=== PATIENT | male | born 1940 | race Caucasian/White ===

== ENCOUNTER 2018-08-16 15:05 | Outpatient (REF) | payer MEDICARE, OTHER, SELFPAY ==
[2018-08-16 21:17] LABS: Anion Gap 8.4 mmol/L (3-11); BUN 29 mg/dL (7-18); CO2 27.6 mmol/L (21.0-32.0); CREATININE 1.24 mg/dL (0.70-1.30); Calcium 9.9 mg/dL (8.5-10.1); Chloride 106 mmol/L (98-107); Estimated GFR 56.68 (mL/min/1.73m2); Glucose 91 mg/dL (70-100); Potassium 3.8 mmol/L (3.5-5.1); Sodium 142 mmol/L (136-145)
== END 2018-08-16 15:25 ==
LOC: NCHCN 15:05
PROVIDERS: PCP Nurse Practitioner Family; Visit Provider Nurse Practitioner Family
DX: I10 Essential (primary) hypertension (principal); M10.9 Gout, unspecified; E83.52 Hypercalcemia; D22.70 Melanocytic nevi of unspecified lower limb, including hip; F41.9 Anxiety disorder, unspecified; F51.04 Psychophysiologic insomnia
CPT/HCPCS: 80048

== ENCOUNTER 2019-02-11 13:59 | Outpatient (REF) | payer MEDICARE, OTHER, SELFPAY ==
[2019-02-11 22:15] LABS: ALT 25 U/L (12-78); AST 15 U/L (15-37); Albumin 3.4 g/dL (3.4-5.0); Alkaline Phosphatase 81 U/L (46-116); Anion Gap 10.1 mmol/L (3-11); BUN 27 mg/dL (7-18); CO2 27.9 mmol/L (21.0-32.0); CREATININE 1.24 mg/dL (0.70-1.30); Calcium 9.6 mg/dL (8.5-10.1); Calculated LDL 95 mg/dL; Chloride 108 mmol/L (98-107); Cholesterol 182 mg/dL (50-200); Estimated GFR 56.68 (mL/min/1.73m2); Glucose 92 mg/dL (70-100); HDL Cholesterol 48 mg/dL (40-60); Potassium 3.8 mmol/L (3.5-5.1); Sodium 146 mmol/L (136-145); Total Protein 6.8 g/dL (6.4-8.2); Triglyceride 196 mg/dL (30-150)
== END 2019-02-11 14:19 ==
LOC: NCHCN 13:59
PROVIDERS: PCP Nurse Practitioner Family; Visit Provider Nurse Practitioner Family
DX: I10 Essential (primary) hypertension (principal); F41.9 Anxiety disorder, unspecified; I25.10 Atherosclerotic heart disease of native coronary artery without angina pectoris; M10.9 Gout, unspecified; K22.70 Barrett's esophagus without dysplasia; Z87.442 Personal history of urinary calculi
CPT/HCPCS: 80053; 80061; 83721

== ENCOUNTER 2019-03-19 10:09 | Outpatient (REF) | payer MEDICARE, OTHER, SELFPAY ==
[2019-03-19 12:08] LABS: ALT 24 U/L (12-78); AST 17 U/L (15-37); Albumin 3.3 g/dL (3.4-5.0); Alkaline Phosphatase 69 U/L (46-116); Anion Gap 7.8 mmol/L (3-11); BUN 23 mg/dL (7-18); Bilirubin, Total 0.9 mg/dL (0.2-1.0); CO2 28.2 mmol/L (21.0-32.0); Calcium 9.4 mg/dL (8.5-10.1); Calculated LDL 103 mg/dL; Chloride 106 mmol/L (98-107); Cholesterol 168 mg/dL (50-200); Estimated GFR 58.86 (mL/min/1.73m2); Glucose 80 mg/dL (70-100); HDL Cholesterol 47 mg/dL (40-60); Potassium 4.1 mmol/L (3.5-5.1); Sodium 142 mmol/L (136-145); TSH 0.65 uIU/mL (0.36-3.74); Total Protein 6.3 g/dL (6.4-8.2); Triglyceride 94 mg/dL (30-150)
== END 2019-03-19 10:29 ==
LOC: NCHCN 10:09
PROVIDERS: PCP Nurse Practitioner Family; Visit Provider Nurse Practitioner Family
DX: I10 Essential (primary) hypertension (principal); I25.10 Atherosclerotic heart disease of native coronary artery without angina pectoris; E83.52 Hypercalcemia
CPT/HCPCS: 80053; 80061; 83721; 84443

== ENCOUNTER 2019-04-15 17:26 | Inpatient (IN) | payer MEDICARE, OTHER, SELFPAY ==
[2019-04-15] VITALS (16 sets, daily range): BP systolic 152–175; BP diastolic 84–97; PULSE 66–91; RESP 12–29; TEMP 36.3–36.6; O2SAT 96–99
--- NOTE | 2019-04-15 17:40 | DI.CT_ITS ---
SYMPTOM/DIAGNOSIS: WORD FINDING DIFFICULTY TODAY CT ANGIOGRAPHY OF THE HEAD AND NECK: CT angiography was performed with multi slice acquisition and multi planar and 3D reconstruction. The common carotid arteries are normal in diameter. There is calcification of both common carotid bulbs. There is plaque in the proximal right internal carotid artery causing approximately 50% stenosis. More distally, the internal carotid artery shows normal diameter. The left internal carotid artery shows normal diameter throughout. The vertebral arteries are normal in diameter. IMPRESSION: Stenosis of approximately 50% of the proximal right internal carotid artery. CTA HEAD: CT angiography was performed with multi slice acquisition and multi planar and 3D reconstruction. The distal vertebral arteries, basal artery and posterior cerebral arteries as well as anterior cerebral artery show normal diameter. The right middle cerebral artery shows normal diameter. The left M-1 segment shows a question of a focal area of narrowing vs artifact. No enhancing masses are seen in the brain. Degenerative changes are noted in the spine. IMPRESSION: Question of a focal area of narrowing in the left M-1 segment vs artifact.
--- NOTE | 2019-04-15 17:40 | DI.RAD_ITS ---
SYMPTOM/DIAGNOSIS: ALTERED MENTATION PA AND LATERAL CHEST: Comparison is made with 11 Jul 2016. The heart size is within normal limits. The aorta is again noted to be tortuous. The lungs are clear. No infiltrate, effusion or pulmonary edema is seen. IMPRESSION: No acute abnormality.
--- NOTE | 2019-04-15 17:40 | DI.CT_ITS ---
SYMPTOM/DIAGNOSIS: WORD FINDING DIFFICULTY TODAY NONCONTRAST HEAD CT: No intracranial hemorrhage, mass or infarct is seen. There is no evidence of skull fracture. The ventricles are normal in size. There is minimal patchiness of the white matter consistent with mild microvascular disease. There is some mucous retention at the floor of the left maxillary sinus. IMPRESSION: Mild white matter changes of small vessel disease. No acute abnormality.
[2019-04-15] MEDS: Normal Saline 1,000 ML 125 ML IV (17:45)
--- NOTE | 2019-04-15 17:46 | ED.GENADUL_ITS ---
Discharge Plan Disposition Condition: Improving Discharge Details Chief Complaint: AMS/LOC Admit Date/Time: 04/15/19 20:24 Admit Provider: Ricardo Fam Attending Provider: Kevin Piña Primary Care Provider: Lori Carey ED Provider: Eyal Conway Discharge Instructions Activity:: Activity as Tolerated Equipment/Supplies:: No Equipment Needed Diet:: As Tolerated Discharge Orders Discharge Orders: Discharge Order (Routine); Ordered 04/16/19 Ordered By: Danitza Stanton Discharge Data Discharge Date/Time-TO BE ENTERED AT DEPARTURE: 04/15/19 21:35 Medical Decision Making 17:50 --79-year-old male with history of hypertension here with confusion and word finding difficulty since waking this morning at 8 AM. Symptoms seem to be waxing and waning today. Patient is frustrated with his inability to find words at times. Speech is fluent. No focal weakness or numbness appreciated on neurologic exam. ECG was reviewed and interpreted by me: Sinus rhythm 81 bpm, normal axis, subtle ST depressions noted V4 to V6 -these were present on prior EKG 07/11/2016. Consider CVA versus acute delirium versus other. Plan to obtain CT and CTA of the head and neck. Will check urinalysis and chest x-ray. 19:15 -- Labs reviewed and nondiagnostic. CT head interpreted by radiology: no acute abnormality. CTA head interpreted by radiologY: focal stenosis in the M1 segment left MCA. Called [facility] [place] to discuss with neurology. Requested radiology send CTA to [facility] [place]. 19:55 -- Spoke with neuro at [facility] [place] Dr. Still and interventional neurologist, discussed ED presentation and course including diagnostics, CTA images reviewed, recommend no intervention at this time. Recommend medical management - recommends asa and plavix, MRI and echo. Plan to admit to hospitalist. Spoke with Dr. Fam. HPI General Mode of arrival: ambulatory . Date/Time Provider Initiated Documentation: 04/15/19 17:27 . Limitations to Documentation: no limitations . Information obtained by: patient . HPI Narrative: 79-year-old male with history of hypertension, presents with chief complaint of difficulty with speech since waking this morning around 8 AM. Patient describes word finding difficulty intermittent throughout the day. notes he is been a little bit confused. Symptoms are intermittent, moderate, no modifiers. He has no associated headache. No focal weakness or numbness. No chest pain or shortness of breath. No abdominal pain. No dysuria or cough. No fever. Related Data Home Medications Medication Instructions Recorded Confirmed Fish Oil 300 mg PO DAILY AM 07/11/16 04/24/19 amlodipine 10 mg PO DAILY 07/11/16 04/24/19 aspirin [Aspir-81] 81 mg PO DAILY 07/11/16 04/24/19 cholecalciferol (vitamin D3) 1,000 unit PO DAILY AM 07/11/16 04/24/19 [Vitamin D3] clonazepam 0.5 mg PO DAILY 07/11/16 04/24/19 famotidine 20 mg PO DAILY AM 07/11/16 04/24/19 lisinopril 40 mg PO DAILY AM 07/11/16 04/24/19 naproxen sodium [Aleve] 220 mg PO 07/11/16 potassium chloride 20 meq PO DAILY AM 07/11/16 04/24/19 saw palmetto 80 mg PO DAILY AM 07/11/16 04/24/19 atorvastatin 20 mg PO QHS #30 tab 04/16/19 04/24/19 clopidogrel [Plavix] 75 mg PO DAILY #30 tab 04/16/19 04/24/19 pantoprazole 40 mg PO DAILY@0730 #30 tab 04/16/19 04/24/19 melatonin 3 mg PO HS PRN 04/24/19 04/24/19 Previous Rx's Medication Instructions Recorded atorvastatin 20 mg PO QHS #30 tab 04/16/19 clopidogrel [Plavix] 75 mg PO DAILY #30 tab 04/16/19 pantoprazole 40 mg PO DAILY@0730 #30 tab 04/16/19 Allergies Allergy/AdvReac Type Severity Reaction Status Date / Time Beta-Blockers AdvReac Other (See Verified 04/24/19 08:00 (Beta-Adrenergic Bloc Comment) lactose AdvReac Unverified 04/24/19 07:59 General Stated Complaint: AMS/LOC LAMIN: 2 Review of Systems Review of Systems All systems reviewed & are unremarkable except as noted in HPI and below Cardiovascular Denies chest pain and Denies dyspnea Respiratory Denies dyspnea Neurologic Reports as per HPI [facility] Medical History (Updated 04/24/19 @ 08:42 by Krystal Ramos) Barretts esophagus (Acute) mild Cataract (Chronic) Essential hypertension (Acute) Fall (Acute) Hx of closed fracture (Acute) R ankle, sternum Surgical History History of decompression of ulnar nerve (Acute) left Hx of arthroscopic knee surgery (Chronic) left Hx of cataract extraction (Chronic) Hx of cholecystectomy (Chronic) Hx of colonoscopy (Chronic) Hx of esophagogastroduodenoscopy (Chronic) Family History Father Heart disease Social History Smoking/Tobacco Use Status: Never Alcohol Intake: current Alcohol Intake frequency: a few times a week Alcohol type: wine Drug use: Never Substance use type: does not use Details: alcohol: t-14 Do you feel safe at home: Yes Do you feel safe in your relationship?: Yes Exam Const General: cooperative and no acute distress HENMT Head: normocephalic and atraumatic Mouth: moist mucous membranes Eyes Conjunctivae: normal conjunctivae Sclera: normal sclerae EOM: EOM intact bilaterally Neck Neck: trachea midline and supple Resp Auscultation: clear to auscultation bilaterally, no rales, no rhonchi and no wheezes Cardio Jugular venous pressure: no JVD Rate: regular rate and not tachycardic Rhythm: regular rhythm GI Palpation: soft, not firm, no guarding, no masses, not rigid and nontender Skin General skin exam: no rashes or lesions noted Neuro General: alert, awake, oriented Patient Orientation: Person, Place and Confused (aug 3) and tone normal Cranial Nerves: CN's II-XI intact bilaterally Cognition: normal cognition Speech: expressive aphasia (intermittent word finding difficulty) Motor: strength 5/5 throughout Sensory Exam: no sensory deficits noted Coordination: [id number] test normal Extrem General: no edema Psych Appearance: grossly normal Mental Status: mental status grossly normal Speech and Movement: speech and movement normal Course Vital Signs Temperature 36.6 C 04/15/19 17:32 Pulse 80 04/15/19 17:32 Respiratory Rate 16 04/15/19 17:32 Blood Pressure 160/84 H 04/15/19 17:32 Pulse Oximetry 99 04/15/19 17:32 Temperature 36.6 C 04/15/19 17:32 Temperature Source Temporal Artery Scan 04/15/19 17:32 Pulse 80 04/15/19 17:32 Respiratory Rate 16 04/15/19 17:32 Respiratory Effort 04/15/19 17:39 Blood Pressure 160/84 H 04/15/19 17:32 Pulse Oximetry 99 04/15/19 17:32 Oxygen Delivery Method Room Air 04/15/19 17:32 Oxygen Flow Rate 0 04/15/19 17:32 Pain Level 0 04/15/19 17:32
[2019-04-15 17:55] LABS: Absolute Basophil Count 0.02 k/cumm (0.0-0.2); Absolute Eosinophil Count 0.27 k/cumm (0.0-0.7); Absolute Lymphocyte Count 1.46 k/cumm (1.2-3.4); Absolute Monocyte Count 0.46 k/cumm (0.11-0.7); Absolute Neutrophil Count 3.35 k/cumm (1.2-6.7); Basophils % 0.4; Eosinophils % 4.9; HCT 44.2 % (40.0-50.0); HGB 15.4 g/dL (13.5-17.5); Lymphocytes % 26.3; Mean Corp. HGB Concentration 34.8 g/dL (32.0-36.0); Mean Corpuscular Hemoglobin 33.6 pg (27.0-33.0); Mean Corpuscular Volume 96.3 fL (80-95); Monocytes % 8.3; Neutrophils % 60.1; Platelet Count 173 x1000/uL (130-400); RBC 4.59 m/cumm (4.50-6.00); RBC Distribution Width 13.3 % (11.8-14.1); White Blood Cell Count 5.56 k/cumm (4.4-10.8)
[2019-04-15 18:10] LABS: ALT 21 U/L (16-63); AST 16 U/L (15-37); Albumin 3.8 g/dL (3.4-5.0); Alkaline Phosphatase 77 U/L (46-116); Anion Gap 9.2 mmol/L (3-11); BUN 21 mg/dL (7-18); Bilirubin, Total 1.4 mg/dL (0.2-1.0); CO2 24.8 mmol/L (21.0-32.0); CREATININE 1.39 mg/dL (0.70-1.30); Calcium 9.8 mg/dL (8.5-10.1); Chloride 107 mmol/L (98-107); Estimated GFR 49.55 (mL/min/1.73m2); Glucose 114 mg/dL (70-100); Magnesium 2.2 mg/dL (1.8-2.4); Potassium 3.7 mmol/L (3.5-5.1); Sodium 141 mmol/L (136-145); Total Protein 7.5 g/dL (6.4-8.2); Troponin I < 0.05 ng/mL (0.00-0.06)
[2019-04-15 18:13] LABS: Bilirubin Negative (Negative); Blood Small (Negative); Clarity Clear (Clear); Glucose Negative (Negative); Ketones Negative (Negative); Leukocyte Esterase Negative (Negative); Nitrite Negative (Negative); Urobilinogen 0.2 EU/dL (Up TO 0.2)
[2019-04-15] MEDS: Omnipaque 350 MG/ML 100 ML BTL IJ (18:23)
--- NOTE | 2019-04-15 18:23 | DI.VRAD_ITS ---
EXAM: CT Head Without Contrast EXAM DATE/TIME: 04/15/2019 5:43 PM CLINICAL HISTORY: 79 years old, male; Speech disturbance; Patient HX: Word finding difficulty today TECHNIQUE: Imaging protocol: Computed tomography of the head without contrast. Other technique: STROKE PROTOCOL was implemented. COMPARISON: No relevant prior studies available. FINDINGS: Brain: Generalized atrophy and chronic white matter ischemic changes. There is no mass, acute hemorrhage or acute infarct. Ventricles: Normal. No ventriculomegaly. Bones/joints: Unremarkable. No acute fracture. Sinuses: There is minimal mucosal thickening in the paranasal sinuses. Mastoid air cells: Visualized mastoid air cells are well aerated. Soft tissues: Unremarkable. IMPRESSION: No acute abnormality. Additional findings as described. ASSESSMENT: ASPECTS ([place] Stroke Program Early CT Score) is 10. Dictated and Authenticated by: Krystal Rene MD. Ordering:ALEKSANDRA Birch MD
[2019-04-15 18:24] LABS: Bacteria Negative HPF (Negative); C & S Indicated? No; Casts 0-2 Hyaline LPF (Negative); Crystals Negative HPF (Negative); Epithelial Cells Negative HPF (Negative); Mucus Trace (Negative); WBC 0-2 HPF (0-5)
--- NOTE | 2019-04-15 18:30 | DI.VRAD_ITS ---
Addendum created by Krystal Rene MD on 04/15/2019 7:52:26 PM EDT Findings discussed withNat MEYER04/15/2019 7:52 PM EDT. Initial report created on 04/15/2019 6:30:32 PM EDT EXAM: CT Angiography Head With Contrast EXAM DATE/TIME: 04/15/2019 5:43 PM CLINICAL HISTORY: 79 years old, male; Speech disturbance; Patient HX: Word finding difficulty today TECHNIQUE: Imaging protocol: Computed tomography angiography of the head with intravenous contrast. 3D rendering: MIP reconstructed images were created and reviewed. COMPARISON: CT HEAD WO 04/15/2019 5:58 PM FINDINGS: Right internal carotid artery: Unremarkable. Intracranial segment is patent with no significant stenosis. No aneurysm. Right anterior cerebral artery: Unremarkable. No occlusion or significant stenosis. No aneurysm. Right middle cerebral artery: Unremarkable. No occlusion or significant stenosis. No aneurysm. Right posterior cerebral artery: Unremarkable. No occlusion or significant stenosis. No aneurysm. Right vertebral artery: Unremarkable. No occlusion or significant stenosis. No aneurysm. Left internal carotid artery: Unremarkable. Intracranial segment is patent with no significant stenosis. No aneurysm. Left anterior cerebral artery: Unremarkable. No occlusion or significant stenosis. No aneurysm. Left middle cerebral artery: There is an 8mm stenosis in the M1 segment of the left MCA best seen on series 6 image 34. The peripheral branches demonstrate normal perfusion within the left MCA territory. No aneurysm. Left posterior cerebral artery: Unremarkable. No occlusion or significant stenosis. No aneurysm. Left vertebral artery: Unremarkable. No occlusion or significant stenosis. No aneurysm. Basilar artery: Unremarkable. No occlusion or significant stenosis. No aneurysm. 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 Additional findings as described. EXAM: CT Angiography Neck With Contrast EXAM DATE/TIME: 04/15/2019 5:43 PM CLINICAL HISTORY: 79 years old, male; Speech disturbance; Patient HX: Word finding difficulty today TECHNIQUE: Imaging protocol: Computed tomographic angiography images of the neck with intravenous contrast using CT angiography protocol. 3D rendering: MIP reconstructed images were created and reviewed. COMPARISON: CT HEAD WO 04/15/2019 5:58 PM FINDINGS: VASCULATURE: Right common carotid artery: Unremarkable. No stenosis. No dissection or occlusion. Right internal carotid artery: There is a mild less than 50% stenosis in the proximal right internal carotid artery. Right external carotid artery: Unremarkable. No occlusion or stenosis of the origin. Right vertebral artery: Unremarkable. No stenosis. No dissection or occlusion. Left common carotid artery: Unremarkable. No stenosis. No dissection or occlusion. Left internal carotid artery: Unremarkable extracranial segment. No stenosis. No dissection or occlusion. Left external carotid artery: Unremarkable. No occlusion or stenosis of the origin. Left vertebral artery: Unremarkable. No stenosis. No dissection or occlusion. NECK: Bones/joints: Multilevel advanced facet arthropathy. There is mild central spinal stenosis, secondary to disc buldge/osteophytic spurring. Soft tissues: Normal. No significant soft tissue swelling. IMPRESSION: Mild less than 50% stenosis in the proximal right internal carotid or repeat significant left carotid stenosis. COMMENT: Reference per NASCET criteria for degree of stenosis: Mild: less than 50% stenosis. Moderate: 50-69% stenosis. Severe: 70-94% stenosis. Near occlusion: 95-99% stenosis. Dictated and Authenticated by: Krystal Rene MD. Ordering:ALEKSANDRA Birch MD
--- NOTE | 2019-04-15 18:31 | DI.VRAD_ITS ---
EXAM: XR Chest, 2 Views EXAM DATE/TIME: 04/15/2019 6:20 PM CLINICAL HISTORY: 79 years old, male; Other: Altered mentation TECHNIQUE: Imaging protocol: XR of the chest Views: 2 views. COMPARISON: CR CHEST 2 VIEWS PA,LAT 07/11/2016 10:00 AM FINDINGS: Lungs: Hyperinflation and interstitial changes consistent with COPD, without focal consolidation or mass. Pleural space: Unremarkable. No pleural effusion. No pneumothorax. Heart/Mediastinum: Unremarkable. No cardiomegaly. Bones/joints: Unremarkable. IMPRESSION: No acute abnormality. Dictated and Authenticated by: Krystal Rene MD. Ordering:ALEKSANDRA Birch MD
[2019-04-15] MEDS: Aspirin 325 MG TAB PO (19:24)
[2019-04-15] MEDS: Clopidogrel 300 MG TAB PO (20:41)
--- NOTE | 2019-04-15 21:29 | W.PM.HP.N ---
Date of service: 04/15/19 Time of Service: 21:29 Assessment and Plan (1) CVA (cerebral vascular accident): Current visit: Yes Status: Chronic continue ASA 81 mg and Plavix 75 mg orally for next 90 days then continue ASA indefinitely. Begin trial of statin, Lipitor 80 mg nightly. check lipid profile for baseline and check glycohemoglobin A1c given his elevated non-fasting glucose. Allow for mild passive hypertension for next 48 to 72 hours then gradually bring his bp under control w/ goal of under 140/85. He is already on norvasc and lisinopril. I will continue these but hold if SBP is under 150 over next 48 hrs. check echocardiogram to evaluate LV funtion, look for valvulopathy, rule out emoblic source of CVA. Monitor on telemetry while here and follow up w/ 30 day event recorder to look for PAF. Check MRI of brain to confirm CVA. Since he had CTA of brain and cervical vessels, no need for MRA or carotid US. 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 History of Present Illness Chief Complaint: aphasia Narrative: 79 yr old male w/ PMH of HTN who presented w/ acute aphasia, onset between 8 a.m. and 9 a.m. today. The patient awoke before his and was checking his emails when his came into check on him he was having difficulty conveying information to him. She indicated that he seemed to not be able to complete his sentences and was searching for the correct words to say. She says that this went on through the morning and he was getting very frustrated. Finally around dinner time he told her that he thought that he was having a stroke, because he he attempted to hold his arms outstretched and he noticed his right arm would drift downward. Upon evaluation in the ER he was noted to still have word finding difficulties but otherwise speech was clear and coherent and he exhibited no motor or sensory deficits. Workup for CVA was done including non-contrast CT of head which demonstrated cerebral atrophy and chronic white matter ischemic changes. CTA of head and neck were performed that demonstrated minimal stenosis of JEZ (<50%) but demonstrated 8 mm stenosis of the M1 segment of his left MCA with normal perfusion of the distal peripheral branches. Dr. Conway, ER attending, spoke w/ [facility]'s neurologist theater set production designer, Dr. Still, as well as the interventional neurologist and they indicated that there is no indication for any acute interventional process but recommended medical management including ASA and Plavix and to check an echo and MRI in the a.m. The patient was given ASA 324 mg along with Plavix 300 mg orally. He is now admitted to med/surg on telemetry to monitor for atrial dysrhythmias as a cause for embolic stroke and to complete his workup including MRA of brain and echocardiogram. Patient denies any chest pain or pressure. However, he has noticed over past couple months exercise induced dyspnea which he previously did not experience. He denies any palpitations or sensation of skipped heart beats. He is a non-smoker and denies any DM but has HTN for which his PCP recently increased his lisinopril dose and stopped his HCTZ. He was also tried on a statin but stopped it on his own, allegedly d/t side effects although he could not articulate what exactly the side effect was. Review of Systems Review of Systems All systems reviewed & are unremarkable except as noted in HPI and below Eyes Denies loss of vision ENT Reports dizziness Cardiovascular Denies chest pain, Denies chest pain with activity, Denies palpitations and Reports dyspnea on exertion Respiratory Reports dyspnea on exertion Musculoskeletal Denies numbness Neurologic Reports as per HPI, Denies abnormal speech, Reports confusion, Reports dizziness, Reports lack of coordination, Denies loss of vision, Reports memory loss, Denies numbness and Denies paresthesias Psychiatric Reports confusion and Reports memory loss Endocrine Denies palpitations [facility] Medical History Cataract (Chronic) Essential hypertension (Acute) Family History Father Heart disease Social History Smoking/Tobacco Use Status: Never Drug use: Never Substance use type: does not use Do you feel safe at home: Yes Do you feel safe in your relationship?: Yes Meds Home Medications Medication Instructions Recorded Confirmed Type amlodipine 10 mg PO DAILY 07/11/16 04/15/19 History aspirin [Aspir 81] 81 mg PO DAILY 07/11/16 04/15/19 History cholecalciferol (vitamin D3) 1,000 unit PO DAILY AM 07/11/16 04/15/19 History [Vitamin D] clonazepam 0.5 mg PO 07/11/16 History famotidine 20 mg PO DAILY AM 07/11/16 04/15/19 History lisinopril 20 mg PO DAILY AM 07/11/16 04/15/19 History naproxen sodium [Aleve] 220 mg PO 07/11/16 History omega-3 fatty acids [Fish Oil] 300 mg PO DAILY AM 07/11/16 04/15/19 History potassium chloride 20 meq PO DAILY AM 07/11/16 04/15/19 History saw palmetto 80 mg PO DAILY AM 07/11/16 04/15/19 History Allergies Allergy/AdvReac Type Severity Reaction Status Date / Time lactose AdvReac Unverified 04/15/19 17:43 Exam Const General: cooperative, healthy appearing and anxious Nutritional Appearance: average body habitus [facility] Head: normal to inspection, no palpable skull fracture, normocephalic and atraumatic Ears: hearing grossly normal bilaterally General nose exam: external nose normal, nares normal and nasal mucous membranes and turbinates normal Face and sinus: normal facial exam Mouth: oral mucosae normal, lip normal, tongue normal, oropharynx normal and moist mucous membranes Teeth and gingiva: dentition normal Eyes General: appearance normal, both eyes and all related structures Visual Vicente: normal visual vicente by confrontation Alignment and Position: alignment normal Periorbital: periorbital findings normal Eyelids: eyelids normal Conjunctivae: conjunctivae normal Sclera: sclerae normal Cornea: corneas normal Pupils: PERRL, normal by confrontation and accommodation normal EOM: EOM intact bilaterally Direct ophthalmoscopy: normal light reflex Neck Neck: normal visual inspection, full ROM, no lymphadenopathy, trachea midline, supple and no JVD Thyroid: thyroid normal Carotids: normal carotid upstroke Lymphatic: no lymphadenopathy noted Chest Chest: normal inspection of the chest and normal palpation of entire chest wall Resp Effort & Inspection: normal respiratory effort and able to speak in complete sentences Auscultation: clear to auscultation bilaterally Cardio Jugular venous pressure: no JVD Palpation: normal PMI Rate: regular rate Rhythm: regular rhythm Heart Sounds: S1 normal, S2 normal, normal, physiologic split S2, no gallops, no murmurs and no rubs Bruits: no abdominal aortic bruits and no carotid bruits Pulses: normal peripheral pulses GI Inspection: normal to inspection Palpation: soft and no hepatosplenomegaly Percussion: normal to percussion Auscultation: normal bowel sounds Rectal Exam: deferred Back/Spine/Pelvis Cervical Spine: normal cervical lordosis Thoracic/Lumbar Spine: thoracic and lumbar spine normal to inspection Skin General skin exam: no rashes or lesions noted, elasticity normal and turgor normal Neuro General: alert, awake, oriented x3, moves all extremities, normal light touch, pain and propioception, no focal motor deficits and CN's II-XI intact bilaterally Cranial Nerves: CN's II-XI intact bilaterally, PERRL, accommodation normal, EOM intact bilaterally, no nystagmus, facial strength normal, tongue midline, gag reflex normal, hearing normal, able to rotate head bilaterally and able to elevate shoulders bilaterally Cognition: normal cognition Speech: expressive aphasia (he frequently can not find the words to complete his thoughts) and other (speech content is frequently rambling from topic to topic) Motor: muscle tone normal throughout, strength 5/5 throughout, no pronator drift, no movement abnormalities noted and no fasciculations Sensory Exam: no sensory deficits noted, normal double simultaneous stimulation, graphesthesia intact bilaterally and stereognosis intact bilaterally Plantar Reflexes: Downgoing: left and Equivocal: right Coordination: [id number] test normal and [id number] test normal (he had difficulty coordinating R heel to christensen; he did not understand) Pupils: Normal pupillary reactivity/response: bilateral Extrem General: normal to inspection, full ROM, normal capillary refill and pedal edema on the right (non-pitting; chronic since old R. ankle fracture) Psych Appearance: grossly normal Mental Status: mental status grossly normal Speech and Movement: delayed speech and pressured speech Mood: congruent mood Affect: normal affect Attitude: cooperative Thought Process: normal Thought Content: normal Insight: insight good Judgment: judgment good Results Imaging Additional studies: EXAM: CT Head Without Contrast EXAM DATE/TIME: 04/15/2019 5:43 PM CLINICAL HISTORY: 79 years old, male; Speech disturbance; Patient HX: Word finding difficulty today TECHNIQUE: Imaging protocol: Computed tomography of the head without contrast. Other technique: STROKE PROTOCOL was implemented. COMPARISON: No relevant prior studies available. FINDINGS: Brain: Generalized atrophy and chronic white matter ischemic changes. There is no mass, acute hemorrhage or acute infarct. Ventricles: Normal. No ventriculomegaly. Bones/joints: Unremarkable. No acute fracture. Sinuses: There is minimal mucosal thickening in the paranasal sinuses. Mastoid air cells: Visualized mastoid air cells are well aerated. Soft tissues: Unremarkable. IMPRESSION: No acute abnormality. Additional findings as described. ASSESSMENT: ASPECTS ([place] Stroke Program Early CT Score) is 10. Dictated and Authenticated by: Krystal Rene MD. EKG: image reviewed (NSR rate 81 bpm, normal ECG) Imaging Studies: EXAM: CT Angiography Head With Contrast EXAM DATE/TIME: 04/15/2019 5:43 PM CLINICAL HISTORY: 79 years old, male; Speech disturbance; Patient HX: Word finding difficulty today TECHNIQUE: Imaging protocol: Computed tomography angiography of the head with intravenous contrast. 3D rendering: MIP reconstructed images were created and reviewed. COMPARISON: CT HEAD WO 04/15/2019 5:58 PM FINDINGS: Right internal carotid artery: Unremarkable. Intracranial segment is patent with no significant stenosis. No aneurysm. Right anterior cerebral artery: Unremarkable. No occlusion or significant stenosis. No aneurysm. Right middle cerebral artery: Unremarkable. No occlusion or significant stenosis. No aneurysm. Right posterior cerebral artery: Unremarkable. No occlusion or significant stenosis. No aneurysm. Right vertebral artery: Unremarkable. No occlusion or significant stenosis. No aneurysm. Left internal carotid artery: Unremarkable. Intracranial segment is patent with no significant stenosis. No aneurysm. Left anterior cerebral artery: Unremarkable. No occlusion or significant stenosis. No aneurysm. Left middle cerebral artery: There is an 8mm stenosis in the M1 segment of the left MCA best seen on series 6 image 34. The peripheral branches demonstrate normal perfusion within the left MCA territory. No aneurysm. Left posterior cerebral artery: Unremarkable. No occlusion or significant stenosis. No aneurysm. Left vertebral artery: Unremarkable. No occlusion or significant stenosis. No aneurysm. Basilar artery: Unremarkable. No occlusion or significant stenosis. No aneurysm. 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 Additional findings as described. EXAM: CT Angiography Neck With Contrast EXAM DATE/TIME: 04/15/2019 5:43 PM CLINICAL HISTORY: 79 years old, male; Speech disturbance; Patient HX: Word finding difficulty today TECHNIQUE: Imaging protocol: Computed tomographic angiography images of the neck with intravenous contrast using CT angiography protocol. 3D rendering: MIP reconstructed images were created and reviewed. COMPARISON: CT HEAD WO 04/15/2019 5:58 PM FINDINGS: VASCULATURE: Right common carotid artery: Unremarkable. No stenosis. No dissection or occlusion. Right internal carotid artery: There is a mild less than 50% stenosis in the proximal right internal carotid artery. Right external carotid artery: Unremarkable. No occlusion or stenosis of the origin. Right vertebral artery: Unremarkable. No stenosis. No dissection or occlusion. Left common carotid artery: Unremarkable. No stenosis. No dissection or occlusion. Left internal carotid artery: Unremarkable extracranial segment. No stenosis. No dissection or occlusion. Left external carotid artery: Unremarkable. No occlusion or stenosis of the origin. Left vertebral artery: Unremarkable. No stenosis. No dissection or occlusion. NECK: Bones/joints: Multilevel advanced facet arthropathy. There is mild central spinal stenosis, secondary to disc buldge/osteophytic spurring. Soft tissues: Normal. No significant soft tissue swelling. IMPRESSION: Mild less than 50% stenosis in the proximal right internal carotid or repeat significant left carotid stenosis. COMMENT: Reference per NASCET criteria for degree of stenosis: Mild: less than 50% stenosis. Moderate: 50-69% stenosis. Severe: 70-94% stenosis. Near occlusion: 95-99% stenosis. Dictated and Authenticated by: Krystal Rene MD. Labs : 04/15/19 17:35 04/15/19 17:35 Laboratory Results - last 24 hr 04/15/19 04/15/19 04/15/19 17:35 17:35 18:02 WBC 5.56 RBC 4.59 Hgb 15.4 Hct 44.2 MCV 96.3 H MCH 33.6 H MCHC 34.8 RDW 13.3 Plt Count 173 MPV 10.0 Immature Gran % 0.0 Neutrophils % 60.1 Lymphocytes % 26.3 Monocytes % 8.3 Eosinophils % 4.9 Basophils % 0.4 Absolute Neutrophils 3.35 Absolute Lymphocytes 1.46 Absolute Monocytes 0.46 Absolute Eosinophils 0.27 Absolute Basophils 0.02 Sodium 141 Potassium 3.7 Chloride 107 Carbon Dioxide 24.8 Anion Gap 9.2 BUN 21 H Creatinine 1.39 H Estimated GFR/1.73 m2 49.55 Glucose 114 H Calcium 9.8 Magnesium 2.2 Total Bilirubin 1.4 H AST 16 ALT 21 Alkaline Phosphatase 77 Troponin I < 0.05 Total Protein 7.5 Albumin 3.8 Urine Color Yellow Urine Clarity Clear Urine pH 7.0 Ur Specific [place] 1.020 Urine Protein Negative Urine Ketones Negative Urine Blood Small H Urine Nitrite Negative Urine Bilirubin Negative Urine Urobilinogen 0.2 Ur Leukocyte Esterase Negative Urine RBC 5-10 H Urine WBC 0-2 Ur Epithelial Cells Negative Urine Crystals Negative Urine Bacteria Negative Urine Casts 0-2 hyaline Urine Mucus Trace Ur Culture Indicated? No Urine Glucose Negative Last Vital Signs Temp 36.6 C 04/15/19 17:32 Pulse 74 04/15/19 18:31 Resp 23 04/15/19 18:31 BP 155/94 H 04/15/19 18:31 Pulse Ox 97 04/15/19 18:31
[2019-04-15 21:58] LABS: Troponin I < 0.05 ng/mL (0.00-0.06)
[2019-04-15] MEDS: Enoxaparin 40 MG/0.4 ML SYR SC (22:38)
[2019-04-15] MEDS: Atorvastatin 40 MG TAB 80 MG PO (22:38)
[2019-04-16 02:10] VITALS: BP 146/85; PULSE 65; RESP 16; TEMP 36.1; O2SAT 97
[2019-04-16] MEDS: Normal Saline 1,000 ML 125 ML IV ×2 (03:07→13:04)
[2019-04-16 04:35] VITALS: BP 128/76; PULSE 65; RESP 18; TEMP 36.2; O2SAT 97
[2019-04-16 07:09] LABS: Abs Immature Grans 0.01 k/cumm (0.0-0.09); Absolute Basophil Count 0.04 k/cumm (0.0-0.2); Absolute Eosinophil Count 0.35 k/cumm (0.0-0.7); Absolute Lymphocyte Count 1.24 k/cumm (1.2-3.4); Absolute Monocyte Count 0.42 k/cumm (0.11-0.7); Absolute Neutrophil Count 1.84 k/cumm (1.2-6.7); HCT 43.7 % (40.0-50.0); HGB 14.7 g/dL (13.5-17.5); Immature Grans % 0.3; Lymphocytes % 31.8; Mean Corp. HGB Concentration 33.6 g/dL (32.0-36.0); Mean Corpuscular Hemoglobin 32.7 pg (27.0-33.0); Mean Corpuscular Volume 97.3 fL (80-95); Mean Platelet Volume 9.9 fL (8.0-11.0); Monocytes % 10.8; Neutrophils % 47.1; Platelet Count 163 x1000/uL (130-400); RBC 4.49 m/cumm (4.50-6.00); RBC Distribution Width 13.3 % (11.8-14.1)
[2019-04-16 07:24] LABS: INR 1.1 (0.9-1.1)
[2019-04-16 07:35] VITALS: BP 167/87; PULSE 65; RESP 18; TEMP 36.6; O2SAT 96
[2019-04-16 07:44] LABS: Anion Gap 10.1 mmol/L (3-11); BUN 14 mg/dL (7-18); CO2 25.9 mmol/L (21.0-32.0); CREATININE 0.97 mg/dL (0.70-1.30); Calculated LDL 107 mg/dL; Chloride 107 mmol/L (98-107); Cholesterol 175 mg/dL (50-200); Glucose 92 mg/dL (70-100); HDL Cholesterol 50 mg/dL (40-60); Potassium 3.3 mmol/L (3.5-5.1); Sodium 143 mmol/L (136-145); TSH (W/Ref FT4) 0.69 uIU/mL (0.36-3.74); Triglyceride 91 mg/dL (30-150)
[2019-04-16 07:50] VITALS: PULSE 70
[2019-04-16] MEDS: Famotidine 20 MG TAB PO (08:11)
[2019-04-16] MEDS: amLODIPine 10 MG TAB PO (08:11)
[2019-04-16] MEDS: Clopidogrel 75 MG TAB PO (08:11)
[2019-04-16] MEDS: Aspirin E.C. 81 MG TABEC PO (08:11)
[2019-04-16] MEDS: Cholecalciferol (Vitamin D3) 1,000 UNIT TAB 1000 UNITS PO (08:12)
[2019-04-16] MEDS: Potassium Chloride 20 MEQ TABCR PO (08:12)
[2019-04-16] MEDS: Lisinopril 20 MG TAB PO (08:12)
[2019-04-16 08:18] LABS: Hemoglobin A1C 5.6 % (4.5-6.2)
--- NOTE | 2019-04-16 09:27 | IN_ITS ---
Date of service: 04/16/19 Time of Service: 08:32 PT Notes Inpatient Physical Therapy Evaluation Date: 04/16/2019 Referring Doctor: Ricardo Fam MD PT Orders: PT CONSULT: Evaluate and treat CVA Precautions: Fall. Standard. Activity as tolerated. Patient Profile/Admitting Diagnosis: Patient is a 79-year-old male with past medical history action who presented to the ED on 04/15/2019 with chief complaints of word finding difficulties, aphasia, and confusion. 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 PMHX: Medical History Cataract (Chronic) Essential hypertension (Acute) Social History/Home Situation: Davonte lives in [place] with his , Georgie in a 2-floor house with a full basement and with a ramp to enter. They a flight of stairs to negotiate to the second floor of the house. They also have a house in [facility] they spent winter at. Patient is indpendent with all aspects of ADLs with occasional use of SC but without any other adaptive equioment. 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 Equipment Owned/DME: SC Subjective: Patient is agreeable to doing a PT consult today. He is looking forward to going home today as he states that he feels okay. He denies headache, dizziness, and chest pain throughout PT session. Objective: General Observation: Patient seen resting in bed. present throughout session. Mental Status: Alert and oriented x 4 Pain: 0/10 ROM: Right Upper Extremity: Shoulder Flexion WFL. Shoulder abduction WFL. Elbow flexion WFL. Wrist flexion WFL. Functional opening and closing of hand WFL. Left Upper Extremity: Shoulder Flexion WFL. Shoulder abduction WFL. Elbow flexion WFL. Wrist flexion WFL. Functional opening and closing of hand WFL. Right Lower Extremity: Hip flexion WFL. Hip abduction WFL. Knee flexion WFL. Ankle dorsiflexion WFL. Ankle plantarflexion WFL. Left Lower Extremity: Hip flexion WFL. Hip abduction WFL. Knee flexion WFL. Ankle dorsiflexion WFL. Ankle plantarflexion WFL. Strength: Right Upper Extremity: Shoulder flexors 4/5. Shoulder abductors 4/5. Elbow flexors 5/5. Elbow extensors 5/5. Rn Clinical Resource strong. Left Upper Extremity: Shoulder flexors 5/5. Shoulder abductors 5/5. Elbow flexors 5/5. Elbow extensors 5/5. Rn Clinical Resource strong. Right Lower Extremity: Hip flexors 4/5. Hip abductors 4/5. Knee flexors 4/5. Knee extensors 4/5. Ankle dorsiflexors 4/5. Ankle plantarflexors 5/5. Left Lower Extremity:Hip flexors 5/5. Hip abductors 5/5. Knee flexors 5/5. Knee extensors 5/5. Ankle dorsiflexors 5/5. Ankle plantarflexors 5/5. Sensation: Intact as to pain and pressure on bilateral lower extremities. Diminished sensation to bilateral soles of feet with 10 grams monofilament testing siginifying at high risk for skin breakdown and falls. Bed Mobility/Transfers: Rolling I Supine to sit I Sit to supine I Sit to stand I Stand to sit I Bed to chair S Chair to bed S Gait: Patient was able to ambulate up to 75 feet of level surface ambulation using a FWW with SBA. Increased hip external rotation seen resulting to toeing out. Balance: Static Sitting: Normal Dynamic Sitting: Normal Static Standing: Good Dynamic Standing: Fair Special Tests: Mobility Limitations Standardized Measure [facility] 6 clicks Basic Mobility Inpatient Short Form: Raw Score: 22 CMS Score: 21% Tinetti/ALEXI Balance Test placing patient at low risk for falls. Informed Consent/Education: Patient instructed in purpose of PT consult and plan of care. he is agreeable Assessment: Patient is a 79-year-old male with diagnosis of embolic cerebrovascular accident involving left MCA with associated expressive aphasia presenting with impairments and functional limitations as indicated below requiring skilled physical therapy services. Patient presents with clinical signs and symptoms consistent with current/admitting diagnoses that have resulted to mobility limitations, gait instability, generalized weakness, and impairment of motor control as demonstrated by the following impairment level findings: 1. Decreased strength to R UE/LE major muscle groups 2. Impaired standing balance 3. Impaired activity tolerance Impairments are contributing to the following functional limitations: 1. Inability to safely ambulate without report of dizziness 2. Increase completion time for mobility ADL performance 3. Increased fall risk 4. Inability to negotiate steps alone safely Patient is assessed as a [id number] moderate complexity based on the following: History: Examination: Demonstrable impairment in strength, balance, and range of motion with underlying impairments and functional limitations as documented above Presentation:Evolving Decision Makin moderate complexity Goals: Goals X1 week 1. Supine-Sit independent 2. Sit-Supine independent 3. Sit-Stand independent 4. Stand-Sit independent 5. Bed-Chair independent 6. Chair-Bed independent 7. Independent gait on level surface with use of least restrictive device for at least 300 feet without report of pain nor dyspnea 8. Independent stair negotiation while holding onto bilateral rails for at least 10 steps without report of pain nor dyspnea 9. Independent with home exercise program 10. Good static and dynamic standing balance/tolerance Plan of Care/Treatment Plan: 1-2x/day, 7 days/week x 1 week. Plan of care has been reviewed with the TELECOMMUNICATIONS ANALYST providing the service under Physical Therapy direction. Initiate Physical Therapy intervention for strengthening, bed mobility, transfers, gait, stairs, balance training, use of assistive device. DISCHARGE RECOMMENDATIONS: OP PT for continued skilling on balance. TREATMENT CODE/TIME: 60014 x 30 minutes, 56585 x 18 minutes beginning at 8:32 AM. Thank you very much for this referral. Caitie Light PT, DPT, CLT [facility]
[2019-04-16] MEDS: Potassium Chloride 20 MEQ TABCR 40 MEQ PO (09:37)
--- NOTE | 2019-04-16 10:30 | MERGE_ITS ---
*[facility]* *[facility]* [address] [place] [address] Date of study: 04/16/2019 Transthoracic Echocardiography M-mode, complete 2D, complete spectral Doppler, and color Doppler *STUDY CONCLUSIONS* Summary: 1. Left ventricle: Wall thickness was increased in a pattern of moderate LVH. Systolic function was normal. The estimated ejection fraction was 55-60%. Diastolic parameters were normal for age. There was no evidence of elevated ventricular filling pressure by Doppler parameters. 2. Aortic valve: There was mild regurgitation. 3. Mitral valve: There was mild to moderate regurgitation. 4. Right ventricle: The cavity size was normal. Wall thickness was normal. Systolic function was normal. 5. Atrial septum: No defect or patent foramen ovale was identified. 6. Pulmonary arteries: Pulmonary systolic pressure was >= 35mm Hg. 7. Inferior vena cava: Poorly visualized. *PATIENT PRESENTATION* Height: 195.6cm (77in ) S/D Pressure: 167 / 87 Weight: 90.3kg (198.6lb ) BSA: 2.21m^2 Test start time: 10:40 AM. Test stop time: 11:35 AM. PERFORMING Unknown PERFORMING Nv CONSULTING Rodríguez Fam ORDERING Rodríguez Fam REFERRING Rodríguez Fam PERSONAL BANKING OFFICER RT Tamiko (R)(JESICA), JANA *PROCEDURE DATA* Procedure information: The patient was identified by two identifiers. This study was interpreted by [facility]. Pertinent images and digital data are archived for permanent storage and are available for subsequent review. No prior study was available for comparison. Study status: Routine. Transthoracic echocardiography. M-mode, complete 2D, complete spectral Doppler, and color Doppler. A Transthoracic Echocardiogram was performed. Scanning was performed from the parasternal, apical, subcostal, and suprasternal notch acoustic windows. Images were obtained using an [id number] cardiac ultrasound machine. Image quality was adequate. Study completion: The patient tolerated the procedure well. History: PMH: CVA. *CARDIAC ANATOMY* Left ventricle: Wall thickness was increased in a pattern of moderate LVH. Systolic function was normal. The estimated ejection fraction was 55-60%. The tissue Doppler parameters were abnormal. Diastolic parameters were normal for age. There was no evidence of elevated ventricular filling pressure by Doppler parameters. Aortic valve: Trileaflet. Doppler: There was no stenosis. There was mild regurgitation. VTI ratio of LVOT to aortic valve: 0.8. Valve area (VTI): 2.7cm^2. Indexed valve area (VTI): 1.2cm^2/m^2. Peak velocity ratio of LVOT to aortic valve: 0.85. Valve area (Vmax): 2.9cm^2. Indexed valve area (Vmax): 1.3cm^2/m^2. Mean velocity ratio of LVOT to aortic valve: 0.82. Valve area (Vmean): 2.8cm^2. Indexed valve area (Vmean): 1.2cm^2/m^2. Mean gradient (S): 3.6mm Hg. Peak gradient (S): 5.9mm Hg. Aorta: Aortic root: The aortic root was normal in size. Ascending aorta: The ascending aorta was mildly dilated. Mitral valve: Doppler: There was no evidence for stenosis. There was mild to moderate regurgitation. Valve area by pressure half-time: 2.7cm^2. Indexed valve area by pressure half-time: 1.2cm^2/m^2. Left atrium: The atrium was normal in size. Atrial septum: No defect or patent foramen ovale was identified. Right ventricle: The cavity size was normal. Wall thickness was normal. Systolic function was normal. Pulmonic valve: Doppler: There was no evidence for stenosis. There was no significant regurgitation. Peak gradient (S): 2mm Hg. Tricuspid valve: Doppler: There was mild regurgitation. Pulmonary artery: Poorly visualized. Pulmonary systolic pressure was >= 35mm Hg. Right atrium: The atrium was normal in size. Pericardium: There was no pericardial effusion. Systemic veins: Inferior vena cava: Poorly visualized. Baseline ECG: Normal sinus rhythm. Measurements Left ventricle Value Reference LV ID, ED, PLAX 5.8 cm 3.5 - 6.0 LV ID, ES, PLAX (H) 4.1 cm 2.1 - 4.0 LV PW thickness, ED, PLAX 0.9 cm LV end-diastolic volume, 1-p A2C 81 ml LV ejection fraction, 1-p A2C 55 % LV end-diastolic volume, 1-p A4C 92 ml LV ejection fraction, 1-p A4C 53 % LV e', lateral 0.075 m/sec LV E/e', lateral 7 LV e', medial 0.051 m/sec LV E/e', medial 10 LV e', average 0.063 m/sec LV E/e', average 8 Ventricular septum Value Reference IVS thickness, ED, PLAX 1.4 cm LVOT Value Reference LVOT ID, A-P 2.1 cm LVOT area 3.4 cm^2 LVOT peak velocity, S 1.03 m/sec LVOT mean velocity, S 0.74 m/sec LVOT VTI, S 19.2 cm LVOT peak gradient, S 4.2 mm Hg LVOT mean gradient, S 2.5 mm Hg Stroke volume (SV), LVOT DP 65 ml Stroke index (SV/bsa), LVOT DP 29 ml/m^2 Aortic valve Value Reference Aortic valve peak velocity, S 1.2 m/sec Aortic valve mean velocity, S 0.9 m/sec Aortic valve VTI, S 24.0 cm Aortic mean gradient, S 3.6 mm Hg Aortic peak gradient, S 5.9 mm Hg VTI ratio, LVOT/AV 0.8 Aortic valve area, VTI 2.7 cm^2 Velocity ratio, peak, LVOT/AV 0.85 Aortic valve area, peak velocity 2.9 cm^2 Velocity ratio, mean, LVOT/AV 0.82 Aortic valve area, mean velocity 2.8 cm^2 Aortic valve area/bsa, mean velocity 1.2 cm^2/m^2 Aorta Value Reference Aortic root ID, ED 3.7 cm Ascending aorta ID, A-P, S 3.6 cm Left atrium Value Reference LA ID, A-P, ES 3.8 cm LA ID/bsa, A-P 1.7 cm/m^2 <=2.2 LA volume/bsa, ES, 1-p A4C 17 ml/m^2 LA volume, ES, 2-p 46 ml LA volume/bsa, ES, 2-p 21 ml/m^2 LA/aortic root ratio 1.02 Mitral valve Value Reference Mitral E-wave peak velocity 0.49 m/sec Mitral A-wave peak velocity 0.94 m/sec Mitral deceleration time (H) 280 ms 150 - 230 Mitral pressure half-time 81 ms Mitral E/A ratio, peak 0.52 Mitral valve area, PHT, DP 2.7 cm^2 Tricuspid valve Value Reference Tricuspid regurg peak velocity 3 m/sec Tricuspid peak RV-RA gradient 36.2 mm Hg Right atrium Value Reference RA area, ES, A4C 13.9 cm^2 8.3 - 19.5 Pulmonic valve Value Reference Pulmonic peak gradient, S 2 mm Hg Legend: (L) and (H) carmencita values outside specified reference range. I have personally reviewed the images and have reviewed and edited the reported findings. Electronically signed by Mikey Hardy MD 04/16/2019 13:21
--- NOTE | 2019-04-16 12:10 | DI.MRI_ITS ---
SYMPTOMS/DIAGNOSIS: CVA MRI OF THE BRAIN: Comparison is made with head CT dated [id number]. T 2 sagittal, T 1, T 2, FLAIR and diffusion axial and gradient echo axial sequences were performed. The exam is limited by patient motion. The patient was unable to lie flat and the anterior head coil could not be used. There are small areas of restricted diffusion seen in the left high frontal lobe as well as in the posterior left parietal lobe. An additional tiny area of restricted diffusion seen adjacent to the left lateral ventricle. There is an old lacunar infarct in the high right frontoparietal region. There are underlying white matter changes of small vessel disease which do not show restricted diffusion. No hemorrhage or mass is seen. The ventricles are normal in size. IMPRESSION: Small focal areas of acute infarct in the high left frontal lobe as well as posterior left parietal lobe.
[2019-04-16 13:07] VITALS: BP 143/81; PULSE 81; RESP 19; TEMP 36; O2SAT 98
--- NOTE | 2019-04-16 13:20 | INITIAL_ITS ---
- If Service Date Differs Date of service: 04/16/19 Time of Service: 13:20 Care Management Initial Assess REASON FOR HOSPITALIZATION:: CVA PAST MEDICAL HISTORY/PAST SURGICAL HISTORY:: Medical History. Cataract (Chronic). Essential hypertension (Acute) PREVIOUS FUNCTIONAL STATUS/SOCIAL/FAMILY SUPPORTS:: Davonte lives in [place] with his , Georgie. They have a house in [place], [place] that they spend four months at. They have one adult son who lives in [place]. 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 He currently has a cane at home. Daniel is independent at baseline with no services. CURRENT FUNCTIONAL STATUS:: Davonte was sitting up in his chair with his , Georgie by his side while the CM was in the room. He told the CM about the stroke he had, and he said that it was scary for him. He is concerned because he has goals that he would like to meet and he is worried that he won't be able to complete them. He told CM that he had an MRI and ECHO ealier today and they were anticipating the doctor talking to them about the results soon. He reported that the plan is to manage his condition with medication once he is medically cleared to go home. CM will continue to follow. ADVANCE DIRECTIVES:: None on file. CM will provide a copy to fill out, as requested by Daniel. Has patient been provided with information about the portal?: Yes Did the patient sign up for the portal?: Yes (CM initiated sign up) CODE STATUS:: Full Code INSURANCE COVERAGE / FINANCIAL ISSUES:: MCR/[employer] Supp CURRENT HOME/COMMUNITY SERVICES/EQUIPMENT:: Davonte has a cane at home. No other current services at this time. PRIMARY CARE PHYSICIAN:: Lori Carey POTENTIAL DISCHARGE NEEDS:: Review of discharge plan, follow up appointment. CM will follow. PATIENT/FAMILY EDUCATION NEEDS:: Review of discharge plan, discussion of self care needs upon discharge including Ask Me Three. ANTICIPATED BARRIERS TO DISCHARGE:: None identified at this time. TRANSPORTATION:: Home via private vehicle driven by his , Georgie. PLAN:: Davonte will be discharged home with new medications to manage his condition once medically cleared. He will continue to follow up with neurology as directed. Davonte will also follow up with speech therapy at [facility]. CM will fax referral with dc summary, 's note and demographics to [phone] upon discharge. CM will continue to follow.
--- NOTE | 2019-04-16 13:43 | CHAPLAIN ---
Davonte was out of the room when I stopped in. I visited with his , and will try to catch up with Davonte tomorrow.
--- NOTE | 2019-04-16 13:57 | W.NEUROCONSU ---
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 Garcia is a 79 year-old, right handed man with hypertension who admitted with expressive aphasia and mild right arm weakness (mostly resolved but with cognitive deficits) found to have an ischemic stroke with an embolic shower to the left hemisphere in the left MCA territory in a watershed distribution with cortical > subcortical involvement. The most likely etiology of his infarct is embolic. The normal LA on TTE goes against atrial fibrillation as the cause. Thus, he may have an arch atheroma or previous carotid plaque that broke off and caused his symptoms. A paroxysmal embolus also remains in the differential as we do not know if he has a shunt or not. I recommend further work-up including extended cardiac monitoring (30 days) and a KIM. Agree with PT, OT, and ST. We do not have ST on staff at present and while he has had improvement, I think it would be prudent to have an official evaluation. In the meantime, he should continue aspirin 81mg daily with clopidogrel 75mg daily x 30 days. After one month, he should d/c aspirin and continue clopidogrel only. I agree with initiation of a statin. He seems to have tolerated this well overnight. I recommend reducing his dose of atorvastatin to 20mg daily at d/c based on his excellent LDL level. He does not drive currently due to poor eyesight. I would recommend that he also not drive at this time due to ongoing cognitive complaints. He should follow-up in the neurology clinic in the next 4 to 6 weeks. DISCLAIMER: This note was created using [employer] voice recognition software. History of Present Illness Chief Complaint: stroke Narrative: Handedness: right. HPI: Mr. Garcia is a 79 year-old, right-handed man with a PMH of hypertension, cataracts, and GERD. He was recently recommended to start a statin cholesterol medication. At that same visit, his blood pressure medications were increased and he restarted aspirin 81 mg daily. He opted to not start his statin medication. He presented to the emergency room yesterday, 04/15/2019. He woke up in the morning with difficulty finding his words, slurring his speech, and confusion. His symptoms waxed and waned throughout the day. He was feeling quite frustrated with inability to find his words. At some point he also noted a right arm drift. He was not a candidate for tPA as he was outside of the time window. [facility] was consulted and he was not a candidate for thrombectomy given a low NIHSS. In the emergency room, his blood pressure was 160/84. His creatinine was 1.39. His EKG was consistent with first-degree heart block. He was started on Plavix in addition to aspirin along with Lipitor 80 mg daily. He has had an extensive work-up as below. Today he and his note that his speech is essentially back to normal, however, they are noticing some difficulties with memory especially with names. He has a baseline history with difficulty naming but this seems much more significant than his baseline, per his . Work-up: -CT head: no acute process. ?old left basal ganglia infarct. Mild chronic small vessel disease changes. (I reviewed these images personally). -MRI brain: scattered areas of infarction in the left MCA distribution including the left occipital lobe, posterior temporal lobe, parietal lobe and fontal lobe including cortex and subcortex in a watershed distribution. There is an old small right fronto-parietal infarct. The above mentions left BG lesion appears to be an enlarged VR space. (I reviewed these images personally as well as with the patient and his ). -TTE: normal EF and LA with no wall motion abnormalities. Bubble study not done. -Tele: 1st degree block -LDL 107, A1c 5.6 Consults Requesting physician: Ricardo Fam Review of Systems Review of Systems All systems reviewed & are unremarkable except as noted in HPI and below PFSH Medical History Cataract (Chronic) Essential hypertension (Acute) Family History Father Heart disease Social History Smoking/Tobacco Use Status: Never Drug use: Never Substance use type: does not use Do you feel safe at home: Yes Do you feel safe in your relationship?: Yes Visit Medication and Allergies Active Medications Generic Name Dose Route Start Last Admin Trade Name Freq PRN Reason Stop Dose Admin Acetaminophen 0 mg 04/15/19 20:35 Tylenol PO Q4H PRN PRN Al Hydrox/Mg Hydrox/Simethicone 30 ml 04/15/19 20:35 Mylanta Liquid PO Q2H PRN PRN Amlodipine Besylate 10 mg 04/16/19 08:30 04/16/19 08:11 Norvasc PO 10 mg DAILY DILLAN Administration Aspirin 81 mg 04/16/19 08:30 04/16/19 08:11 Ecotrin PO 81 mg DAILY DILLAN Administration Atorvastatin Calcium 80 mg 04/15/19 20:45 04/15/19 22:38 Lipitor PO 80 mg QPM DILLAN Administration Cholecalciferol 1,000 units 04/16/19 08:30 04/16/19 08:12 Vitamin D PO 1,000 units DAILY [facility] Administration Clonazepam 0.5 mg 04/16/19 22:00 Klonopin PO HS [facility] Clopidogrel Bisulfate 75 mg 04/16/19 08:30 04/16/19 08:11 Plavix PO 75 mg DAILY [facility] Administration Diazepam 2 mg 04/15/19 07:00 Valium PO ONCE PRN Dimethicone/Zinc Oxide 0 gm 04/15/19 20:35 Inna Protect Cream TP PRN PRN Docusate Sodium 100 mg 04/15/19 20:35 Colace PO TID PRN PRN Enoxaparin Sodium 40 mg 04/15/19 22:00 04/15/19 22:38 Lovenox SC 40 mg Q24H [facility] Administration Famotidine 20 mg 04/16/19 08:30 04/16/19 08:11 Pepcid PO 20 mg DAILY [facility] Administration Sodium Chloride 1,000 mls @ 125 mls/hr 04/15/19 17:45 04/16/19 13:04 Saline 1000ml Bag IV 125 mls/hr INFUSION [facility] Administration IV Miscellaneous Supplies 1 each 04/15/19 17:45 IV DIRECTED [facility] Lisinopril 20 mg 04/16/19 08:30 04/16/19 08:12 Prinivil PO 20 mg DAILY [facility] Administration Magnesium Hydroxide 30 ml 04/15/19 20:35 Milk Of Magnesia PO DAILY PRN PRN Pantoprazole Sodium 40 mg 04/16/19 07:30 04/16/19 08:12 Protonix PO Not Given DAILY@0730 [facility] Polyethylene Glycol 17 gm 04/15/19 20:35 Miralax PO DAILY PRN PRN Constipation Potassium Chloride 20 meq 04/16/19 08:30 04/16/19 08:12 K-Dur PO 20 meq DAILY DILLAN Administration Potassium Chloride 20 meq/ 30 meq 04/16/19 16:00 Potassium Chloride 10 meq PO 04/16/19 16:01 NOW ONE Sodium Chloride 0 ml 04/15/19 17:40 Saline Flush 10 Ml Syringe IVP PRN PRN Allergies lactose Adverse Reaction (Unverified 04/15/19 17:43) Exam Narrative Exam Narrative: Physical Exam: Gen: Patient of apparent stated age, NAD Head and face: no facial or cranial abnormalities Neck: Supple, no meningismus, no occipital tenderness CV: + S1, S2, RRR, no murmur Resp: CTA B/L Abd: soft, nontender, nondistended Ext: No edema. No clubbing or cyanosis. No bony deformity. Neuro Exam: Language: fluency, repetition, and comprehension intact; poor naming (swing for hammock) Mental Status: AAOx3, some confusion on recent and remote events Speech: no dysarthria Cranial nerves: Funduscopy: not performed CN II: visual khoury intact CN III, IV, : extraocular movements intact, no nystagmus, pupils symmetric and reactive to light CN V: face sensation intact to LT and PP CN VII: no facial asymmetry noted CN VIII: hearing intact bilaterally CN IX, X: palate rises symmetrically CN XI: trapezius/SCM 5/5 bilaterally CN XII: protrudes tongue symmetrically Sensory: intact to LT, PP, vibration, and joint position in all extremities Motor: bulk and tone intact. Fine motor movements intact bilaterally. No pronator drift. Strength 5/5 throughout including the deltoids, biceps, triceps, wrist extensors, hip flexors, knee flexors, knee extensors, ankle flexors, and ankle extensors. Reflexes: 2+ at the biceps, triceps, brachioradialis, patella, and achilles tendons bilaterally; slightly brisk in the LE; +Right babinski; left toe down going; Coordination: FTN and HTS intact bilaterally Gait: deferred; not cleared by PT yet Results Last Vital Signs Temp 36.0 C L 04/16/19 13:07 Pulse 81 04/16/19 13:07 Resp 19 04/16/19 13:07 BP 143/81 H 04/16/19 13:07 Pulse Ox 98 04/16/19 13:07 Labs : 04/16/19 06:25 04/16/19 06:25 Laboratory Results - last 24 hr 04/15/19 04/15/19 04/15/19 17:35 17:35 18:02 WBC 5.56 RBC 4.59 Hgb 15.4 Hct 44.2 MCV 96.3 H MCH 33.6 H MCHC 34.8 RDW 13.3 Plt Count 173 MPV 10.0 Immature Gran % 0.0 Neutrophils % 60.1 Lymphocytes % 26.3 Monocytes % 8.3 Eosinophils % 4.9 Basophils % 0.4 Absolute Neutrophils 3.35 Absolute Lymphocytes 1.46 Absolute Monocytes 0.46 Absolute Eosinophils 0.27 Absolute Basophils 0.02 PT INR Sodium 141 Potassium 3.7 Chloride 107 Carbon Dioxide 24.8 Anion Gap 9.2 BUN 21 H Creatinine 1.39 H Estimated GFR/1.73 m2 49.55 Glucose 114 H Hemoglobin A1c Calcium 9.8 Magnesium 2.2 Total Bilirubin 1.4 H AST 16 ALT 21 Alkaline Phosphatase 77 Troponin I < 0.05 Total Protein 7.5 Albumin 3.8 Triglycerides Total Cholesterol LDL Cholesterol, Calc HDL Cholesterol TSH Urine Color Yellow Urine Clarity Clear Urine pH 7.0 Ur Specific [place] 1.020 Urine Protein Negative Urine Ketones Negative Urine Blood Small H Urine Nitrite Negative Urine Bilirubin Negative Urine Urobilinogen 0.2 Ur Leukocyte Esterase Negative Urine RBC 5-10 H Urine WBC 0-2 Ur Epithelial Cells Negative Urine Crystals Negative Urine Bacteria Negative Urine Casts 0-2 hyaline Urine Mucus Trace Ur Culture Indicated? No Urine Glucose Negative 04/15/19 04/16/19 04/16/19 21:32 06:25 06:25 WBC 3.90 L RBC 4.49 L Hgb 14.7 Hct 43.7 MCV 97.3 H MCH 32.7 MCHC 33.6 RDW 13.3 Plt Count 163 MPV 9.9 Immature Gran % 0.3 Neutrophils % 47.1 Lymphocytes % 31.8 Monocytes % 10.8 Eosinophils % 9.0 Basophils % 1.0 Absolute Neutrophils 1.84 Absolute Lymphocytes 1.24 Absolute Monocytes 0.42 Absolute Eosinophils 0.35 Absolute Basophils 0.04 PT INR Sodium 143 Potassium 3.3 L Chloride 107 Carbon Dioxide 25.9 Anion Gap 10.1 BUN 14 D Creatinine 0.97 Estimated GFR/1.73 m2 >= 60.00 Glucose 92 Hemoglobin A1c Calcium 9.0 Magnesium Total Bilirubin AST ALT Alkaline Phosphatase Troponin I < 0.05 Total Protein Albumin Triglycerides 91 Total Cholesterol 175 LDL Cholesterol, Calc 107 HDL Cholesterol 50 TSH 0.69 Urine Color Urine Clarity Urine pH Ur Specific [place] Urine Protein Urine Ketones Urine Blood Urine Nitrite Urine Bilirubin Urine Urobilinogen Ur Leukocyte Esterase Urine RBC Urine WBC Ur Epithelial Cells Urine Crystals Urine Bacteria Urine Casts Urine Mucus Ur Culture Indicated? Urine Glucose 04/16/19 04/16/19 06:25 06:25 WBC RBC Hgb Hct MCV MCH MCHC RDW Plt Count MPV Immature Gran % Neutrophils % Lymphocytes % Monocytes % Eosinophils % Basophils % Absolute Neutrophils Absolute Lymphocytes Absolute Monocytes Absolute Eosinophils Absolute Basophils PT 11.0 INR 1.1 Sodium Potassium Chloride Carbon Dioxide Anion Gap BUN Creatinine Estimated GFR/1.73 m2 Glucose Hemoglobin A1c 5.6 Calcium Magnesium Total Bilirubin AST ALT Alkaline Phosphatase Troponin I Total Protein Albumin Triglycerides Total Cholesterol LDL Cholesterol, Calc HDL Cholesterol TSH Urine Color Urine Clarity Urine pH Ur Specific [place] Urine Protein Urine Ketones Urine Blood Urine Nitrite Urine Bilirubin Urine Urobilinogen Ur Leukocyte Esterase Urine RBC Urine WBC Ur Epithelial Cells Urine Crystals Urine Bacteria Urine Casts Urine Mucus Ur Culture Indicated? Urine Glucose
--- NOTE | 2019-04-16 15:00 | PTTR_ITS ---
Date of service: 04/16/19 Time of Service: 15:00 PT Notes 04/16/19 SUBJECTIVE: Davonte stating he is confused about his diagnosis and would like some clarification from his doctor. He notes he feels fine other than mild SOB with activity. He notes he will not use a walker at home although he does own one. He utilizes a cane a baseline. He admits to having falls at home. OBJECTIVE: Supine in bed. present. Agreeable to PT treatment. TRANSFERS Supine to sit: I Sit to supine: I Sit to stand: I Stand to sit: I GAIT Device: FWW Weight bearing: Full Assist: SBA Distance: 200' THEREX: Performs basic small JODI static balance activities with CGA. Light LE strengthening in standing position with good tolerance. See flow sheet. ASSESSMENT: Pt able to carry on a conversation throughout entire treatment and does not appear to be SOB. No LOB with gait using the FWW. Will assess gait with cane tomorrow if patient remains in hospital. I did encourage pt to utilize his walker at home initially until he feels stronger. PLAN: Continue current POC progressing toward's established goals. Treatment time: [id number], [id number] Yue Marrufo PTA Clinic location: [facility] [place], [place]
[2019-04-16 15:20] VITALS: PULSE 73
[2019-04-16] MEDS: POTASSIUM CHLORIDE 20 MEQ, POTASSIUM CHLORIDE 10 MEQ 30 MEQ PO (15:26)
--- NOTE | 2019-04-16 15:29 | DSE_ITS ---
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 He described having difficulty conveying information to his and word searching difficulties. He also reported that he attempted to hold his hands outstretched and he noticed that his right arm was drifting downward. In the ED, he was found to have ongoing word finding difficulties but his speech was clear. He had a CT head which showed cerebral atrophy and chronic white matter ischemic changes. CTA of head and neck were performed that demonstrated minimal stenosis of JEZ (<50%) but demonstrated 8 mm stenosis of the M1 segment of his left MCA with normal perfusion of the distal peripheral branches. Dr. Conway, ER attending, spoke / [facility]'s neurologist health information provider, Dr. Still, as well as the interventional neurologist and they indicated that there is no indication for any acute interventional process but recommended medical management including ASA and Plavix and recommended echo and MRI. The patient was given Aspirin and plavix in the ED and admitted to the med/surg floor on telemetry for further evaluation and management. He went on to have an MRI Brain which showed small focal areas of acute infarct in the high left frontal lobe as well as posterior left parietal lobe. Echocardiogram showed evidence of moderate LVH, LVEF 55-60%, mild aortic valve regurgitation, mild to moderate mitral valve regurgitation, no patent foamen ovale, pulmonary systolic pressure was >= 35 mm Hg. His Hgb A1c was 5.6, TSH was normal at 0.69, lipid panel was normal, LDL 107. Neurology was consulted and noted that his symptoms had improved, he had an ischemic stroke with an embolic shower to the left hemisphere in the left MCA territory in a watershed distribution with cortical > subcortical involvement. The most likely etiology of his infarct is embolic. Dr. Pruitt also notes that the normal LA on TTE does not support atrial fibrillation as the cause. Thus, he may have an arch atheroma or previous carotid plaque that broke off and caused his symptoms. Dr. Pruitt recommends further work-up including extended cardiac monitoring (30 days) and a KIM. He will be referred for an outpatient KIM. She also recommends outpatient follow up with Speech Therapy for which he will be referred to at [facility] as we do not have a speech therapist on staff. She also recommends dual antiplatelet therapy with aspirin and plavix for 30 days, then discontinue Aspirin at that time and continue plavix alone. She recommends continuing statin therapy but decreasing the dose from 80 mg to 20 mg based on his excellent LDL level. He is discharged home with the above recommendations and with neurology and PCP follow up. Home Meds and New Rx's Prescriptions: New clopidogrel [Plavix] 75 mg Tablet 75 mg PO DAILY Qty: 30 RF: 0 pantoprazole 40 mg Tablet,Delayed Release (Dr/Ec) 40 mg PO DAILY@0730 Qty: 30 RF: 0 atorvastatin 20 mg tablet 20 mg PO QHS Qty: 30 RF: 0 Continued saw palmetto 80 MG capsule 80 mg PO DAILY AM RF: 0 lisinopril 20 MG tablet 20 mg PO DAILY AM RF: 0 clonazepam 0.5 MG tablet 0.5 mg PO RF: 0 potassium chloride 10 MEQ tablet extended release 20 meq PO DAILY AM RF: 0 aspirin [Aspir-81] 81 MG tablet,delayed release (DR/EC) 81 mg PO DAILY RF: 0 famotidine 20 MG tablet 20 mg PO DAILY AM RF: 0 amlodipine 10 MG tablet 10 mg PO DAILY RF: 0 cholecalciferol (vitamin D3) [Vitamin D3] 1,000 UNIT capsule 1,000 unit PO DAILY AM RF: 0 Fish Oil 300 MG capsule 300 mg PO DAILY AM RF: 0 naproxen sodium [Aleve] 220 MG capsule 220 mg PO RF: 0 Discharge Instructions Instructions: Ischemic Stroke (DC) Additional Instructions: Take both Aspirin and Plavix for 30 days, then stop aspirin and continue on plavix alone. Omeprazole for stomach protection. Atorvastatin 20 mg daily for secondary stroke prevention. Follow instructions for heart monitor. You are being referred for a KIM (transesophageal echocardiogram) as an outpatient. You are also being referred for a speech therapy evaluation at [facility]. Referrals: [facility] [Outside] (Speech Therapy Department will call you with an appointment. ) Jesu Haas [ NON-[facility] STAFF PHYSICIAN] - 05/01/19 1:15 pm Charmaine Pruitt MD [ [facility] STAFF PHYSICIAN] - 05/14/19 8:45 am Activity:: Activity as Tolerated Equipment/Supplies:: No Equipment Needed Diet:: As Tolerated Discharge Orders Discharge Orders: Discharge Order (Routine); Ordered 04/16/19 Ordered By: Danitza Stanton Other Ambulatory Orders: Cardiac Event Recorder (Outpt) (ONCE) Location: None Selected Ordered By: Danitza Stanton Exam Narrative Exam Narrative: General: elderly man laying in bed with head of bed elevated, alert and oriented, speech clear, occasional word finding difficulties. HEENT: normocephalic, atraumatic, pupils equal and round, EOMI, mucous membranes moist. Neck: supple, no JVD. Respiratory: respirations even and unlabored. Lung sounds clear bilaterally. Cardiovascular: heart sounds regular, no murmur appreciated. GI: soft, nontender on palpation. Extremities: chronic right sided edema, no clubbing or cyanosis, pedal pulses palpable. DS: Data Vitals/I&O Vitals and I&O: Vital Signs Temperature 36.0 C L 04/16/19 13:07 Temperature Source Tympanic 04/16/19 13:07 Pulse 81 04/16/19 13:07 Pulse Rhythm Regular 04/16/19 10:26 Pulse 80 04/15/19 18:31 Respiratory Rate 19 04/16/19 13:07 Respiratory Effort 04/16/19 10:26 Respiratory Depth Normal 04/16/19 10:26 Respiratory Pattern Normal 04/16/19 10:26 Blood Pressure 143/81 H 04/16/19 13:07 Blood Pressure Mean 110 04/15/19 18:31 Pulse Oximetry 98 04/16/19 13:07 Oxygen Delivery Method Room Air 04/16/19 13:07 Oxygen Flow Rate 0 04/16/19 13:07 Pain Level 0 04/16/19 13:07 Intake & Output 04/15/19 04/16/19 04/16/19 23:59 11:59 23:59 Intake Total 2720 / 2960 240 / 2960 Output Total 1650 / 1650 550 / 550 Balance -1650 / -1650 2170 / 2410 240 / 2410 Weight 90.4 kg 90.6 kg Intake: IV 1999 / 1999 Oral 720 / 960 240 / 960 Output: Urine 1650 / 1650 550 / 550 Other: Urine Color Pale Pale Yellow Urine Appearance Clear Clear Urine Odor None None Comment reported by RN that brought patient up to M.S. Voiding Methods Urinal Urinal Completed studies during hospitalization [Text1]: 04/15/19: PA AND LATERAL CHEST: Comparison is made with 11 Jul 2016. The heart size is within normal limits. The aorta is again noted to be tortuous. The lungs are clear. No infiltrate, effusion or pulmonary edema is seen. IMPRESSION: No acute abnormality. NONCONTRAST HEAD CT: No intracranial hemorrhage, mass or infarct is seen. There is no evidence of skull fracture. The ventricles are normal in size. There is minimal patchiness of the white matter consistent with mild microvascular disease. There is some mucous retention at the floor of the left maxillary sinus. IMPRESSION: Mild white matter changes of small vessel disease. No acute abnormality. Patient Name: DAVONTE ASCENCIO #: [id number]: MS Ordering Provider: Eyal Conway M.D. : ADM IN Primary Care Provider: Lori Carey Date of Exam: 04/15/19Sex: M : 2Age: 79 Exam(s) a CT:CT brain & neck CTA SYMPTOM/DIAGNOSIS: WORD FINDING DIFFICULTY TODAY CT ANGIOGRAPHY OF THE HEAD AND NECK: CT angiography was performed with multi slice acquisition and multi planar and 3D reconstruction. The common carotid arteries are normal in diameter. There is calcification of both common carotid bulbs. There is plaque in the proximal right internal carotid artery causing approximately 50% stenosis. More distally, the internal carotid artery shows normal diameter. The left internal carotid artery shows normal diameter throughout. The vertebral arteries are normal in diameter. IMPRESSION: Stenosis of approximately 50% of the proximal right internal carotid artery. CTA HEAD: CT angiography was performed with multi slice acquisition and multi planar and 3D reconstruction. The distal vertebral arteries, basal artery and posterior cerebral arteries as well as anterior cerebral artery show normal diameter. The right middle cerebral artery shows normal diameter. The left M-1 segment shows a question of a focal area of narrowing vs artifact. No enhancing masses are seen in the brain. Degenerative changes are noted in the spine. IMPRESSION: Question of a focal area of narrowing in the left M-1 segment vs artifact Date of study: 04/16/2019 Transthoracic Echocardiography M-mode, complete 2D, complete spectral Doppler, and color Doppler *STUDY CONCLUSIONS* Summary: 1. Left ventricle: Wall thickness was increased in a pattern of moderate LVH. Systolic function was normal. The estimated ejection fraction was 55-60%. Diastolic parameters were normal for age. There was no evidence of elevated ventricular filling pressure by Doppler parameters. 2. Aortic valve: There was mild regurgitation. 3. Mitral valve: There was mild to moderate regurgitation. 4. Right ventricle: The cavity size was normal. Wall thickness was normal. Systolic function was normal. 5. Atrial septum: No defect or patent foramen ovale was identified. 6. Pulmonary arteries: Pulmonary systolic pressure was >= 35mm Hg. 7. Inferior vena cava: Poorly visualized. MRI OF THE BRAIN: Comparison is made with head CT dated . T 2 sagittal, T 1, T 2, FLAIR and diffusion axial and gradient echo axial sequences were performed. The exam is limited by patient motion. The patient was unable to lie flat and the anterior head coil could not be used. There are small areas of restricted diffusion seen in the left high frontal lobe as well as in the posterior left parietal lobe. An additional tiny area of restricted diffusion seen adjacent to the left lateral ventricle. There is an old lacunar infarct in the high right frontoparietal region. There are underlying white matter changes of small vessel disease which do not show restricted diffusion. No hemorrhage or mass is seen. The ventricles are normal in size. IMPRESSION: Small focal areas of acute infarct in the high left frontal lobe as well as posterior left parietal lobe. Labs on day of discharge: Labs from last 24 hours 04/16/19 04/16/19 04/16/19 06:25 06:25 06:25 WBC 3.90 L RBC 4.49 L Hgb 14.7 Hct 43.7 MCV 97.3 H MCH 32.7 MCHC 33.6 RDW 13.3 Plt Count 163 MPV 9.9 Immature Gran % 0.3 Neutrophils % 47.1 Lymphocytes % 31.8 Monocytes % 10.8 Eosinophils % 9.0 Basophils % 1.0 Absolute Neutrophils 1.84 Absolute Lymphocytes 1.24 Absolute Monocytes 0.42 Absolute Eosinophils 0.35 Absolute Basophils 0.04 PT 11.0 INR 1.1 Sodium Potassium Chloride Carbon Dioxide Anion Gap BUN Creatinine Estimated GFR/1.73 m2 Glucose Hemoglobin A1c 5.6 Calcium Magnesium Total Bilirubin AST ALT Alkaline Phosphatase Troponin I Total Protein Albumin Triglycerides Total Cholesterol LDL Cholesterol, Calc HDL Cholesterol TSH Urine Color Urine Clarity Urine pH Ur Specific Willow Urine Protein Urine Ketones Urine Blood Urine Nitrite Urine Bilirubin Urine Urobilinogen Ur Leukocyte Esterase Urine RBC Urine WBC Ur Epithelial Cells Urine Crystals Urine Bacteria Urine Casts Urine Mucus Ur Culture Indicated? Urine Glucose 04/16/19 04/15/19 04/15/19 06:25 21:32 18:02 WBC RBC Hgb Hct MCV MCH MCHC RDW Plt Count MPV Immature Gran % Neutrophils % Lymphocytes % Monocytes % Eosinophils % Basophils % Absolute Neutrophils Absolute Lymphocytes Absolute Monocytes Absolute Eosinophils Absolute Basophils PT INR Sodium 143 Potassium 3.3 L Chloride 107 Carbon Dioxide 25.9 Anion Gap 10.1 BUN 14 D Creatinine 0.97 Estimated GFR/1.73 m2 >= 60.00 Glucose 92 Hemoglobin A1c Calcium 9.0 Magnesium Total Bilirubin AST ALT Alkaline Phosphatase Troponin I < 0.05 Total Protein Albumin Triglycerides 91 Total Cholesterol 175 LDL Cholesterol, Calc 107 HDL Cholesterol 50 TSH 0.69 Urine Color Yellow Urine Clarity Clear Urine pH 7.0 Ur Specific Willow 1.020 Urine Protein Negative Urine Ketones Negative Urine Blood Small H Urine Nitrite Negative Urine Bilirubin Negative Urine Urobilinogen 0.2 Ur Leukocyte Esterase Negative Urine RBC 5-10 H Urine WBC 0-2 Ur Epithelial Cells Negative Urine Crystals Negative Urine Bacteria Negative Urine Casts 0-2 hyaline Urine Mucus Trace Ur Culture Indicated? No Urine Glucose Negative 04/15/19 04/15/19 17:35 17:35 WBC 5.56 RBC 4.59 Hgb 15.4 Hct 44.2 MCV 96.3 H MCH 33.6 H MCHC 34.8 RDW 13.3 Plt Count 173 MPV 10.0 Immature Gran % 0.0 Neutrophils % 60.1 Lymphocytes % 26.3 Monocytes % 8.3 Eosinophils % 4.9 Basophils % 0.4 Absolute Neutrophils 3.35 Absolute Lymphocytes 1.46 Absolute Monocytes 0.46 Absolute Eosinophils 0.27 Absolute Basophils 0.02 PT INR Sodium 141 Potassium 3.7 Chloride 107 Carbon Dioxide 24.8 Anion Gap 9.2 BUN 21 H Creatinine 1.39 H Estimated GFR/1.73 m2 49.55 Glucose 114 H Hemoglobin A1c Calcium 9.8 Magnesium 2.2 Total Bilirubin 1.4 H AST 16 ALT 21 Alkaline Phosphatase 77 Troponin I < 0.05 Total Protein 7.5 Albumin 3.8 Triglycerides Total Cholesterol LDL Cholesterol, Calc HDL Cholesterol TSH Urine Color Urine Clarity Urine pH Ur Specific Willow Urine Protein Urine Ketones Urine Blood Urine Nitrite Urine Bilirubin Urine Urobilinogen Ur Leukocyte Esterase Urine RBC Urine WBC Ur Epithelial Cells Urine Crystals Urine Bacteria Urine Casts Urine Mucus Ur Culture Indicated? Urine Glucose [facility] Medical History Cataract (Chronic) Essential hypertension (Acute) Family History Father Heart disease Social History Smoking/Tobacco Use Status: Never Drug use: Never Substance use type: does not use Do you feel safe at home: Yes Do you feel safe in your relationship?: Yes
--- NOTE | 2019-04-18 15:39 | PT.INDS ---
Date of service: 04/18/19 Time of Service: 15:39 PT Notes Inpatient Physical Therapy Discharge Summary Dates: 04/18/2019 Dates of Service: 04/16/2019 only Referring Doctor: Ricardo Fam MD PT Orders: PT CONSULT: Evaluate and treat CVA Precautions: Fall. Standard. Activity as tolerated. Patient Profile/Admitting Diagnosis: Patient is a 79-year-old male with past medical history action who presented to the ED on 04/15/2019 with chief complaints of word finding difficulties, aphasia, and confusion. 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 PMHX: Medical History Cataract (Chronic) Essential hypertension (Acute) Social History/Home Situation: Davonte lives in [place] with his , Georgie in a 2-floor house with a full basement and with a ramp to enter. They a flight of stairs to negotiate to the second floor of the house. They also have a house in [facility] they spent winter at. Patient is indpendent with all aspects of ADLs with occasional use of SC but without any other adaptive equioment. 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 Equipment Owned/DME: SC Subjective: NT Objective: General Observation: NT Mental Status: NT Pain: 0/10 ROM: Right Upper Extremity: Shoulder Flexion WFL. Shoulder abduction WFL. Elbow flexion WFL. Wrist flexion WFL. Functional opening and closing of hand WFL. Left Upper Extremity: Shoulder Flexion WFL. Shoulder abduction WFL. Elbow flexion WFL. Wrist flexion WFL. Functional opening and closing of hand WFL. Right Lower Extremity: Hip flexion WFL. Hip abduction WFL. Knee flexion WFL. Ankle dorsiflexion WFL. Ankle plantarflexion WFL. Left Lower Extremity: Hip flexion WFL. Hip abduction WFL. Knee flexion WFL. Ankle dorsiflexion WFL. Ankle plantarflexion WFL. Strength: Right Upper Extremity: Shoulder flexors 4/5. Shoulder abductors 4/5. Elbow flexors 5/5. Elbow extensors 5/5. Field Advisor strong. Left Upper Extremity: Shoulder flexors 5/5. Shoulder abductors 5/5. Elbow flexors 5/5. Elbow extensors 5/5. Field Advisor strong. Right Lower Extremity: Hip flexors 4/5. Hip abductors 4/5. Knee flexors 4/5. Knee extensors 4/5. Ankle dorsiflexors 4/5. Ankle plantarflexors 5/5. Left Lower Extremity:Hip flexors 5/5. Hip abductors 5/5. Knee flexors 5/5. Knee extensors 5/5. Ankle dorsiflexors 5/5. Ankle plantarflexors 5/5. Sensation: Intact as to pain and pressure on bilateral lower extremities. Diminished sensation to bilateral soles of feet with 10 grams monofilament testing siginifying at high risk for skin breakdown and falls. Bed Mobility/Transfers: Rolling I Supine to sit I Sit to supine I Sit to stand I Stand to sit I Bed to chair S Chair to bed S Gait: Patient was able to ambulate up to 200 feet of level surface ambulation using a FWW with SBA. Increased hip external rotation seen resulting to toeing out. Balance: Static Sitting: Normal Dynamic Sitting: Normal Static Standing: Good Dynamic Standing: Fair Tinetti/ALEXI Balance Test placing patient at low risk for falls. Assessment: Patient is a 79-year-old male with diagnosis of embolic cerebrovascular accident involving left MCA with associated expressive aphasia presenting with impairments and functional limitations as indicated below requiring skilled physical therapy services. Patient presents with clinical signs and symptoms consistent with current/admitting diagnoses that have resulted to mobility limitations, gait instability, generalized weakness, and impairment of motor control as demonstrated by the following impairment level findings: 1. Decreased strength to R UE/LE major muscle groups 2. Impaired standing balance 3. Impaired activity tolerance Impairments are contributing to the following functional limitations: 1. Inability to safely ambulate without report of dizziness 2. Increase completion time for mobility ADL performance 3. Increased fall risk 4. Inability to negotiate steps alone safely Goals: Goals X1 week 1. Supine-Sit independent MET 2. Sit-Supine independent MET 3. Sit-Stand independent MET 4. Stand-Sit independent MET 5. Bed-Chair independent MET 6. Chair-Bed independent MET 7. Independent gait on level surface with use of least restrictive device for at least 300 feet without report of pain nor dyspnea NOT MET 8. Independent stair negotiation while holding onto bilateral rails for at least 10 steps without report of pain nor dyspnea NOT MET 9. Independent with home exercise program MET 10. Good static and dynamic standing balance/tolerance NOT MET Plan of Care/Treatment Plan: 1-2x/day, 7 days/week x 1 week. Plan of care has been reviewed with the [employer] [employer] providing the service under Physical Therapy direction. Initiate Physical Therapy intervention for strengthening, bed mobility, transfers, gait, stairs, balance training, use of assistive device. DISCHARGE RECOMMENDATIONS: OP PT for continued skilling on balance. TREATMENT CODE/TIME: NT Thank you very much for this referral. Caitie Light PT, DPT, CLT [facility]
--- NOTE | 2019-05-21 11:46 | W.CARDEVENT ---
Cardiac Event Recorder Cardiac Event Note: The study is a 30 day MCT monitor ordered for history of PAF. -There were no events of atrial fibrillation recorded. -Sinus rhythm with an average heart rate of 72 bpm (min 55 - max 127). -There were rare (less than 1%) isolated and paired atrial premature complexes. -There were rare (less than 1%) isolated ventricular premature complexes. -There was one 5 beat run of nonsustained ventricular tachycardia which corresponded to a triggered event. -All patient triggered events were associated with sinus rhythm, or an isolated atrial/ventricular premature complex -There were no pauses greater than 3 seconds
== END 2019-04-16 17:17 | disposition home or self-care (01) | DRG 66 ==
LOC: ER 20:48 → MS 21:36
PROVIDERS: Admitting Provider Internal Medicine; Emergency Provider Student in an Organized Health Care Education/Training Program; PCP Nurse Practitioner Family; Visit Provider Internal Medicine
DX: I63.412 Cerebral infarction due to embolism of left middle cerebral artery (principal); I10 Essential (primary) hypertension; R47.01 Aphasia; R53.1 Weakness; I08.0 Rheumatic disorders of both mitral and aortic valves
CPT/HCPCS: 36415; 36416; 70496; 70498; 80048; 80053; 80061; 82962; 93005; 93270; 93306; 96360; 96361; 97110; 97162; 97530; 99223; 99239; 99285; J1650; 70450; 70551; 71046; 81003; 81015; 83036; 83735; 84443; 84484; 85025; 85610; 93010; J3490

== ENCOUNTER → 2019-04-16 09:15 | Outpatient (BNVA) | payer MEDICARE, OTHER, SELFPAY | PROVIDERS: PCP Nurse Practitioner Family; Visit Provider Psychiatry & Neurology Neurology | DX: R69 Illness, unspecified (principal) ==

== ENCOUNTER 2019-04-24 00:41 | Outpatient (CLI) | payer MEDICARE, OTHER, SELFPAY | END 2019-04-24 01:01 | PROVIDERS: PCP Nurse Practitioner Family; Visit Provider Nurse Practitioner Adult Health | DX: I63.40 Cerebral infarction due to embolism of unspecified cerebral artery (principal); I08.0 Rheumatic disorders of both mitral and aortic valves; I10 Essential (primary) hypertension | CPT/HCPCS: 93312; 93320; 93325 ==

== ENCOUNTER 2019-04-24 07:35 | Day surgery (SDC) | payer MEDICARE, OTHER, SELFPAY ==
[2019-04-24 08:14] VITALS: BP 127/82; PULSE 68; RESP 16; TEMP 36.3; O2SAT 96
[2019-04-24] MEDS: Normal Saline 1,000 ML 20 ML IV (08:30)
--- NOTE | 2019-04-24 08:30 | MERGE_ITS ---
*[facility]* *[facility]* [address] [place] [address] Date of study: 04/24/2019 Transesophageal Echocardiography 2D, spectral Doppler, and color Doppler *STUDY CONCLUSIONS* Impressions: No cardiac source of emboli was identified. Summary: 1. Left ventricle: Systolic function was normal. Wall motion was normal; there were no regional wall motion abnormalities. 2. Mitral valve: Mild prolapse, involving the middle segment of the anterior leaflet. There was mild regurgitation. 3. Left atrium: No evidence of thrombus in the atrial cavity or appendage. 4. Right ventricle: The cavity size was normal. Wall thickness was normal. Systolic function was normal. 5. Atrial septum: No defect or patent foramen ovale was identified. Echo contrast study and agitated saline contrast study showed no atrial level shunt, in the baseline state. *PATIENT PRESENTATION* Height: 195.6cm (77in ) S/D Pressure: 144 / 96 Weight: 90.3kg (198.6lb ) BSA: 2.21m^2 PERFORMING Unknown PERFORMING [facility] PEDIATRIC DENTIST RT Tamiko (R)(CT), [facility] CONSULTING Lucia Bennett Kelley H REFERRING Lucia Bennett *PROCEDURE DATA* Procedure information: Jayden Abbasi MD supervised and was present for the performance of the entire procedure. This study was interpreted by [facility]. Pertinent images and digital data are archived for permanent storage and are available for subsequent review. Study status: Routine. Diagnostic transesophageal echocardiography. 2D, spectral Doppler, and color Doppler. Consent: The risks, benefits, and alternatives to the procedure were explained to the patient and consent was verbally obtained. Barriers to education: No barriers to education identified. Initial setup. The patient was brought to the laboratory in the fasting state. Surface ECG leads, blood pressure measurements, and pulse oximetric signals were monitored. Sedation. Moderate sedation was administered by Anesthesiology. A Transesophageal echocardiogram was performed for exclusion of intracardiac thrombi. Topical anesthesia was obtained using viscous lidocaine. An adult multiplane transesophageal probe was inserted by Jayden Abbasi MDwithout difficulty. Images were obtained using an [id number] cardiac ultrasound machine. Image quality was adequate. Intravenous contrast (normal saline)was administered by [facility] staff to enhance delineation of left ventricular endocardial borders. Prior to administration at least two (2) contiguous segments of the left ventricular border were not visualized. The saline was administered by RN . A total amount of 10ml of saline was used.The transesophageal probe was removed. Study completion: The patient tolerated the procedure well. There was no blood loss or specimens removed during the procedure. There were no complications. *INDICATIONS AND HISTORY* Indications: Cerebrovascular Occlusion w/ Infarction I63.50, known, pre-procedure. History: PMH: Embolic CVA. Stroke. *CARDIAC ANATOMY* Left ventricle: Systolic function was normal. Wall motion was normal; there were no regional wall motion abnormalities. Aortic valve: Structurally normal valve. Trileaflet; normal thickness leaflets. Cusp separation was normal. No evidence of vegetation. Doppler: There was no significant regurgitation. Aorta: There was no atheroma. There was no evidence for dissection. Aortic root: The aortic root was not dilated. Ascending aorta: The ascending aorta was normal in size. Aortic arch: The aortic arch was normal in size. Descending aorta: The descending aorta was normal in size. Mitral valve: Leaflet separation was normal. Mild prolapse, involving the middle segment of the anterior leaflet. No evidence of vegetation. Doppler: There was mild regurgitation. Left atrium: The atrium was normal in size. No evidence of thrombus in the atrial cavity or appendage. The appendage was morphologically a left appendage, multilobulated, and of normal size. Emptying velocity was normal. Atrial septum: No defect or patent foramen ovale was identified. Echo contrast study and agitated saline contrast study showed no atrial level shunt, in the baseline state. Right ventricle: The cavity size was normal. Wall thickness was normal. Systolic function was normal. Pulmonic valve: Structurally normal valve. No evidence of vegetation. Doppler: There was no significant regurgitation. Tricuspid valve: Structurally normal valve. Leaflet separation was normal. No evidence of vegetation. Doppler: There was no significant regurgitation. Pulmonary artery: The main pulmonary artery was normal-sized. Right atrium: The atrium was normal in size. No evidence of thrombus in the atrial cavity or appendage. The appendage was morphologically a right appendage. Pericardium: There was no pericardial effusion. Baseline ECG: Normal sinus rhythm. I have personally reviewed the images and have reviewed and edited the reported findings. Electronically signed by Jayden Abbasi 04/24/2019 10:37
[2019-04-24 10:55] VITALS: BP 146/77; PULSE 55; RESP 16; TEMP 36.7; O2SAT 98
--- NOTE | 2019-04-29 11:31 | ROE_ITS ---
DATE OF PROCEDURE: April 24, 2019 TYPE OF PROCEDURE: Transesophageal echocardiogram. PRE-PROCEDURE DIAGNOSIS: TIA POST-PROCEDURE DIAGNOSIS: No cardiac source of embolism. Anterior mitral valve prolapse with mild regurgitation. SEDATION: Provided by Anesthesia. COMMENTS: After verbal and written informed consent were obtained, a transesophageal echocardiogram was performed without complications. Detailed report in [facility] and [employer].
== END 2019-04-24 11:23 | disposition home or self-care (01) ==
LOC: SUR 07:35
PROVIDERS: PCP Nurse Practitioner Family; Visit Provider Student in an Organized Health Care Education/Training Program
PROC: (CPT 93312; principal; 2019-04-24 09:00)
DX: I63.40 Cerebral infarction due to embolism of unspecified cerebral artery (principal); I08.0 Rheumatic disorders of both mitral and aortic valves; I10 Essential (primary) hypertension
CPT/HCPCS: 93312; 99204; 93320; 93325

== ENCOUNTER 2019-04-29 09:54 | Emergency (ER) | payer MEDICARE, OTHER, SELFPAY ==
[2019-04-29] VITALS (20 sets, daily range): BP systolic 126–154; BP diastolic 81–94; PULSE 67–90; RESP 9–38; TEMP 36.1–36.5; O2SAT 92–100
--- NOTE | 2019-04-29 10:01 | W.ED.GENAD ---
Discharge Plan Disposition Patient Disposition: HOME Condition: Stable Discharge Details Chief Complaint: CVA/TIA Clinical Impression: Right leg weakness, Creatinine elevation Primary Care Provider: Lori Carey ED Provider: Karyna Conway Home Meds and New Rx's Prescriptions: Continued melatonin 3 mg Tablet 5 mg PO HS PRNRF: 0 saw palmetto 80 MG capsule 80 mg PO DAILY AM RF: 0 lisinopril 20 MG tablet 40 mg PO DAILY AM RF: 0 clonazepam 0.5 MG tablet 0.5 mg PO HS RF: 0 potassium chloride 10 MEQ tablet extended release 20 meq PO DAILY AM RF: 0 aspirin [Aspir-81] 81 MG tablet,delayed release (DR/EC) 81 mg PO DAILY RF: 0 famotidine 20 MG tablet 20 mg PO DAILY AM RF: 0 amlodipine 10 MG tablet 10 mg PO DAILY RF: 0 Fish Oil 300 MG capsule 300 mg PO DAILY AM RF: 0 clopidogrel [Plavix] 75 mg Tablet 75 mg PO DAILY Qty: 30 RF: 0 atorvastatin 20 mg tablet 20 mg PO QHS Qty: 30 RF: 0 acetaminophen 325 mg Tablet 650 mg PO BID RF: 0 Discontinued naproxen sodium [Aleve] 220 MG capsule 220 - 440 mg PO DIRECTED RF: 0 No Action sertraline 25 mg tablet 25 mg PO DAILY Qty: 30 RF: 5 Discharge Instructions Instructions: Ischemic Stroke (GEN), Weakness (ED), Impaired Kidney Function (ED) Additional Instructions: Please return immediately to the emergency department if you develop any new or worsening symptoms or if you become otherwise concerned. It is extremely important that you call as soon as possible to make an appointment to be seen in follow-up for this visit by your primary care doctor and also by Dr. Pruitt of neurology. 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 On exam patient is well and nontoxic appearing. Patient has mild expressive aphasia and 4 out of 5 strength of the right leg, cranial nerves intact, no other focal neurologic deficit. Exam/history is not consistent with trauma, infectious etiology, cauda equina syndrome. Doubt spinal etiology. Concern for CVA. Plan for EKG, CT head, screening labs, IV, telemetry. Anticipate CTA brain, MRI. CTA negative. On reassessment patient reporting that his right leg weakness seems to have resolved completely. Patient reports that he feels essentially at his baseline, without any acute symptoms. I discussed patient presentation results with Dr. Pruitt of neurology, who recommended MRI brain for potential TIA, No CTA indicated at this time given resolution of symptoms, will see patient in follow-up as an outpatient if MRI unchanged from prior. MRI negative for interval change. Unclear etiology of transient right leg weakness. No further intervention indicated at this time. Patient continues to report that he has no further change in symptoms. I had a lengthy discussion with the patient regarding return to emergency department precautions, importance of outpatient follow-up with his primary care doctor and also with Dr. Pruitt of neurology, and home care. Patient his verbalized understanding the plan and were amenable. All questions were answered. Patient was discharged home with clear plan for outpatient follow-up. Medical Records Medical records reviewed: Yes I reviewed the patient's medical records. Imaging Data Radiologic Study: Attestation: I personally reviewed and interpreted this imaging study as follows: Radiologist's impression: NONCONTRAST HEAD CT: A noncontrast enhanced examination was performed. There is mild generalized atrophy. Regions of diminished absorption in the frontoparietal white matter bilaterally would be consistent with small vessel disease. There is no evidence of an intra/extra-axial hemorrhage or mass. The ventricles are intact. There is no evidence of a skull facture. Note is made of retention cysts in the left maxillary antrum. The paranasal sinuses are otherwise unremarkable. There is no evidence of a mastoid effusion. SUMMARY: No evidence of an acute intracranial abnormality. BRAIN MRI: The examination was carried out according to the usual protocol. T 2 sagittal, T 2 axial, diffusion weighted axial, T 2 axial FLAIR blade and T 1 axial and T 2 axial Hemo pulse sequences were performed. Comparison is made with the prior study of 04/16/19. Again identified are the small areas of restricted diffusion in the high left frontal lobe as well as the posterior left parietal lobe. Again identified is what appears to represent a small area of restricted diffusion adjacent to the left lateral ventricle. There is an old lacunar infarct in the high right frontoparietal region and there are bilateral findings consistent with small vessel disease which do not appear to exhibit restricted diffusion. No mass or hemorrhage is identified. SUMMARY: No significant interval change when compared with the previous examination with note again made of apparent small regions of infarction involving the high left frontal lobe and posterior left parietal lobe. There is no evidence of a hemorrhage or mass or definite interval change when compared with the prior examination. Lab Data Lab results reviewed: Yes I reviewed the patient's lab results. ECG Data Attestation: I personally reviewed and interpreted this ECG (s) as follows: Interpretation: EKG shows sinus rhythm at 84, normal axis, no acute ischemic changes as compared to prior, nondiagnostic EKG HPI General Mode of arrival: ambulatory. Date/Time Provider Initiated Documentation: 04/29/19 09:59. Limitations to Documentation: no limitations. Information obtained by: patient, family, RN notes reviewed and old records reviewed. HPI Narrative: Davonte Garcia is a 79 y/o man with history of hypertension, recent CVA presenting to the emergency department with right leg weakness. Patient is accompanied by his who also provides a history. Per their report and record review, patient was seen here 04/15 for expressive aphasia and right arm weakness. He was admitted to [facility] for embolic stroke in the left MCA territory. 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 Patient reports that since his discharge he has been feeling generally more weak, but otherwise essentially at baseline. He has had some mild continued a aphasia, but his right arm weakness seemed to improve completely. Patient reports that last night at approximately 8 PM he noticed that his right leg seemed weak. This is a new symptom and not present during his initial stroke. Patient reports that weakness progressed last night and was worse this morning. He denies any other new symptoms. He has no pain. No fevers, shortness of breath, cough, vomiting, diarrhea, numbness, tingling. No weakness other than generalized and to the right leg. No trauma. Has been eating and drinking as usual. Has been taking his medications as prescribed. Related Data Home Medications Medication Instructions Recorded Confirmed Fish Oil 300 mg PO DAILY AM 07/11/16 05/14/19 amlodipine 10 mg PO DAILY 07/11/16 05/14/19 aspirin [Aspir-81] 81 mg PO DAILY 07/11/16 05/14/19 clonazepam 0.5 mg PO HS 07/11/16 05/14/19 famotidine 20 mg PO DAILY AM 07/11/16 05/14/19 lisinopril 40 mg PO DAILY AM 07/11/16 05/14/19 potassium chloride 20 meq PO DAILY AM 07/11/16 05/14/19 saw palmetto 80 mg PO DAILY AM 07/11/16 05/14/19 atorvastatin 20 mg PO QHS #30 tab 04/16/19 05/14/19 clopidogrel [Plavix] 75 mg PO DAILY #30 tab 04/16/19 05/14/19 melatonin 5 mg PO HS PRN 04/24/19 05/14/19 acetaminophen 650 mg PO BID 04/29/19 05/14/19 sertraline 25 mg tablet 25 mg PO DAILY #30 tab 05/14/19 05/14/19 Previous Rx's Medication Instructions Recorded atorvastatin 20 mg PO QHS #30 tab 04/16/19 clopidogrel [Plavix] 75 mg PO DAILY #30 tab 04/16/19 sertraline 25 mg tablet 25 mg PO DAILY #30 tab 05/14/19 Allergies Allergy/AdvReac Type Severity Reaction Status Date / Time metoprolol AdvReac Intermediate per pcp Unverified 05/14/19 08:45 list hydrochlorothiazide AdvReac Mild per pcp Unverified 05/14/19 08:45 list Beta-Blockers AdvReac Other (See Verified 05/14/19 08:45 (Beta-Adrenergic Bloc Comment) lactose AdvReac Unverified 05/14/19 08:45 General LAMIN: 2 Review of Systems Review of Systems Narrative: Constitutional: denies fevers Eyes: denies eye pain ENT: denies facial pain, dental pain, sore throat Cardiovascular: denies chest pain, edema Respiratory: denies SOB, cough GI: denies abdominal pain, vomiting, diarrhea : denies flank pain MSK: denies back pain, neck pain, arthralgias, myalgias Skin: denies rash Neuro: denies headaches, numbness, reports right leg weakness weakness [facility] Medical History (Updated 05/14/19 @ 11:03 by Charmaine Pruitt MD) Anxiety (Chronic) Barretts esophagus (Acute) mild Cataract (Chronic) 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 (Acute) Essential hypertension (Acute) GERD (gastroesophageal reflux disease) (Chronic) Hx of closed fracture (Acute) R ankle, sternum Hyperlipidemia (Acute) Insomnia (Acute) Surgical History History of decompression of ulnar nerve (Acute) left Hx of arthroscopic knee surgery (Chronic) left Hx of cataract extraction (Chronic) Hx of cholecystectomy (Chronic) Hx of colonoscopy (Chronic) Hx of esophagogastroduodenoscopy (Chronic) Social History (Updated 05/14/19 @ 11:03 by Charmaine Pruitt MD) Smoking/Tobacco Use Status: Never Alcohol Intake: current Alcohol Intake frequency: a few times a week Alcohol type: wine Drug use: Never Substance use type: does not use Details: alcohol: t-14 Household members: spouse current occupation: Retired. Do you feel safe at home: Yes Do you feel safe in your relationship?: Yes Exam Narrative Exam Narrative: Constitutional: well and [id number], pleasant, conversing normally HENT: head atraumatic/normocephalic/normal inspection, mucous membranes moist Eyes: conjunctiva normal, sclera normal, pupils 3mm b/l Neck: no stridor, normal ROM, trachea midline Chest: normal inspection Resp: normal work of breathing, LCTAB Cardio: normal rate, normal rhythm GI: abdomen soft, non-tender, non-distended Back: normal inspection, no rash Skin: warm, dry, normal color, no rash Neuro: alert, not altered, cranial nerves II through XII intact, mild expressive aphasia, motor 4-5 right lower extremity, 5 out of 5 left lower extremity and bilateral upper extremities, sensation intact bilateral lower extreme knees, normal tone Ext: no edema Psych: normal mood, normal affect, normal behavior
--- NOTE | 2019-04-29 10:25 | DI.CT_ITS ---
SYMPTOM/DIAGNOSIS: RT LEG WEAKNESS, CONFUSION NONCONTRAST HEAD CT: A noncontrast enhanced examination was performed. There is mild generalized atrophy. Regions of diminished absorption in the frontoparietal white matter bilaterally would be consistent with small vessel disease. There is no evidence of an intra/extra-axial hemorrhage or mass. The ventricles are intact. There is no evidence of a skull facture. Note is made of retention cysts in the left maxillary antrum. The paranasal sinuses are otherwise unremarkable. There is no evidence of a mastoid effusion. SUMMARY: No evidence of an acute intracranial abnormality.
[2019-04-29 10:57] LABS: Absolute Basophil Count 0.03 k/cumm (0.0-0.2); Absolute Eosinophil Count 0.27 k/cumm (0.0-0.7); Absolute Lymphocyte Count 1.15 k/cumm (1.2-3.4); Absolute Monocyte Count 0.37 k/cumm (0.11-0.7); Absolute Neutrophil Count 2.58 k/cumm (1.2-6.7); Basophils % 0.7; Eosinophils % 6.1; HCT 46.2 % (40.0-50.0); HGB 15.9 g/dL (13.5-17.5); Lymphocytes % 26.1; Mean Corp. HGB Concentration 34.4 g/dL (32.0-36.0); Mean Corpuscular Hemoglobin 32.9 pg (27.0-33.0); Mean Corpuscular Volume 95.7 fL (80-95); Mean Platelet Volume 10.4 fL (8.0-11.0); Monocytes % 8.4; Neutrophils % 58.7; Platelet Count 197 x1000/uL (130-400); RBC 4.83 m/cumm (4.50-6.00)
[2019-04-29 11:06] LABS: INR 1.1 (0.9-1.1); PTT Activated 25.7 sec (21.0-31.4); Prothrombin Time 10.6 sec (9.3-11.0)
[2019-04-29 11:11] LABS: ALT 23 U/L (16-63); AST 20 U/L (15-37); Albumin 3.6 g/dL (3.4-5.0); Alkaline Phosphatase 78 U/L (46-116); BUN 19 mg/dL (7-18); Bilirubin, Total 1.7 mg/dL (0.2-1.0); Calcium 9.7 mg/dL (8.5-10.1); Chloride 106 mmol/L (98-107); Estimated GFR 49.14 (mL/min/1.73m2); Glucose 102 mg/dL (70-100); Potassium 3.5 mmol/L (3.5-5.1); Sodium 141 mmol/L (136-145); Total Protein 7.5 g/dL (6.4-8.2)
[2019-04-29 11:16] LABS: Troponin I < 0.05 ng/mL (0.00-0.06)
--- NOTE | 2019-04-29 12:30 | DI.MRI_ITS ---
SYMPTOMS/DIAGNOSIS: RT LEG WEAKNESS BRAIN MRI: The examination was carried out according to the usual protocol. T 2 sagittal, T 2 axial, diffusion weighted axial, T 2 axial FLAIR blade and T 1 axial and T 2 axial Hemo pulse sequences were performed. Comparison is made with the prior study of 04/16/19. Again identified are the small areas of restricted diffusion in the high left frontal lobe as well as the posterior left parietal lobe. Again identified is what appears to represent a small area of restricted diffusion adjacent to the left lateral ventricle. There is an old lacunar infarct in the high right frontoparietal region and there are bilateral findings consistent with small vessel disease which do not appear to exhibit restricted diffusion. No mass or hemorrhage is identified. SUMMARY: No significant interval change when compared with the previous examination with note again made of apparent small regions of infarction involving the high left frontal lobe and posterior left parietal lobe. There is no evidence of a hemorrhage or mass or definite interval change when compared with the prior examination.
--- NOTE | 2019-04-29 22:26 | NUR.NOTE ---
faxed referal to neuro 04/29/2019Nursing Note:
== END 2019-04-29 13:49 | disposition home or self-care (01) ==
PROVIDERS: Emergency Provider Student in an Organized Health Care Education/Training Program; PCP Nurse Practitioner Family
DX: R53.1 Weakness (principal); R79.89 Other specified abnormal findings of blood chemistry; I10 Essential (primary) hypertension; Z86.73 Personal history of transient ischemic attack (TIA), and cerebral infarction without residual deficits
CPT/HCPCS: 36415; 80053; 93005; 99285; 70450; 70551; 84484; 85025; 85610; 85730; 93010

== ENCOUNTER → 2019-05-14 08:39 | Outpatient (BNVA) | payer MEDICARE, OTHER, SELFPAY | PROVIDERS: PCP Nurse Practitioner Family; Referring Provider Nurse Practitioner; Visit Provider Psychiatry & Neurology Neurology | DX: I63.412 Cerebral infarction due to embolism of left middle cerebral artery (principal); R47.01 Aphasia; R41.3 Other amnesia; F41.9 Anxiety disorder, unspecified; I10 Essential (primary) hypertension | CPT/HCPCS: 99215 ==

== ENCOUNTER 2019-05-21 11:46 | Outpatient (CLI) | payer MEDICARE, OTHER, SELFPAY | END 2019-05-21 12:06 | PROVIDERS: PCP Nurse Practitioner Family; Referring Provider Nurse Practitioner Family; Visit Provider Internal Medicine Cardiovascular Disease | DX: I63.412 Cerebral infarction due to embolism of left middle cerebral artery (principal); I47.2 Ventricular tachycardia; I49.1 Atrial premature depolarization; I49.3 Ventricular premature depolarization | CPT/HCPCS: 93228 ==

== ENCOUNTER → 2019-06-11 14:38 | Outpatient (BNVA) | payer MEDICARE, OTHER, SELFPAY | PROVIDERS: PCP Nurse Practitioner Family; Referring Provider Nurse Practitioner Family; Visit Provider Psychiatry & Neurology Neurology | DX: I69.320 Aphasia following cerebral infarction (principal); I69.318 Other symptoms and signs involving cognitive functions following cerebral infarction; F41.9 Anxiety disorder, unspecified; R53.83 Other fatigue | CPT/HCPCS: 99214 ==

== ENCOUNTER 2019-06-27 09:17 | Outpatient (REF) | payer MEDICARE, OTHER, SELFPAY ==
[2019-06-27 13:01] LABS: ALT 25 U/L (16-63); AST 16 U/L (15-37); Albumin 3.5 g/dL (3.4-5.0); Alkaline Phosphatase 65 U/L (46-116); Anion Gap 6.2 mmol/L (3-11); BUN 19 mg/dL (7-18); Bilirubin, Total 1.7 mg/dL (0.2-1.0); CO2 29.8 mmol/L (21.0-32.0); CREATININE 1.34 mg/dL (0.70-1.30); Calcium 9.6 mg/dL (8.5-10.1); Calculated LDL 56 mg/dL; Chloride 107 mmol/L (98-107); Cholesterol 122 mg/dL (50-200); Estimated GFR 51.69 (mL/min/1.73m2); Glucose 88 mg/dL (70-100); HDL Cholesterol 54 mg/dL (40-60); Potassium 4.1 mmol/L (3.5-5.1); Sodium 143 mmol/L (136-145); Total Protein 6.6 g/dL (6.4-8.2); Triglyceride 63 mg/dL (30-150)
== END 2019-06-27 09:37 ==
LOC: NCHCN 09:17
PROVIDERS: PCP Nurse Practitioner Family; Visit Provider Nurse Practitioner Family
DX: I10 Essential (primary) hypertension (principal); E83.52 Hypercalcemia
CPT/HCPCS: 80053; 80061

== ENCOUNTER 2019-06-28 08:37 | Outpatient (CLI) | payer MEDICARE, OTHER, SELFPAY | END 2019-06-28 08:57 | PROVIDERS: PCP Nurse Practitioner Family; Visit Provider Internal Medicine Cardiovascular Disease | DX: I63.512 Cerebral infarction due to unspecified occlusion or stenosis of left middle cerebral artery (principal); I47.2 Ventricular tachycardia | CPT/HCPCS: 99204; 99215; 93005; 93010 ==

== ENCOUNTER → 2019-12-16 07:52 | Outpatient (BNVA) | payer MEDICARE, OTHER, SELFPAY | PROVIDERS: PCP Nurse Practitioner Family; Referring Provider Nurse Practitioner Family; Visit Provider Psychiatry & Neurology Neurology | DX: I63.412 Cerebral infarction due to embolism of left middle cerebral artery (principal); R47.01 Aphasia; R41.3 Other amnesia; F41.9 Anxiety disorder, unspecified; R00.1 Bradycardia, unspecified; R29.898 Other symptoms and signs involving the musculoskeletal system; I10 Essential (primary) hypertension | CPT/HCPCS: 99214; 99443 ==

== ENCOUNTER 2020-01-31 10:05 | Outpatient (REF) | payer MEDICARE, OTHER, SELFPAY ==
[2020-01-31 22:09] LABS: ALT 53 U/L (16-63); AST 30 U/L (15-37); Albumin 3.8 g/dL (3.4-5.0); Alkaline Phosphatase 82 U/L (46-116); Anion Gap 5.8 mmol/L (3-11); BUN 19 mg/dL (7-18); Bilirubin, Total 1.8 mg/dL (0.2-1.0); CO2 28.2 mmol/L (21.0-32.0); CREATININE 1.17 mg/dL (0.70-1.30); Calcium 9.5 mg/dL (8.5-10.1); Calculated LDL 58 mg/dL (<100); Chloride 107 mmol/L (98-107); Cholesterol 125 mg/dL (<200); Glucose 84 mg/dL (74-106); HDL Cholesterol 52 mg/dL (40-60); Potassium 3.9 mmol/L (3.5-5.1); Sodium 141 mmol/L (136-145); TSH 0.53 uIU/mL (0.36-3.74); Triglyceride 77 mg/dL (<150); Vitamin B12 715 pg/mL (193-986)
== END 2020-01-31 10:25 ==
LOC: NCHCN 10:05
PROVIDERS: PCP Nurse Practitioner Family; Visit Provider Nurse Practitioner Family
DX: I10 Essential (primary) hypertension (principal); R53.83 Other fatigue; N18.1 Chronic kidney disease, stage 1
CPT/HCPCS: 80053; 80061; 82607; 84443

== ENCOUNTER 2021-01-05 15:02 | Outpatient (REF) | payer MEDICARE, OTHER, SELFPAY ==
[2021-01-05 15:23] LABS: Abs Immature Grans 0.01 10^3/uL (0.0-0.06); Absolute Basophil Count 0.04 10^3/uL (0.0-0.2); Absolute Eosinophil Count 0.49 10^3/uL (0.0-0.7); Absolute Lymphocyte Count 1.06 10^3/uL (1.2-3.4); Absolute Monocyte Count 0.39 10^3/uL (0.1-0.8); Absolute Neutrophil Count 2.14 10^3/uL (1.2-6.7); Eosinophils % 11.9; HCT 45.2 % (40.0-50.0); HGB 14.9 g/dL (13.5-17.5); Immature Grans % 0.2; Lymphocytes % 25.7; MCH 32.5 pg (27.0-33.0); MCV 98.7 fL (80-95); MPV 10.3 fL (8.0-11.0); Monocytes % 9.4; Neutrophils % 51.8; Nucleated RBC 0 %; Platelet Count 160 10^3/uL (130-400); RBC 4.58 10^6/uL (4.36-5.78); RDW 13.2 % (11.8-14.1); RDW-SD 48.2 fL; WBC 4.13 10^3/uL (4.4-10.8)
[2021-01-05 21:19] LABS: ALT 36 U/L (16-63); AST 19 U/L (15-37); Albumin 3.7 g/dL (3.4-5.0); Alkaline Phosphatase 77 U/L (46-116); Anion Gap 7.5 mmol/L (3-11); BUN 23 mg/dL (7-18); Bilirubin, Total 1.6 mg/dL (0.2-1.0); CO2 28.5 mmol/L (21.0-32.0); CREATININE 1.1 mg/dL (0.70-1.30); Calcium 9.8 mg/dL (8.5-10.1); Chloride 108 mmol/L (98-107); Cholesterol 140 mg/dL (<200); Glucose 83 mg/dL (74-106); Magnesium 2.2 mg/dL (1.8-2.4); Potassium 4.5 mmol/L (3.5-5.1); Sodium 144 mmol/L (136-145); TSH (W/Ref FT4) 0.71 uIU/mL (0.36-3.74); Total Protein 6.9 g/dL (6.4-8.2); Triglyceride 75 mg/dL (<150); Vitamin B12 429 pg/mL (193-986)
[2021-01-05 21:33] LABS: Calculated LDL 66 mg/dL (<100); HDL Cholesterol 59 mg/dL (40-60)
[2021-01-05 22:04] LABS: NT-proBNP 118 pg/mL (<300)
[2021-01-06 17:06] LABS: PSA, Screening 0.8 ng/mL (0.0-6.5)
== END 2021-01-05 15:03 | disposition home or self-care (01) ==
LOC: NCHCN 15:02
PROVIDERS: PCP Nurse Practitioner Family; Visit Provider Nurse Practitioner Family
DX: I10 Essential (primary) hypertension (principal); R53.83 Other fatigue; N18.1 Chronic kidney disease, stage 1; R60.0 Localized edema; K22.70 Barrett's esophagus without dysplasia; N40.0 Benign prostatic hyperplasia without lower urinary tract symptoms; Z12.5 Encounter for screening for malignant neoplasm of prostate; R26.9 Unspecified abnormalities of gait and mobility; R06.02 Shortness of breath
CPT/HCPCS: 80053; 80061; 84153; 82607; 83735; 83880; 84443; 85025

== ENCOUNTER 2021-01-12 01:11 | Outpatient (CLI) | payer MEDICARE, OTHER, SELFPAY ==
--- NOTE | 2021-01-12 | DI.US_ITS ---
APPROVED REPORT EXAM: Comprehensive 2D, Doppler, and color-flow Echocardiogram Patient Location: Out-Patient Potato Loader: Coreen Bydr RDCS (AE) Indications: Pedal edema, Mitral valve prolapse Other Information Study Quality: Adequate Conclusion Left Ventricle : The left ventricle is normal size. The left ventricular ejection fraction is within the normal range. There is normal left ventricular wall thickness. There is normal LV segmental wall motion. The left ventricular diastolic function is normal. LVEF is 60%. Right Ventricle : The right ventricle is normal size. The right ventricular systolic function is norm al. The RVSP is 22.6 mmHg. Atria : The left atrium size is normal. The right atrium size is normal. Mitral Valve : Mild mitral annular calcification. Mild to moderate mitral regurgitation. Mitral regur gitation jet is eccentrically directed. No evidence of mitral valve stenosis. Great Vessels : The aortic root is normal in size. The ascending aorta is moderately dilated. IVC is normal in size and collapses >50% with inspiration. Compared to study from 04/16/2019, there is no significant change. Wall motion Left Ventricle The left ventricle is normal size. The left ventricular ejection fraction is within the normal range. There is normal left ventricular wall thickness. There is normal LV segmental wall motion. The left ventricular diastolic function is normal. There is no ventricular septal defect visualized. LVEF is 6 0%. Right Ventricle The right ventricle is normal size. The right ventricular systolic function is normal. The RVSP is 22 .6 mmHg. Atria The left atrium size is normal. The right atrium size is normal. The interatrial septum is intact wit h no evidence for an atrial septal defect. Aortic Valve The Aortic valve is sclerotic. Aortic valve is trileaflet. There is no aortic valvular stenosis. Trac e aortic regurgitation. Mitral Valve Mild mitral annular calcification. No evidence of mitral valve stenosis. Mild to moderate mitral regu rgitation. Mitral regurgitation jet is eccentrically directed. Tricuspid Valve The tricuspid valve is normal in structure. There is no tricuspid valve stenosis. Trace to mild tricu spid regurgitation. Pulmonic Valve The pulmonary valve is normal in structure. There is no pulmonic valvular stenosis. Trace pulmonic re gurgitation. Great Vessels The aortic root is normal in size. The ascending aorta is moderately dilated. IVC is normal in size a nd collapses >50% with inspiration. Pericardium There is no pericardial effusion. 2D Dimensions IVSD d PLAX 1.05 cm M: 0.6-1.2 LV Vol A2C d MOD 92.8 mL LVPW d PLAX 1.03 cm M: 0.6 - 1.2 LV Vol A4C d MOD 70.8 mL LVID d PLAX 4.74 cm M: 4.2 - 5.8 LA vol/ BSA A2C s A-L 20.1 mL/m2 LVDs 3.30 cm M: 2.5 - 4.0 LA vol/ BSA A4C s A-L 17.7 mL/m2 Ao Root d 3.43 cm M: 3.1 - 3.7 LA Vol/ BSA Biplane s A-L 19.2 mL/m2 RA Area A4C 13.33 cm2 LA Area A4C s MOD 13.28 cm2 RA Vol/ BSA A4C s A-L 12.2 mL/m2 LA Area A2C s MOD 14.39 cm2 Ao Asc Diam d 4.04 cm M: 2.6 - 3.4 LV EF A4C MOD 62.8 % LV EF Teichholz 56.3 % LV EF A2C MOD 60.6 % LVEF (Strange's) 59.68 % M: 52 - 72 LV EF Biplane MOD 59.7 % LV Volume 60.00 mL M: 62 - 150 SV 49.49 mL LV Volume Index 26.90 mL/m2 M: 34 - 74 SV Index 22.13 mL/m2 LV Vol Biplane MOD 82.9 mL FS 29.40 % M-Mode TAPSE 2.10 cm (M/F) >1.7 LV Diastology MV E' medial 0.054 (>0.07 m/s) E/A Ratio 0.7 LV E/e MED 9.20 (<14) MV E Vmax 0.50 (0.4-1.3 m/s) MV E' lateral 0.090 (>0.1 m/s) MV A Vmax 0.75 (0.4-1.3 m/s) LV E/e LAT 5.50 (<14) MV E/A Ratio 0.63 MV E/E' medial 9.20 MV E/E' lateral 5.50 Aortic Valve LVOT Area 3.47 cm2 AoV Area Vmax 2.37 cm2 LVOT Vmax 0.89 m/s AoV Area/ BSA (Vmax) 1.06 cm2/m2 LVOT Mean Franck. 0.64 m/s YEE Mean Franck. 2.62 cm2 LVOT Peak Grad 3.1 mmHg YEE Mean Franck. Index 1.17 cm2/m2 LVOT Mean Grad 1.8 mmHg AR DT 4080 msec LVOT VTI 0.183 m AR PHT 1183 msec LVOT Diam s 2.10 cm AoV Vmax 1.30 m/s Velocity Ratio 0.68 AoV Mean Franck. 0.84 m/s AoV Peak Grad 6.7 mmHg LVOT SV 63.33 mL AoV Mean Grad 3.3 mmHg AoV VTI 0.261 m AoV Area VTI 2.43 cm2 AoV Area/ BSA (VTI) 1.09 cm/m2 Mitral Valve MV DT 416 (160-240 msec) MR Vmax 5.82 m/s MV PHT 121 msec MR VTI 1.898 m MV Area PHT 1.82 cm2 MR Peak Grad 135.4 mmHg MV VTI 0.387 m MR Mean Grad 90.8 mmHg MV VTI Annulus 0.391 m MR PISA Radius 0.48 cm MV Area VTI 1.65 (4.0-6.0 cm2) MR EROA 0.09 cm2 MR Aliasing Velocity 0.35 m/s MR PISA 1.44 cm2 Pulmonary Valve PV Vmax 0.77 (0.5-1.5 m/s) RVOT Peak Gr. 0.99 mmHg PV Peak Grad 2.3 mmHg RVOT Mean Gr. 0.55 mmHg PV Mean Grad 1.2 mmHg RVOT VTI 0.133 m PV VTI 0.131 m RVOT Vmax 0.50 m/s Tricuspid Valve TR Peak Grad 19.5 mmHg TR Vmax 2.21 m/s RA Pressure 3.00 mmHg RVSP (TR) 22.6 mmHg
== END 2021-01-12 01:31 ==
PROVIDERS: PCP Nurse Practitioner Family; Visit Provider Nurse Practitioner Family
DX: I34.1 Nonrheumatic mitral (valve) prolapse (principal); R60.0 Localized edema; I34.0 Nonrheumatic mitral (valve) insufficiency; I77.810 Thoracic aortic ectasia
CPT/HCPCS: 93306

== ENCOUNTER 2021-07-05 16:56 | Outpatient (REF) | payer MEDICARE, OTHER, SELFPAY ==
[2021-07-05 16:00] LABS: Anion Gap 5.7 mmol/L (3-11); BUN 20 mg/dL (7-18); CO2 29.3 mmol/L (21.0-32.0); CREATININE 1.1 mg/dL (0.70-1.30); Calcium 9.9 mg/dL (8.5-10.1); Chloride 108 mmol/L (98-107); Glucose 89 mg/dL (74-106); Potassium 4.8 mmol/L (3.5-5.1); Sodium 143 mmol/L (136-145)
== END 2021-07-05 16:57 | disposition home or self-care (01) ==
LOC: NCHCN 16:56
PROVIDERS: PCP Nurse Practitioner Family; Visit Provider Nurse Practitioner Family
DX: R53.83 Other fatigue (principal); N18.1 Chronic kidney disease, stage 1; I10 Essential (primary) hypertension
CPT/HCPCS: 80048

== ENCOUNTER 2021-12-14 18:46 | Outpatient (REF) | payer MEDICARE, OTHER, SELFPAY ==
[2021-12-14 21:48] LABS: ALT 21 U/L (16-63); AST 13 U/L (15-37); Albumin 3.7 g/dL (3.4-5.0); Alkaline Phosphatase 78 U/L (46-116); Anion Gap 7.4 mmol/L (3-11); BUN 25 mg/dL (7-18); Bilirubin, Total 1.4 mg/dL (0.2-1.0); CO2 27.6 mmol/L (21.0-32.0); CREATININE 1.2 mg/dL (0.70-1.30); Calcium 9.6 mg/dL (8.5-10.1); Chloride 108 mmol/L (98-107); Glucose 94 mg/dL (74-106); Magnesium 2.4 mg/dL (1.8-2.4); Potassium 4.4 mmol/L (3.5-5.1); Sodium 143 mmol/L (136-145); Total Protein 6.9 g/dL (6.4-8.2)
[2021-12-14 22:37] LABS: Vitamin B12 > 2000 pg/mL (193-986)
[2021-12-15 18:39] LABS: PSA, Screening 0.8 ng/mL (<=6.5)
== END 2021-12-14 18:47 | disposition home or self-care (01) ==
LOC: NCHCN 18:46
PROVIDERS: PCP Nurse Practitioner Family; Visit Provider Nurse Practitioner Family
DX: R42 Dizziness and giddiness (principal); I10 Essential (primary) hypertension; N18.1 Chronic kidney disease, stage 1; R53.83 Other fatigue; I25.10 Atherosclerotic heart disease of native coronary artery without angina pectoris; K22.70 Barrett's esophagus without dysplasia; N40.0 Benign prostatic hyperplasia without lower urinary tract symptoms; Z12.5 Encounter for screening for malignant neoplasm of prostate
CPT/HCPCS: 80053; 84153; 82607; 83735

== ENCOUNTER → 2021-12-28 11:00 | Outpatient (BNVA) | payer MEDICARE, OTHER, SELFPAY | PROVIDERS: PCP Nurse Practitioner Family; Referring Provider Nurse Practitioner Family; Visit Provider Surgery | DX: R13.10 Dysphagia, unspecified (principal); K22.70 Barrett's esophagus without dysplasia | CPT/HCPCS: 99202; 99213 ==

== ENCOUNTER → 2022-02-02 01:18 | Outpatient (CLI) | payer MEDICARE, OTHER, SELFPAY ==
--- NOTE | 2022-02-02 10:30 | DI.US_ITS ---
APPROVED REPORT EXAM: Comprehensive 2D, Doppler, and color-flow Echocardiogram Patient Location: Out-Patient Kitchen Utility Associate: Coreen Byrd RDCS (AE) Indications: Ascending aorta dilation,Mitral valve prolapse Other Information Study Quality: Adequate Conclusion Normal left ventricular wall thickness and chamber size. Estimated ejection fraction is 60%. Wall m otion is normal Normal right ventricular size and systolic function Both atria are normal in size The aortic valve is trileaflet with mild regurgitation Normal mitral valve with moderate regurgitation Normal tricuspid valve with trace to mild regurgitation. Estimated right ventricular systolic pressu re is 25 mmHg Dilated ascending aorta measuring 4.04 cm Wall motion Left Ventricle The left ventricle is normal size. The left ventricular systolic function is normal. The left ventric ular ejection fraction is within the normal range. There is normal left ventricular wall thickness. T here is normal LV segmental wall motion. There is no ventricular septal defect visualized. LVEF is 60 %. Right Ventricle The right ventricle is normal size. The right ventricular systolic function is normal. The RVSP is 24 .6mmHg. Atria The left atrium size is normal. The right atrium size is normal. The interatrial septum is intact wit h no evidence for an atrial septal defect. Aortic Valve The aortic valve is normal in structure. Aortic valve is trileaflet. There is no aortic valvular sten osis. Mild aortic regurgitation. Mitral Valve The mitral valve is normal in structure. No evidence of mitral valve stenosis. Moderate mitral regurg itation. Mitral regurgitation jet is eccentrically directed. Tricuspid Valve The tricuspid valve is normal in structure. There is no tricuspid valve stenosis. Trace to mild tricu spid regurgitation. Pulmonic Valve The pulmonary valve is normal in structure. There is no pulmonic valvular stenosis. Trace pulmonic re gurgitation. Great Vessels The aortic root is normal in size. The ascending aorta is moderately dilated.4.04 cm Aortic arch is n ot well visualized. IVC is normal in size and collapses >50% with inspiration. Pericardium There is no pericardial effusion. 2D Dimensions IVSD d PLAX 1.03 cm M: 0.6-1.2 LV Vol A2C d MOD 74.1 mL LVPW d PLAX 1.02 cm M: 0.6 - 1.2 LV Vol A4C d MOD 97.2 mL LVID d PLAX 4.80 cm M: 4.2 - 5.8 LA vol/ BSA A2C s A-L 19.8 mL/m2 LVDs 3.25 cm M: 2.5 - 4.0 LA vol/ BSA A4C s A-L 23.6 mL/m2 Ao Root d 3.41 cm M: 3.1 - 3.7 LA Vol/ BSA Biplane s A-L 24.6 mL/m2 RA Area A4C 12.34 cm2 LA Area A4C s MOD 18.08 cm2 RA Vol/ BSA A4C s A-L 12.3 mL/m2 LA Area A2C s MOD 14.56 cm2 Ao Asc Diam d 4.04 cm M: 2.6 - 3.4 LV EF A4C MOD 62.4 % LV EF Teichholz 59.8 % LV EF A2C MOD 60.8 % LVEF (Strange's) 60.95 % M: 52 - 72 LV EF Biplane MOD 61.0 % LV Volume 62.32 mL M: 62 - 150 SV 52.35 mL LV Volume Index 28.19 mL/m2 M: 34 - 74 SV Index 23.63 mL/m2 LV Vol Biplane MOD 85.9 mL FS 31.85 % M-Mode TAPSE 1.80 cm (M/F) >1.7 LV Diastology MV E' medial 0.062 (>0.07 m/s) E/A Ratio 0.5 LV E/e MED 6.85 (<14) MV E Vmax 0.43 (0.4-1.3 m/s) MV E' lateral 0.088 (>0.1 m/s) MV A Vmax 0.80 (0.4-1.3 m/s) LV E/e LAT 4.80 (<14) MV E/A Ratio 0.51 MV E/E' medial 6.88 MV E/E' lateral 4.84 Aortic Valve LVOT Area 3.51 cm2 AoV Area Vmax 2.94 cm2 LVOT Vmax 1.00 m/s AoV Area/ BSA (Vmax) 1.33 cm2/m2 LVOT Mean Franck. 0.60 m/s YEE Mean Franck. 2.45 cm2 LVOT Peak Grad 4.0 mmHg YEE Mean Franck. Index 1.10 cm2/m2 LVOT Mean Grad 1.8 mmHg LVOT VTI 0.155 m LVOT Diam s 2.10 cm AoV Vmax 1.20 m/s Velocity Ratio 0.83 AoV Mean Franck. 0.87 m/s AoV Peak Grad 5.7 mmHg LVOT SV 54.37 mL AoV Mean Grad 3.2 mmHg AoV VTI 0.204 m AoV Area VTI 2.66 cm2 AoV Area/ BSA (VTI) 1.20 cm/m2 Mitral Valve MV DT 575 (160-240 msec) MV PHT 167 msec MV Area PHT 1.32 cm2 MV VTI 0.219 m MV Area VTI 2.48 (4.0-6.0 cm2) Pulmonary Valve PV Vmax 0.84 (0.5-1.5 m/s) RVOT Peak Gr. 1.11 mmHg PV Peak Grad 2.8 mmHg RVOT Mean Gr. 0.50 mmHg PV Mean Grad 1.5 mmHg RVOT VTI 0.099 m PV VTI 0.150 m RVOT Vmax 0.53 m/s Tricuspid Valve TR Peak Grad 21.5 mmHg TR Vmax 2.32 m/s RA Pressure 3.00 mmHg RVSP (TR) 24.6 mmHg
== END ==
PROVIDERS: PCP Nurse Practitioner Family; Visit Provider Nurse Practitioner Family
DX: I77.810 Thoracic aortic ectasia (principal)
CPT/HCPCS: 93306

== ENCOUNTER 2022-02-07 03:19 | Outpatient (CLI) | payer MEDICARE, OTHER, SELFPAY ==
[2022-02-07 11:28] LABS: Source Nasal/Nares
[2022-02-07 14:01] LABS: COVID-19 PCR Negative (Negative)
== END 2022-02-07 03:20 | disposition home or self-care (01) ==
PROVIDERS: PCP Nurse Practitioner Family; Visit Provider Surgery
DX: Z20.822 Contact with and (suspected) exposure to COVID-19 (principal); Z01.818 Encounter for other preprocedural examination
CPT/HCPCS: 87635; U0005

== ENCOUNTER 2022-02-09 06:28 | Day surgery (SDC) | payer MEDICARE, OTHER, SELFPAY ==
--- NOTE | 2022-02-09 06:12 | W.ANESPRE ---
General Info Date of Service Date Performed: 02/09/22 Height: 6 ft 0.5 in Weight: 91.257 kg Body Mass Index (BMI): 26.9 Surgical Procedure: Operation Date: 02/09/22 07:35 Proposed Procedure Side Surgeon p Gastroscopy Melina Stack MD Meds Allergies and Home Medications Allergies Allergy/AdvReac Type Severity Reaction Status Date / Time metoprolol AdvReac Intermediate per pcp Verified 02/09/22 06:46 list hydrochlorothiazide AdvReac Mild per pcp Verified 02/09/22 06:46 list Beta-Blockers AdvReac Other (See Verified 02/09/22 06:46 (Beta-Adrenergic Bloc Comment) lactose AdvReac Verified 02/09/22 06:46 Home Medication Medication Instructions Recorded amlodipine 10 mg tablet 10 mg PO HS 07/11/16 clonazepam 0.5 mg tablet 0.5 mg PO HS 07/11/16 famotidine 20 mg tablet 20 mg PO HS 07/11/16 lisinopril 20 mg tablet 40 mg PO DAILY AM 07/11/16 omega-3 fatty acids 300 mg capsule 300 mg PO DAILY AM 07/11/16 (Fish Oil) potassium chloride 10 mEq 20 meq PO DAILY AM 07/11/16 tablet,extended release atorvastatin 20 mg tablet 20 mg PO QHS #30 tabs 04/16/19 clopidogrel 75 mg tablet (Plavix) 75 mg PO DAILY #30 tabs 04/16/19 melatonin 3 mg tablet 5 mg PO HS PRN 04/24/19 acetaminophen 325 mg tablet 650 mg PO BID 04/29/19 acetaminophen 500 mg tablet 1,500 mg PO DAILY PRN 02/08/22 Current Visit Medications: Current Medications Generic Name Dose Route Start Last Admin Trade Name Freq PRN Reason Stop Dose Admin Ringer's Solution 1,000 mls @ 80 mls/hr 02/09/22 06:00 IV 03/10/22 23:59 INFUSION DILLAN IV Miscellaneous Supplies 1 each 02/09/22 06:00 Iv Access IV 03/10/22 23:59 DIRECTED DILLAN Sodium Chloride 0 ml 02/09/22 06:00 Normal Saline Flush 10 Ml Syr IV 03/10/22 23:59 PRN PRN Sodium Chloride 0 ml 02/09/22 06:00 Normal Saline 10 Ml Vial IJ 03/10/22 23:59 DIRECTED PRN Sterile Water 0 ml 02/09/22 06:00 Water,Injection,Sterile 10 Ml Vial IJ 03/10/22 23:59 DIRECTED PRN PFSH Active Problems Active Problems: Problem Status Onset Code CVA (cerebral vascular accident) I63.9 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 denies this Enlarged prostate Essential hypertension Fatigue GERD (gastroesophageal reflux disease) Gout Hx of closed fracture R ankle, sternum Hyperlipidemia Insomnia Memory loss due to medical condition Osteoarthritis Right hand weakness Medical History Comments:: Pt. states his stroke and cardiac hx has not affected his functional capacity. Surgical History Surgical History History of decompression of ulnar nerve left Hx of arthroscopic knee surgery left Hx of cataract extraction Hx of cholecystectomy Hx of colonoscopy Hx of esophagogastroduodenoscopy Tobacco Smoking/Tobacco Use Status: Never Alcohol Alcohol Intake: current Alcohol intake frequency: holidays/special occasions only Substance Use Substance use: Never Substance use type: does not use Details: alcohol: t-14 Vital Signs and Lab Results Vital Signs Most Recent Vital Signs in EMR: Temp Pulse Resp BP Pulse Ox 36.3 C L 68 16 150/95 H 98 02/09/22 06:41 02/09/22 06:41 02/09/22 06:41 02/09/22 06:41 02/09/22 06:41 Lab Results Blood Type / Crossmatch: No Data to Display Complete Blood Count: No Data to Display Complete Metabolic Panel: No Data to Display Liver Function Panel: No Data to Display Coagulation Panel: No Data to Display Cardiac Panel: No Data to Display Arterial Blood Gas: No Data to Display Venous Blood Gas: No Data to Display Pancreas Panel: No Data to Display Thyroid Panel: No Data to Display Infectious Disease: Coronavirus (COVID-19)(PCR) Negative (Negative) 02/07/22 11:00 Coronavirus 2019 Source Nasal/Nares 02/07/22 11:00 Blood Cultures: No Data to Display Toxicology Panel: No Data to Display Imaging and Studies Imaging and Studies Study information below may be from another EMR and interpreted by another provider. Please see original notes in EMR for more complete details. Echocardiogram Summary: 02/02/22: LVEF 60%. moderate MR. trace - mild TR. RVSP 25mmhg. ascending Ao 4.04 mm Anesthesia Assessment and Plan Anesthesia History Personal History: No History of Anesthesia Complications Family History: No Family History of Anesthesia Complications Exercise Tolerance Exercise Tolerance: Metabolic Equivalents>4 Cardiac & Pulmonary Exam Cardiac Exam: Normal S1/S2 Heart Sounds Pulmonary Exam: Clear Bilateral Breath Sounds Implantable Cardiac Device Does patient have a Pacemaker or an ICD?: No Airway Exam Known Difficult Airway: No Mallampati Class: 2 Mouth Opening: Normal (> 3cm) Thyromental Distance: Greater than 3 cm Neck Range of Motion: Full ROM Neck Circumference: Normal Teeth Condition: Normal Dentition and Removable Dentures/Plates Upper ASA Classification ASA Score: ASA 3 Emergency Case?: No NPO Status NPO Status: NPO Clears >2 hours, Solids >8 hours Anesthesia Plan Resuscitation Status: Full Code Anesthesia Technique: General Anesthesia Airway Planned: Natural Airway Monitors Used: Standard Monitors Preoperative Comments:: 81 yo male with history of barretts for EGD Sig PMHx: COVID + in november, HTN (amlodipine, lisinopril), barretts/gerd (omeprazole, famot), CVA (clopidogrel), expressive aphasia. ECHO: mod MR, EF 60%. Previous Anes: - KIM with topical lido, prop 50/gtt at 75.
--- NOTE | 2022-02-09 06:19 | W.PREOPHP ---
Assessment and Plan Assessment and plan (1) Barretts esophagus: Status: Acute Assessment and plan: Mr. Garcia is an 81-year-old gentleman with a history of Morgan's esophagitis diagnosed 5 years ago who is here today to discuss another upper endoscopy.? He did have some dysphagia but that has resolved as long as he drinks a couple of sips of water prior to starting to eat.? We discussed the procedure in detail as well as the risks and benefits and he wished to proceed.? He does have an echo ordered so we will wait until after that to schedule his procedure.? He was also COVID-positive about 3 weeks ago. Risks, benefits and complications have been reviewed. Complications include but are not limited to bleeding, pain, perforation, sore throat, aspiration, and adverse reaction to the medications.? Questions were entertained and answered to their satisfaction and they wished to proceed. No guarantees were given or implied. EGD under sedation (2) Dysphagia: Status: Acute History of Present Illness Narrative: Mr. Garcia is a pleasant 81-year-old gentleman who was diagnosed with Morgan's esophagitis about 5 years ago in [place].? He had a yearly doctors appointment and mention that he was having some intermittent dysphagia for the last year and a half.? The patient tells me that if he takes a couple of sips of water before eating he does not have any issues.? He does take Pepcid 40 mg at bedside and will take another 40 mg if he is going to eat something that is a heartburn trigger for him like tomato sauce.? He has no heartburn or reflux symptoms as long as he is taking his Pepcid at bedtime.? It was recommended to him that he take a PPI when he was diagnosed with Morgan's but the patient did some research and found 2 papers that discussed the link of PPI to Alzheimer's and therefore he does not want to take PPI. His past medical history is significant for a CVA about 2-1/2 years ago.? He seems to have recovered fully from that.? He is on Plavix daily.? He has some high blood pressure which is well controlled on lisinopril.? Of note the patient did have COVID approximately 3 weeks ago.? His symptoms were mild.? He is vaccinated and boosted.? We will make sure that his procedure is 4 weeks after his COVID diagnosis.? He also tells me that he has another echocardiogram scheduled for February 01.? His last echo was in 2019.? Echo results were reviewed. ECHO: Conclusion Left Ventricle : The left ventricle is normal size. The left ventricular ejection fraction is within the normal range. There is normal left ventricular wall thickness. There is normal LV segmental wall motion. The left ventricular diastolic function is normal. LVEF is 60%. Right Ventricle : The right ventricle is normal size. The right ventricular systolic function is normal. The RVSP is 22.6 mmHg. Atria : The left atrium size is normal. The right atrium size is normal. Mitral Valve : Mild mitral annular calcification. Mild to moderate mitral regurgitation. Mitral regurgitation jet is eccentrically directed. No evidence of mitral valve stenosis. Great Vessels : The aortic root is normal in size. The ascending aorta is moderately dilated. IVC is normal in size and collapses >50% with inspiration. Compared to study from 04/16/2019, there is no significant change. He denies chest pain or palpitations.? He denies shortness of breath with activity. Anesthesia: general (without airway) Previous surgical intolerances: No Previous surgical complications: No Pulmonary risk factors: age > 60 Date of surgery: TBD Planned procedure: Yes Sleep apnea risks: No Can climb one flight of stairs (12-13 steps) in less than 30 seconds without stopping and without symptoms: Yes The surgery proposed for this patient is: mod risk Active cardiac conditions: No Active risk factors: yes ASA (acetylsalicylic acid): on Plavix Beta blockers: not used Review of Systems All systems reviewed & are unremarkable except as noted in HPI and below PFSH All Active Problems CVA (cerebral vascular accident) (Chronic) 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 denies this Enlarged prostate Essential hypertension Fatigue GERD (gastroesophageal reflux disease) Gout Hx of closed fracture R ankle, sternum Hyperlipidemia Insomnia Memory loss due to medical condition Osteoarthritis Right hand weakness Surgical History History of decompression of ulnar nerve left Hx of arthroscopic knee surgery left Hx of cataract extraction Hx of cholecystectomy Hx of colonoscopy Hx of esophagogastroduodenoscopy Family History Father Heart disease Social History Smoking/Tobacco Use Status: Never Smoking risk assessment performed?: Yes Alcohol Intake: current Alcohol Intake frequency: holidays/special occasions only Drug use: Never Substance use type: does not use Details: alcohol: t-14 Household members: spouse current occupation: Retired. What type of physical activity do you participate in: none, independent ambulation and normal ROM and activity Do you feel safe at home: Yes Do you feel safe in your relationship?: Yes Meds Allergies and Home Medications Allergies Allergy/AdvReac Type Severity Reaction Status Date / Time metoprolol AdvReac Intermediate per pcp Verified 02/09/22 06:46 list hydrochlorothiazide AdvReac Mild per pcp Verified 02/09/22 06:46 list Beta-Blockers AdvReac Other (See Verified 02/09/22 06:46 (Beta-Adrenergic Bloc Comment) lactose AdvReac Verified 02/09/22 06:46 Home Medications Medication Instructions Recorded Confirmed Type amlodipine 10 mg tablet 10 mg PO HS 07/11/16 02/09/22 History clonazepam 0.5 mg tablet 0.5 mg PO HS 07/11/16 02/09/22 History famotidine 20 mg tablet 20 mg PO HS 07/11/16 02/09/22 History lisinopril 20 mg tablet 40 mg PO DAILY AM 07/11/16 02/09/22 History omega-3 fatty acids 300 mg capsule 300 mg PO DAILY AM 07/11/16 02/09/22 History (Fish Oil) potassium chloride 10 mEq 20 meq PO DAILY AM 07/11/16 02/09/22 History tablet,extended release atorvastatin 20 mg tablet 20 mg PO QHS #30 tabs 04/16/19 02/09/22 Rx clopidogrel 75 mg tablet (Plavix) 75 mg PO DAILY #30 tabs 04/16/19 02/09/22 Rx melatonin 3 mg tablet 5 mg PO HS PRN 04/24/19 02/09/22 History acetaminophen 325 mg tablet 650 mg PO BID 04/29/19 02/09/22 History acetaminophen 500 mg tablet 1,500 mg PO DAILY PRN 02/08/22 02/09/22 History Exam Const General: comfortable and no acute distress HENMT Head: normocephalic and atraumatic Resp Effort & Inspection: normal respiratory effort Auscultation: clear to auscultation bilaterally Cardio Rate: regular rate Rhythm: regular rhythm
--- NOTE | 2022-02-09 06:21 | ENDO_ITS ---
Date of service: 02/09/22 Time of Service: 07:49 Endoscopy Report DATE OF PROCEDURE: 02/09/22 PRE-OP DIAGNOSIS: Dysphagia and Hx of Morgan's PROCEDURE: EGD with biopsies SURGEON: Melina Stack ANESTHESIA TYPE: General:No Airway ESTIMATED BLOOD LOSS: 3 PATHOLOGY: other (Antrum bx, GE junction and distal esophagus bx) COMPLICATIONS: None DISPOSITION: same day INDICATIONS: Mr. Garcia is an 81-year-old gentleman with a history of Morgan's esophagitis diagnosed 5 years ago who is here today to discuss another upper endoscopy.? He did have some dysphagia but that has resolved as long as he drinks a couple of sips of water prior to starting to eat.? We discussed the procedure in detail as well as the risks and benefits and he wished to proceed.? He does have an echo ordered so we will wait until after that to schedule his procedure.? He was also COVID-positive about 3 weeks ago. Risks, benefits and complications have been reviewed. Complications include but are not limited to bleeding, pain, perforation, sore throat, aspiration, and adverse reaction to the medications.? Questions were entertained and answered to their satisfaction and they wished to proceed. No guarantees were given or implied. EGD under sedation FINDINGS: Inflammation of the antrum Inflammation of the esophagus PROCEDURE DESCRIPTION: After informed consent was obtained the patient was take to the procedure room and placed in a supine position. Monitors were applied and a time out was done. The patients name, date of , procedure type, allergies to medications and metal in their body was reviewed. A bite block was placed and the patient was sedated. Once sedated and comfortable the gastroscope was advanced through the oropharynx which was grossly normal into the esophagus. The proximal and mid- esophagus were normal. In the distal esophagus there was inflammation and Morgan's noted. The scope was advanced into the stomach and through the pylorus into the 3rd portion of the duodenum. The duodenum was noted to be normal. The scope was retracted back into the stomach and biopsies were done to rule out H. pylori. There were no ulcers. The scope was retroflexed. The cardia and fundus were noted to be normal. There was a hiatal hernia noted. The scope was retracted back into the esophagus and biopsies were done of the GE junction at 35 cm and the distal esophagus at 28 and 29 cm for surveillance of known Morgan's. The Z line was regular, there was some scarring noted. The GE junction was at 35 cm. The scope was removed and the patient was woken up and taken back to [facility] in stable condition.
--- NOTE | 2022-02-09 06:22 | W.PM.DSUDISC ---
Discharge Plan Disposition Patient Disposition: HOME Condition: Good Discharge Details Reason For Visit: Morgan's and dysphagia Attending Provider: Melina Stack Primary Care Provider: Lori Carey Home Meds and New Rx's Prescriptions: Continued melatonin 3 mg Tablet 5 mg PO HS PRN lisinopril 20 MG tablet 40 mg PO DAILY AM Rx Instructions: 04/15/19 recently doubled and HCTZ was discontinued clonazepam 0.5 MG tablet 0.5 mg PO HS potassium chloride 10 MEQ tablet extended release 20 meq PO DAILY AM famotidine 20 MG tablet 20 mg PO HS Label Comments: pt. states he quit when he started pantoprazole,states he will go back on amlodipine 10 MG tablet 10 mg PO HS Fish Oil 300 MG capsule 300 mg PO DAILY AM clopidogrel [Plavix] 75 mg Tablet 75 mg PO DAILY Qty: 30 0RF atorvastatin 20 mg tablet 20 mg PO QHS Qty: 30 0RF acetaminophen 325 mg Tablet 650 mg PO BID acetaminophen 500 mg Tablet 1,500 mg PO DAILY PRN Discharge Instructions Instructions: Morgan Esophagus (DC) Additional Instructions: Findings: Inflammation of the stomach and esopahgus Morgan's Follow up: I will send a letter with recommendations once I have the results Medications: Please wait to take your plavix until tomorrow Please call if you develop: fevers >101.5 Nausea or Vomiting Abdominal pain that is not transient Rectal bleeding that is more then a tbsp A hard abdomen and inability to pass gas DAY SURGERY UNIT POST ENDOSCOPY INSTRUCTIONS Instructions for everyone who is given Anesthesia: For your safety, please do the following for the next 24 Hours: a. Do not drive or operate dangerous equipment b. Do not drink alcohol beverages or use any recreational drugs for the first 24 hours or while taking pain medications. The medications in your body may have a reaction that can be dangerous. c. Do not make any important decisions or sign any important papers 1. Generally there are no restrictions on your activity after a day or so has gone by, but you may feel a bit fatigued for a few days. 2. After you arrive home you may have a light meal and return to a normal diet as you can tolerate it without feeling sick to your stomach. 3. After surgery, you may feel pain or discomfort. This should be only transient, but if it persists please contact your doctor. 4. If there are any questions regarding the findings of your procedure, please feel free to contact your doctor. 6. If you are unable to contact your doctor with a problem, contact the hospital at [phone]. 7. Continue all your regular medications unless directed otherwise. I understand the above instructions and have no questions. Signature of Patient or Responsible Adult Escort Date/Time Name of Responsible Adult Escort Signature of Nurse Date/Time Activity:: Activity as Tolerated Diet:: As Tolerated Discharge Orders Discharge Orders: Discharge Order (Routine); Ordered 02/09/22 Ordered By: Melina Stack DS: Diagnosis Discharge Diagnosis (1) Barretts esophagus: Status: Acute (2) Dysphagia: Status: Acute
[2022-02-09 06:41] VITALS: BP 150/95; PULSE 68; RESP 16; TEMP 36.3; O2SAT 98
[2022-02-09 07:01] VITALS: BMI 26.9
[2022-02-09] MEDS: Lactated Ringers 1,000 ML 80 ML IV (07:06)
--- NOTE | 2022-02-09 07:33 | ESO_PTH ---
PATIENT: Davonte Garcia LOC: LIO U#:[id number] AGE/SX: 81/M ROOM: RE02/09/[address]: Melina Stack MD : [id number] BED: DIS: 02/09/2022 SPEC #: [id number] RECD: 02/09/22 12:38 STATUS: ALYCIA REAde #: [id number] DARLINE: 02/09/22 07:[address]: Melina Stack DEPT: Surgical Specimen RECD BY: Sherri Winter ENTERED: 02/09/22 12:40 SP TYPE: Darrick DUFF DR: Lori Carey Tissues: 1 - STOMACH BIOPSY 2 - ESOPHAGUS BIOPSY 3 - ESOPHAGUS BIOPSY 4 - ESOPHAGUS BIOPSY Procedures: GROSS AND MICRO LEVEL 4 SPECIAL STAIN 1 Comments: [id number]
[2022-02-09 07:47] VITALS: BP 127/78; PULSE 67; RESP 16; TEMP 36.3; O2SAT 95
--- NOTE | 2022-02-09 07:55 | W.ANESPOSTOP ---
Postoperative Evaluation Date, Time and Location Date Performed: 02/09/22 Time Performed: 07:55 Patient Location: Day Surgery Unit Vital Signs Most Recent Imported Vital Signs: Most Recent Vital Signs Temp Pulse Resp BP Pulse Ox 36.3 C L 67 16 127/78 95 02/09/22 07:47 02/09/22 07:47 02/09/22 07:47 02/09/22 07:47 02/09/22 07:47 Pain Score Most Recent Pain Score: Most Recent Pain Score Pain Level 0 02/09/22 07:47 Assessment Mental Status: Awake (Alert & Oriented to Patient Baseline) Airway and Respiratory Function: Patent airway with normal (patient baseline) respiratory exam Cardiovascular Function: Hemodynamically Stable Hydration Status: Adequately Hydrated Nausea & Vomiting: No Nausea or Vomiting Pain: Pt. Denies Any Pain Peripheral Nerve Block: Patient did not receive a nerve block
[2022-02-09 08:18] VITALS: BP 127/87; PULSE 61; RESP 16; TEMP 36.2; O2SAT 96
== END 2022-02-09 08:51 | disposition home or self-care (01) ==
PROVIDERS: PCP Nurse Practitioner Family; Visit Provider Surgery
PROC: 0DJ68ZZ Inspection of Stomach, Via Natural or Artificial Opening Endoscopic (ICD-10-PCS; CPT 43235; principal; 2022-02-09 07:30)
DX: K22.70 Barrett's esophagus without dysplasia (principal); K20.90 Esophagitis, unspecified without bleeding; K29.70 Gastritis, unspecified, without bleeding; K22.89 Other specified disease of esophagus
CPT/HCPCS: 43239; 88305; 88312; J2704

== ENCOUNTER 2022-07-01 08:21 | Outpatient (CLI) | payer MEDICARE, OTHER, SELFPAY ==
--- NOTE | 2022-07-01 08:21 | RT.EKG_ITS ---
APPROVED REPORT Exam: Resting ECG Reason for Exam: palpitations Patient Location: O HR:75 bpm ECG Measurements Heart Rate 75 AXIS UT 184 P 63 QRSd 89 QRS -10 QT 382 T 39 QTc 427 Conclusion Sinus rhythm...normal P axis, V-rate 50- 99 Multiform ventricular premature complexes...short R-R, variable morphology Borderline low voltage, extremity leads...all extremity leads <0.6mV LVH by voltage...R >2.60mV in V5 or V6
== END 2022-07-01 08:22 | disposition home or self-care (01) ==
LOC: DI.CARD 08:22
PROVIDERS: PCP Nurse Practitioner Family; Visit Provider Internal Medicine Cardiovascular Disease
DX: R00.2 Palpitations (principal); R94.31 Abnormal electrocardiogram [ECG] [EKG]
CPT/HCPCS: 93010

== ENCOUNTER → 2022-07-01 13:40 | Outpatient (BNVA) | payer MEDICARE, OTHER, SELFPAY | PROVIDERS: PCP Nurse Practitioner Family; Referring Provider Nurse Practitioner Family; Visit Provider Internal Medicine Cardiovascular Disease | DX: R00.2 Palpitations (principal); I25.10 Atherosclerotic heart disease of native coronary artery without angina pectoris; R53.83 Other fatigue; I77.810 Thoracic aortic ectasia; I10 Essential (primary) hypertension; I63.412 Cerebral infarction due to embolism of left middle cerebral artery; I49.3 Ventricular premature depolarization | CPT/HCPCS: 93005; 99214 ==

== ENCOUNTER → 2022-07-12 01:50 | Outpatient (CLI) | payer MEDICARE, OTHER, SELFPAY ==
--- NOTE | 2022-07-12 06:45 | DI.NM_ITS ---
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 Nuclear Acquisition: Rest Tc-99m/Stress Tc-99m 1 day Rest Isotope: Tc-99m Sestamibi. Dose: 11.0 Date: 07/12/2022 Injection Time: 0930 Stress Isotope: Tc-99m Sestamibi. Dose: 33.0 Date: 07/12/2022 Injection Time: 1120 HR Resting HR Supine: 57 bpm Max Heart Rate (APMHR): 140.772612 bpm Resting HR Standin bpm Target HR (85% APMHR): 119.220827 bpm Max HR Achieved: 104 bpm % of APMHR: 74.29 Recovery HR: 79 bpm BP Resting BP Supine: 162/88 mmHg Resting BP Standin/74 mmHg Max BP: 162/88 mmHg Recovery BP: 148/80 mmHg ECG Resting ECG: Sinus Bradycardia, 1st degree AV block Ectopy: PVCs Stress ECG: Sinus Tachycardia ST Change: No significant ST segment changes noted Arrhythmia: PACs, multifocal PVCs Recovery ECG: Sinus Rhythm Recovery ST Change: No significant ST segment changes noted Recovery Arrhythmia: PACs, multifocal PVCs, PVC couplet Clinical Stress Symptoms: Dyspnea Exercise duration: 0 min55 sec Rate Pressure Product: 15836 Stress ECG Conclusion 1. Resting electrocardiogram showed first-degree AV block 2. Patient underwent testing using combination of low-level exercise and regadenoson 3. Peak heart rate achieved was 79% of predicted for age 4. Electrocardiographic portion of the test was nondiagnostic due to inadequate heart rate 5. See MPI report Stress Test Summary STAGE Time (mins) Speed (mph) Grade (%) HR BP SpO2 SYMPTOMS METS Supine 57 162/88 Standing 69 132/74 1 min post Lexiscan injection 90 162/80 3 min post Lexiscan injection 98 122/68 6 min post Lexiscan injection 79 148/80 Patient attempted Kuldip protocol. Treadmill was stopped after 55 seconds by staff due to unsteady gai t and concern for patient safety. Lexiscan given while patient walked at a speed of 1.2 mph and 0% gr kevin. MPI Conclusion Myocardial perfusion is normal. There is no ischemia or evidence of prior infarction EF 52%, normal wall motion Radiologist Interpretation Radiologist Interpretation by: Jose Xavier MD Interpretation Date/Time: 07/12/2022 16:59:19
[2022-07-12] MEDS: Regadenoson 0.4 MG/5 ML SYR IVP (11:27)
== END ==
PROVIDERS: PCP Nurse Practitioner Family; Visit Provider Internal Medicine Cardiovascular Disease
DX: I25.10 Atherosclerotic heart disease of native coronary artery without angina pectoris (principal)
CPT/HCPCS: 78452; 93016; 93018; 93017; J2785

== ENCOUNTER 2022-11-23 13:14 | Outpatient (REF) | payer MEDICARE, OTHER, SELFPAY ==
[2022-11-23 13:38] LABS: Bilirubin Negative (Negative); Blood Negative (Negative); Clarity Clear (Clear); Glucose Negative (Negative); Ketones Negative (Negative); Leukocyte Esterase Negative (Negative); Nitrite Negative (Negative); Urobilinogen 0.2 mg/dL (Up to 0.2); pH 6.5 (5-8)
[2022-11-23 14:46] LABS: ALT 25 U/L (16-63); AST 17 U/L (15-37); Albumin 3.4 g/dL (3.4-5.0); Alkaline Phosphatase 66 U/L (46-116); Anion Gap 6.2 mmol/L (3-11); BUN 15 mg/dL (7-18); Bilirubin, Total 1.3 mg/dL (0.2-1.0); CO2 28.8 mmol/L (21.0-32.0); CREATININE 1.2 mg/dL (0.70-1.30); Calcium 9.6 mg/dL (8.5-10.1); Chloride 108 mmol/L (98-107); Estimated GFR 61.13 (mL/min/1.73m2); Glucose 86 mg/dL (74-106); Potassium 4.3 mmol/L (3.5-5.1); Sodium 143 mmol/L (136-145); Total Protein 6.5 g/dL (6.4-8.2)
== END 2022-11-23 13:15 | disposition home or self-care (01) ==
LOC: NCHCN 13:14
PROVIDERS: PCP Nurse Practitioner Family; Visit Provider Nurse Practitioner Family
DX: N18.1 Chronic kidney disease, stage 1 (principal); I10 Essential (primary) hypertension; E80.6 Other disorders of bilirubin metabolism
CPT/HCPCS: 80053; 81003

== ENCOUNTER 2023-01-24 11:13 | Outpatient (REF) | payer MEDICARE, OTHER, SELFPAY ==
[2023-01-24 16:25] LABS: Calculated LDL 53 mg/dL (<100); Cholesterol 134 mg/dL (<200); HDL Cholesterol 65 mg/dL (40-60); Triglyceride 81 mg/dL (<150); Vitamin B12 1791 pg/mL (193-986)
[2023-01-24 22:15] LABS: PSA, Screening 0.7 ng/mL (<=6.5)
== END 2023-01-24 11:14 | disposition home or self-care (01) ==
LOC: NCHCN 11:13
PROVIDERS: PCP Nurse Practitioner Family; Visit Provider Nurse Practitioner Family
DX: R42 Dizziness and giddiness (principal); N18.1 Chronic kidney disease, stage 1; I10 Essential (primary) hypertension; R53.83 Other fatigue; N40.0 Benign prostatic hyperplasia without lower urinary tract symptoms; Z12.5 Encounter for screening for malignant neoplasm of prostate; E80.6 Other disorders of bilirubin metabolism; R26.89 Other abnormalities of gait and mobility
CPT/HCPCS: 80061; 84153; 82607

== ENCOUNTER 2023-03-10 19:45 | Outpatient (REF) | payer MEDICARE, OTHER, SELFPAY ==
[2023-03-13 10:26] LABS: Lyme Ab w Rflx to Lyme Confirm Negative (Negative)
[2023-03-14 22:53] LABS: Anaplasma phagocytophilum Negative (Negative); B. miyamotoi PCR Negative (Negative); Babesia divergens/MO-1 Negative (Negative); Babesia duncani Negative (Negative); Babesia microti Negative (Negative); Ehrlichia chaffeensis Negative (Negative); Ehrlichia ewingii/canis Negative (Negative); Ehrlichia muris eauclairensis Negative (Negative)
== END 2023-03-10 19:46 | disposition home or self-care (01) ==
LOC: NCHCN 19:45
PROVIDERS: PCP Nurse Practitioner Family; Visit Provider Family Medicine
DX: M25.50 Pain in unspecified joint (principal); Z11.8 Encounter for screening for other infectious and parasitic diseases
CPT/HCPCS: 87798; 86618

== ENCOUNTER 2023-04-18 21:12 | Outpatient (REF) | payer MEDICARE, OTHER, SELFPAY ==
[2023-04-18 21:25] LABS: Abs Immature Grans 0.01 10^3/uL (0.0-0.06); Absolute Basophil Count 0.03 10^3/uL (0.0-0.2); Absolute Eosinophil Count 0.15 10^3/uL (0.0-0.7); Absolute Lymphocyte Count 1.19 10^3/uL (1.2-3.4); Absolute Neutrophil Count 3.06 10^3/uL (1.2-6.7); Basophils % 0.6; Eosinophils % 3.2; HCT 40.8 % (40.0-50.0); HGB 13.6 g/dL (13.5-17.5); Immature Grans % 0.2; Lymphocytes % 25.1; MCH 33.7 pg (27.0-33.0); MCHC 33.3 % (32.0-36.0); MCV 101 fL (80-95); MPV 10.3 fL (8.0-11.0); Monocytes % 6.3; Neutrophils % 64.6; Platelet Count 169 10^3/uL (130-400); RBC 4.04 10^6/uL (4.36-5.78); RDW-SD 48.9 fL; WBC 4.74 10^3/uL (4.4-10.8)
[2023-04-18 21:30] LABS: ALT 25 U/L (16-63); AST 15 U/L (15-37); Albumin 3.7 g/dL (3.4-5.0); Alkaline Phosphatase 65 U/L (46-116); Anion Gap 7.1 mmol/L (3-11); BUN 25 mg/dL (7-18); Bilirubin, Total 1.6 mg/dL (0.2-1.0); CO2 27.9 mmol/L (21.0-32.0); CREATININE 1.2 mg/dL (0.70-1.30); Chloride 106 mmol/L (98-107); Estimated GFR 60.75 (mL/min/1.73m2); Glucose 126 mg/dL (74-106); Potassium 4.1 mmol/L (3.5-5.1); Sodium 141 mmol/L (136-145); Total Protein 6.6 g/dL (6.4-8.2)
== END 2023-04-18 21:13 | disposition home or self-care (01) ==
LOC: NCHCN 21:12
PROVIDERS: PCP Nurse Practitioner Family; Visit Provider Nurse Practitioner Family
DX: R19.7 Diarrhea, unspecified (principal)
CPT/HCPCS: 80053; 85025

== ENCOUNTER 2023-04-25 19:05 | Outpatient (REF) | payer MEDICARE, OTHER, SELFPAY ==
[2023-04-27 18:37] LABS: Campylobacter PCR Negative (Negative); Salmonella PCR Negative (Negative); Shiga Toxin PCR Negative (Negative); Shigella/Enteroinvasive Ecoli Negative (Negative)
== END 2023-04-25 19:06 | disposition home or self-care (01) ==
LOC: LBN 19:05
PROVIDERS: PCP Nurse Practitioner Family; Visit Provider Nurse Practitioner Family
DX: R19.7 Diarrhea, unspecified (principal)
CPT/HCPCS: 87329; 87505; 87177

== ENCOUNTER → 2023-05-03 01:37 | Outpatient (CLI) | payer MEDICARE, OTHER, SELFPAY ==
--- NOTE | 2023-05-03 | DI.US_ITS ---
Exam(s) US ABDOMEN EXAM: US ABDOMEN CLINICAL HISTORY: ELEVATED BILIRUBIN, R17 TECHNIQUE: Ultrasound abdomen performed using standard protocol. COMPARISON: CT CHEST ABD PELVIS WITH CONTRAST from 07/11/2016 FINDINGS: LIVER: Limited visualization due to shadowing by bowel gas and ribs. Normal size and echogenicity. No focal lesions visible. GALLBLADDER: Status post cholecystectomy. No biliary dilatation. BILIARY SYSTEM: No intrahepatic or extrahepatic biliary ductal dilation. KIDNEYS: Kidneys are symmetric in size. Stone lower pole left kidney, nonobstructing. Cysts mid and lower pole of the left kidney. Lower pole cyst measures 5 cm cyst mid left kidney measures 3.4 cm. Findings unchanged from prior CT. No follow-up recommended. Tiny right renal cysts. No evidence of hydronephrosis. No renal mass or cyst identified. PANCREAS: Normal where visualized. SPLEEN: Not enlarged. ABDOMINAL AORTA AND IVC: Visualized portions normal caliber. ASCITES: None seen. IMPRESSION: Status post cholecystectomy. No acute abnormality. DATA REPOSITORY:
== END ==
PROVIDERS: PCP Nurse Practitioner Family; Visit Provider Nurse Practitioner Family
DX: R17 Unspecified jaundice (principal); Z98.890 Other specified postprocedural states
CPT/HCPCS: 76700

== ENCOUNTER → 2023-11-01 10:06 | Outpatient (CLI) | payer MEDICARE, OTHER, SELFPAY ==
--- NOTE | 2023-11-01 14:22 | DI.RAD_ITS ---
Exam(s) XR CHEST 2V PA LATERAL EXAM: XR CHEST 2V PA LATERAL CLINICAL HISTORY: CHEST PAIN R07.89 TECHNIQUE: 2D digital imaging was performed. Two views. COMPARISON: CT CHEST ABD PELVIS WITH CONTRAST from 07/11/2016 CR XR CHEST 2V PA LATERAL from 04/15/2019 FINDINGS: HEART: Normal size. Aorta: Tortuous. PULMONARY VASCULATURE: Normal. LUNGS: Clear. PLEURAL SPACE: No pleural effusion or pneumothorax. BONE:Flowing osteophytes along the thoracic spine. Soft tissues: Unremarkable. IMPRESSION: No acute abnormality. DATA REPOSITORY: RADIATION DOSE DELIVERED:
== END ==
PROVIDERS: PCP Nurse Practitioner Family; Visit Provider Nurse Practitioner Family
DX: R07.89 Other chest pain (principal)
CPT/HCPCS: 71046

== ENCOUNTER 2023-12-14 18:27 | Outpatient (REF) | payer MEDICARE, OTHER, SELFPAY ==
[2023-12-14 14:23] LABS: Absolute Basophil Count 0.04 10^3/uL (0.0-0.2); Absolute Eosinophil Count 0.24 10^3/uL (0.0-0.7); Absolute Lymphocyte Count 1.33 10^3/uL (1.2-3.4); Absolute Monocyte Count 0.37 10^3/uL (0.1-0.8); Absolute Neutrophil Count 1.84 10^3/uL (1.2-6.7); Eosinophils % 6.3 %; HCT 44.6 % (40.0-50.0); HGB 14.8 g/dL (13.5-17.5); Lymphocytes % 34.8 %; MCH 33.6 pg (27.0-33.0); MCHC 33.2 % (32.0-36.0); MCV 101 fL (80-95); MPV 9.8 fL (8.0-11.0); Monocytes % 9.7 %; Neutrophils % 48.2 %; Platelet Count 149 10^3/uL (130-400); RBC 4.41 10^6/uL (4.36-5.78); RDW 12.9 % (11.8-14.1); RDW-SD 48.3 fL; WBC 3.82 10^3/uL (4.4-10.8)
[2023-12-14 15:05] LABS: Vitamin B12 1561 pg/mL (193-986)
[2023-12-14 15:07] LABS: Folate > 20.0 ng/mL (8.6-20.0)
== END 2023-12-14 18:28 | disposition home or self-care (01) ==
LOC: NCHCN 18:27
PROVIDERS: PCP Nurse Practitioner Family; Visit Provider Nurse Practitioner Family
DX: D75.89 Other specified diseases of blood and blood-forming organs (principal)
CPT/HCPCS: 82607; 82746; 85025

== ENCOUNTER 2024-02-19 13:40 | Outpatient (REF) | payer MEDICARE, OTHER, SELFPAY ==
[2024-02-23 17:19] LABS: 2-OH-Ethyl-Flurazepam Negative ng/mL (Cutoff: 10); 7-NH-Clonazepam 148 ng/mL (Cutoff: 10); 7-NH-Flunitrazepam Negative ng/mL (Cutoff: 10); Alpha OH-Alprazolam Negative ng/mL (Cutoff: 10); Alpha-OH Midazolam Negative ng/mL (Cutoff: 10); Alpha-OH-Triazolam Negative ng/mL (Cutoff: 10); Alprazolam Negative ng/mL (Cutoff: 10); Benzodiazepines Interpretation Positive.; Chlordiazepoxide Negative ng/mL (Cutoff: 10); Clobazam Negative ng/mL (Cutoff: 10); Clonazepam Negative ng/mL (Cutoff: 10); Diazepam Negative ng/mL (Cutoff: 10); Flurazepam Negative ng/mL (Cutoff: 10); Lorazepam Negative ng/mL (Cutoff: 10); Midazolam Negative ng/mL (Cutoff: 10); N-Desmethylclobazam Negative ng/mL (Cutoff: 10); Prazepam Negative ng/mL (Cutoff: 10); Temazepam Negative ng/mL (Cutoff: 10); Triazolam Negative ng/mL (Cutoff: 10); Zolpidem Carboxylic acid Negative ng/mL (Cutoff: 10)
== END 2024-02-19 13:41 | disposition home or self-care (01) ==
LOC: NCHCN 13:40
PROVIDERS: PCP Nurse Practitioner Family; Visit Provider Nurse Practitioner Family
DX: F51.04 Psychophysiologic insomnia (principal)
CPT/HCPCS: 80346

== ENCOUNTER → 2024-03-13 10:51 | Outpatient (BNVA) | payer MEDICARE, OTHER, SELFPAY | PROVIDERS: PCP Nurse Practitioner Family; Referring Provider Nurse Practitioner Family; Visit Provider Psychiatry & Neurology Neurology | DX: G43.009 Migraine without aura, not intractable, without status migrainosus (principal); G89.29 Other chronic pain; G47.10 Hypersomnia, unspecified; I63.512 Cerebral infarction due to unspecified occlusion or stenosis of left middle cerebral artery; I95.1 Orthostatic hypotension | CPT/HCPCS: 99215 ==

== ENCOUNTER 2024-04-02 15:03 | Outpatient (REF) | payer MEDICARE, OTHER, SELFPAY ==
[2024-04-02 16:51] LABS: Abs Immature Grans 0.01 10^3/uL (0.0-0.06); Absolute Basophil Count 0.06 10^3/uL (0.0-0.2); Absolute Eosinophil Count 0.46 10^3/uL (0.0-0.7); Absolute Lymphocyte Count 1.58 10^3/uL (1.2-3.4); Absolute Monocyte Count 0.79 10^3/uL (0.1-0.8); Absolute Neutrophil Count 4.73 10^3/uL (1.2-6.7); Basophils % 0.8 %; HGB 13.1 g/dL (13.5-17.5); Immature Grans % 0.1 %; Lymphocytes % 20.7 %; MCH 33.5 pg (27.0-33.0); MCHC 33.6 % (32.0-36.0); MCV 100 fL (80-95); Monocytes % 10.4 %; Platelet Count 294 10^3/uL (130-400); RBC 3.91 10^6/uL (4.36-5.78); RDW 12.7 % (11.8-14.1); RDW-SD 46.6 fL; WBC 7.63 10^3/uL (4.4-10.8)
[2024-04-02 17:39] LABS: Vitamin B12 1580 pg/mL (193-986)
[2024-04-02 18:54] LABS: ALT 34 U/L (16-63); AST 17 U/L (15-37); Albumin 3.8 g/dL (3.4-5.0); Alkaline Phosphatase 75 U/L (46-116); Anion Gap 13.3 mmol/L (3-11); BUN 22 mg/dL (7-18); Bilirubin, Total 1.59 mg/dL (0.2-1.0); CO2 23.7 mmol/L (21.0-32.0); CREATININE 1.1 mg/dL (0.70-1.30); Calcium 10.1 mg/dL (8.5-10.1); Calculated LDL 67 mg/dL (<100); Chloride 108 mmol/L (98-107); Cholesterol 149 mg/dL (<200); Estimated GFR 67.02 (mL/min/1.73m2); Glucose 85 mg/dL (74-106); HDL Cholesterol 68 mg/dL (40-60); Potassium 4.4 mmol/L (3.5-5.1); Sodium 145 mmol/L (136-145); Total Protein 6.9 g/dL (6.4-8.2); Triglyceride 70 mg/dL (<150)
[2024-04-03 19:02] LABS: PSA, Screening 0.9 ng/mL (<=6.5)
== END 2024-04-02 15:04 | disposition home or self-care (01) ==
LOC: NCHCN 15:03
PROVIDERS: PCP Nurse Practitioner Family; Visit Provider Nurse Practitioner Family
DX: D75.89 Other specified diseases of blood and blood-forming organs (principal); N40.0 Benign prostatic hyperplasia without lower urinary tract symptoms; Z12.5 Encounter for screening for malignant neoplasm of prostate
CPT/HCPCS: 80053; 80061; 84153; 82607; 85025

== ENCOUNTER → 2024-04-25 14:04 | Outpatient (BNVA) | payer MEDICARE, OTHER, SELFPAY | PROVIDERS: PCP Nurse Practitioner Family; Referring Provider Nurse Practitioner Family; Visit Provider Surgery | DX: K22.70 Barrett's esophagus without dysplasia (principal); R13.10 Dysphagia, unspecified; K21.9 Gastro-esophageal reflux disease without esophagitis | CPT/HCPCS: 99214 ==

== ENCOUNTER 2024-04-30 08:03 | Day surgery (SDC) | payer MEDICARE, OTHER, SELFPAY ==
--- NOTE | 2024-04-29 10:08 | W.PM.ENDDOP ---
Date of service: 04/30/24 Time of Service: 10:19 Endoscopy Report DATE OF PROCEDURE: 04/30/24 PRE-OP DIAGNOSIS: GERD/Morgan's POST-OP DIAGNOSIS: other (Hiatal hernia/severe esophagitis and esophageal ulcer/longstanding Morgan's/moderate gastritis) SURGEON: Cassidy Toscano ANESTHESIA TYPE: General:No Airway ESTIMATED BLOOD LOSS: 2 PATHOLOGY: other COMPLICATIONS: None DISPOSITION: same day PREP: Miralax/Dulcolax PROCEDURE DESCRIPTION: Informed consent was obtained from the pt; explaining the benefits and Risks: bleeding, infections, perforations {which could require surgery or antibiotics and prolonged hospital stay}, or ostomy, and complications of anaesthesia, sabi aspiration). The patient was take to the procedure room and placed in a supine position. Monitors were applied and a time out was done. The patients name, date of , procedure type, allergies to medications and metal in their body was reviewed. A bite block was placed and the patient was sedated. Once sedated and comfortable an Olympus gastroscope (see RN notes for scope #) was advanced through the oropharynx which was grossly normal, and passed into the esophagus. The proximal and mid-esophagus were normal. The distal esophagus does not show any: dilation/strictures/varices. He has a 5 cm sliding hiatal hernia. The scope was advanced into the stomach and through the pylorus into the proximal jejunum. A bx is taken for celiac Dx []. The duodenum was noted to be []. Biopsies were done of the duodenal bulb.. The scope was retracted back into the stomach and biopsies were taken of the antrum. There were no gastritis/gastropathy/ ulcers/masses noted. The scope was retroflexed. The cardia and fundus were noted to be normal. There [] a hiatal hernia noted. At the GE junction he has severe esophagitis and esophageal ulceration. He has 3 tongues of Morgan's: 1 is less than a centimeter, One is a centimeter, One is greater than 2 cm. He also has multiple ulcerations and a LA class B esophagitis. The scope was retracted back into the esophagus and biopsies were done of the GE junction (in all 4 quadrants) and distal esophagus (2cm above the GE junction). All specimens are retrieved and no bleeding was noted. The Z line was irregular. The GE junction was at cm. The scope was removed and the patient was woken up and taken back to [facility] in stable condition.
--- NOTE | 2024-04-29 10:10 | PDOC.DSDIS_ITS ---
Date of service: 04/30/24 Time of Service: 10:23 Discharge Plan Disposition Patient Disposition: Home Discharge Details Reason For Visit: EGD Attending Provider: Cassidy Toscano Primary Care Provider: Lori Carey Home Meds and New Rx's Prescriptions: New pantoprazole [Protonix] 40 mg tablet,delayed release (DR/EC) 40 mg PO DAILY 84 Days Qty: 84 6RF sucralfate [Carafate] 1 gram tablet 1 g PO QACHS Qty: 120 12RF Continued fluoxetine 10 mg capsule 10 mg PO DAILY clonazepam [Klonopin] 0.5 mg tablet 0.5 mg PO QHS PRN Rx Instructions: administer 30 minutes before bedtime cholecalciferol (vitamin D3) 25 mcg (1,000 unit) capsule 25 mcg PO DAILY cyanocobalamin (vitamin B-12) 1,000 mcg capsule 1,000 mcg PO DAILY saw palmetto 450 mg capsule 450 mg PO DAILY Rx Instructions: give with food (meal/snack) Tart Dow Extract 1,000 mg capsule 1,000 mg PO DIRECTED famotidine [Pepcid] 20 mg tablet 40 mg PO DAILY amlodipine 10 mg tablet 5 mg PO HS lisinopril 20 mg tablet 20 mg PO DAILY AM melatonin 10 mg capsule 10 mg PO HS PRN potassium chloride 20 mEq tablet extended release 20 meq PO DAILY clopidogrel [Plavix] 75 mg Tablet 75 mg PO DAILY Qty: 30 0RF atorvastatin 20 mg tablet 20 mg PO QHS Qty: 30 0RF acetaminophen 500 mg Tablet 1,500 mg PO DAILY PRN Discharge Instructions Additional Instructions: Post EGD Instruction ?You had anesthesia for your EGD/stomach scope today.? For your safety, please do the following for the next twenty-four (24) hours: Do Not operate a motor vehicle (car, truck, motorcycle, etc.) Do Not drink alcoholic beverages or use any recreational drugs for the first 24 hours or while taking pain medications. The medications in your body may have a reaction that can be dangerous. Do Not make any important decisions or sign any important papers You have just had a gastroscopy (EGD) or upper GI tract examination. It is important for your smooth recovery that you carefully follow the recommendations below. Do not hesitate to call if any questions should arise about your anesthesia, condition, or care. -Symptoms you may experience during the next 24 hours: ?1. Mild abdominal pain or excessive gas or a bloated feeling which improves wi th rest, liquids, eating? slightly, and walking as tolerated. 2. Drowsiness and/or forgetfulness because of the medications you were given. 3. A sore throat which you can treat with throat lozenges or by gargling with salt water 4-5 times a day. 4. Redness at the site of your IV which you can treat with warm compresses. SPECIAL INSTRUCTIONS: 1. You may resume your previous diet in one hour. We recommend a light meal to start, then progress as tolerated. 2. Restart regular medications in one hour. 3. No aspirin or non-steroidal containing medication for 24 hrs. 4. No lifting over 20 pounds or strenuous activity for the first 24 hours after your procedure. After 24 hours there are no restrictions on your activity, but you may feel fatigued for a few days. -Findings: severe Morgan's and esophagitis w/ ulcerations -Medications: Protonix daily for 12 weeks. carafate 1 gram po 4 times a day lifelong -Continue to follow lifestyle modifications: No alcohol, tobacco products, Aspirin or NSAID's (ibuprofen, Motrin, Naprosyn, aleve, etc).? Try to limit/avoid:? soda pop/any carbonated beverages, caffeine (including tea & chocolate), and acidic foods, (tomatoes, citrus, onions, p eppermints) spicy or fried/fatty foods. Do not lie down for 30 minutes after eating, and do not eat 2 hours prior to bedtime. Avoid wearing tight fitting clothing/ belts. Follow up: -My office will send a letter with the results of your biopsy?s in 2-3wks time. Call the office at [phone] (Office) or [phone] (Hospital), or go to the ER right away if you notice any of the followin. Vomiting blood and /or ?coffee ground? material. ?2. Worsening of abdominal pain or cramping. ?3. Trouble with breathing, cough, and/or fever (temperature above 101.5 F). 4. Increasing pain with swallowing. ?5. Chest pain. 6. Any new symptoms. 7. Worsening of the redness at the IV site Activity:: see above Diet:: see above Discharge Orders Discharge Orders: Discharge Order (Routine); Ordered 04/30/24 Ordered By: Cassidy Toscano DS: Diagnosis Discharge Diagnosis (1) Mitral valve prolapse: Status: Acute (2) Premature ventricular contractions: Status: Acute (3) AAA (abdominal aortic aneurysm): Status: Acute (4) Sensorineural hearing loss (SNHL) of both ears: Status: Acute (5) Barretts esophagus: Status: Acute Asessment and Plan: Patient is seen and examined after they are endoscopy.? Patient has minimal sore throat.? They have been able to tolerate liquids.? They do not have any nausea vomiting.? They are not having any chest pain or shortness of breath.? They have been able to pass gas and are not having any abdominal pain or distention.? They have not vomited any blood.? The vital signs have been stable-see nursing notes. We discussed findings on their endoscopy. We reviewed the importance of lifestyle modification-see discharge instructions We reviewed any new medications that the patient may be prescribed-see discharge instructions Patient will either be sent a letter with the biopsy results or follow-up in the office-see discharge instructions. Patient was given explicit instructions to follow-up regarding post endoscopy- refer to discharge Patient verbalized understanding and discharged in stable and satisfactory condition.? See nursing notes. (6) Dysphagia: Status: Acute (7) CVA (cerebral vascular accident): Status: Chronic (8) Expressive aphasia: Status: Acute (9) Hypersomnia: Status: Acute (10) Imbalance: Status: Acute (11) Cataract: (12) Chronic kidney disease: (13) BPH (benign prostatic hyperplasia): (14) HTN (hypertension): (15) Atherosclerosis of coronary artery without angina pectoris: (16) Anxiety: (17) Hiatal hernia with gastroesophageal reflux disease and esophagitis: Status: Acute
[2024-04-30 08:31] VITALS: BP 141/95; PULSE 62; RESP 16; TEMP 36.4; O2SAT 97
--- NOTE | 2024-04-30 09:24 | ANES.PREOP_ITS ---
General Info Date of Service Date Performed: 04/30/24 Height: 6 ft 5 in Weight: 84.8 kg Body Mass Index (BMI): 22.1 Surgical Procedure: Operation Date: 04/30/24 09:05 Proposed Procedure Side Surgeon p Gastroscopy Cassidy Toscano, DO Actual Procedure Side Surgeon p Gastroscopy Not Applicable Cassidy Toscano, DO Pre-Op Diagnosis Post-Op Diagnosis Severe reflux and Morgan's Meds Allergies and Home Medications Allergies Allergy/AdvReac Type Severity Reaction Status Date / Time pyridostigmine Allergy Severe Dizziness/L Verified 04/30/24 08:26 ighthead hydrochlorothiazide Allergy Unknown Dizziness/L Verified 04/30/24 08:26 ighthead metoprolol Allergy Unknown Dizziness/L Verified 04/30/24 08:26 ighthead lactose AdvReac Other (See Verified 04/30/24 08:26 Comment) Home Medication ?Medication ?Instructions ?Recorded atorvastatin 20 mg tablet 20 mg PO QHS #30 tabs 04/16/19 clopidogrel 75 mg tablet (Plavix) 75 mg PO DAILY #30 tabs 04/16/19 acetaminophen 500 mg tablet 1,500 mg PO DAILY PRN 02/08/22 clonazepam 0.5 mg tablet (Klonopin) 0.5 mg PO QHS PRN 04/05/22 cholecalciferol (vitamin D3) 25 25 mcg PO DAILY 03/04/24 mcg (1,000 unit) capsule cyanocobalamin (vitamin B-12) 1,000 mcg PO DAILY 03/04/24 1,000 mcg capsule saw palmetto 450 mg capsule 450 mg PO DAILY 03/04/24 sour dow extract 1,000 mg 1,000 mg PO DIRECTED 03/04/24 capsule (Tart Dow Extract) famotidine 20 mg tablet (Pepcid) 40 mg PO DAILY 03/13/24 amlodipine 10 mg tablet 5 mg PO HS 04/03/24 lisinopril 20 mg tablet 20 mg PO DAILY AM 04/03/24 melatonin 10 mg capsule 10 mg PO HS PRN 04/03/24 potassium chloride 20 mEq 20 meq PO DAILY 04/03/24 tablet,extended release fluoxetine 10 mg capsule 10 mg PO DAILY 04/25/24 Current Visit Medications: Current Medications Generic Name Dose Route Start Last Admin Trade Name Freq PRN Reason Stop Dose Admin Ringer's Solution 1,000 mls @ 80 mls/hr 04/30/24 06:00 IV 05/29/24 23:59 IN[facility]ION [facility] IV Miscellaneous Supplies 1 each 04/30/24 06:00 Iv Access IV 05/29/24 23:59 DIRECTED DILLAN Ondansetron HCl 4 mg 04/30/24 10:13 Ondansetron 4 Mg/2 Ml Vial IVP 05/30/24 10:12 Q4H PRN PRN Nausea / Vomiting Sodium Chloride 0 ml 04/30/24 06:00 Normal Saline Flush 10 Ml Syr IV 05/29/24 23:59 PRN PRN Sodium Chloride 0 ml 04/30/24 06:00 Normal Saline 10 Ml Vial IJ 05/29/24 23:59 DIRECTED PRN Sterile Water 0 ml 04/30/24 06:00 Water,Injection,Sterile 10 Ml Vial IJ 05/29/24 23:59 DIRECTED PRN PFSH Active Problems Active Problems: Problem Status Onset Code Thoracic aortic ectasia Acute I77.810 Migraine headache without aura Acute G43.009 Chronic headache Acute R51.9, G89.29 Orthostatic hypotension Acute I95.1 Hypersomnia Acute G47.10 Ear clicks Acute H93.19 Premature ventricular contractions Acute I49.3 AAA (abdominal aortic aneurysm) Acute I71.40 Imbalance Acute R26.89 Sensorineural hearing loss (SNHL) of both ears Acute H90.3 Mitral valve prolapse Acute I34.1 Dizziness Acute R42 ASCVD (arteriosclerotic cardiovascular disease) Acute I25.10 Dysphagia Acute R13.10 Pedal edema Acute R60.0 Ascending aorta dilatation Acute I77.810 Bradycardia Acute R00.1 NSVT (nonsustained ventricular tachycardia) Acute I47.2 Barretts esophagus Acute K22.70 Expressive aphasia Acute R47.01 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 related to acid reflux Non-rheumatic mitral valve disease Anemia Arthralgia of ankle BPH (benign prostatic hyperplasia) Ventricular tachycardia Ventricular premature complex Hx of urinary stone Constipation Total bilirubin, elevated Atypical chest pain Cerumen impaction Back pain Hay fever Kidney stones HTN (hypertension) Fatigue Osteoarthritis Enlarged prostate Gout Ankle pain Chronic kidney disease Pt. denies this Right hand weakness GERD (gastroesophageal reflux disease) Insomnia Anxiety Hyperlipidemia Hx of closed fracture R ankle, sternum Cataract Medical History Comments:: Pt. states his stroke and cardiac hx has not affected his functional capacity. States does have generalized weakness from stroke Surgical History Surgical History Hx of esophagogastroduodenoscopy (~02/2022) History of decompression of ulnar nerve left Hx of arthroscopic knee surgery left Hx of cholecystectomy Hx of colonoscopy Hx of cataract extraction Tobacco Smoking/Tobacco Use Status: Never Alcohol Alcohol Intake: current Alcohol intake frequency: holidays/special occasions only Substance Use Substance use: Never Substance use type: does not use Vital Signs and Lab Results Vital Signs Most Recent Vital Signs in EMR: Most Recent Vital Signs Temp Pulse Resp BP Pulse Ox 36.4 C L 62 16 141/95 H 97 04/30/24 08:31 04/30/24 08:31 04/30/24 08:31 04/30/24 08:31 04/30/24 08:31 Lab Results Blood Type / Crossmatch: No Data to Display Complete Blood Count: White Blood Count 7.63 10^3/uL (4.4-10.8) 04/02/24 12:25 Red Blood Count 3.91 10^6/uL (4.36-5.78) L 04/02/24 12:25 Hemoglobin 13.1 g/dL (13.5-17.5) L 04/02/24 12:25 Hematocrit 39.0 % (40.0-50.0) L 04/02/24 12:25 Platelet Count 294 10^3/uL (130-400) 04/02/24 12:25 Complete Metabolic Panel: Sodium 145 mmol/L (136-145) 04/02/24 12:25 Potassium 4.4 mmol/L (3.5-5.1) 04/02/24 12:25 Chloride 108 mmol/L (98-107) H 04/02/24 12:25 Carbon Dioxide 23.7 mmol/L (21.0-32.0) 04/02/24 12:25 BUN 22 mg/dL (7-18) H 04/02/24 12:25 Creatinine 1.1 mg/dL (0.70-1.30) 04/02/24 12:25 Est GFR (CKD-EPI 2020) 67.02 (mL/min/1.73m2) 04/02/24 12:25 Calcium 10.1 mg/dL (8.5-10.1) 04/02/24 12:25 Albumin 3.8 g/dL (3.4-5.0) 04/02/24 12:25 Glucose 85 mg/dL (74-106) 04/02/24 12:25 Liver Function Panel: Alanine Aminotransferase (ALT/SGPT) 34 U/L (16-63) 04/02/24 12: 25 Aspartate Amino Transf (AST/SGOT) 17 U/L (15-37) 04/02/24 12:25 Coagulation Panel: No Data to Display Cardiac Panel: No Data to Display Arterial Blood Gas: No Data to Display Venous Blood Gas: No Data to Display Pancreas Panel: No Data to Display Thyroid Panel: No Data to Display Infectious Disease: No Data to Display Blood Cultures: No Data to Display Toxicology Panel: No Data to Display Imaging and Studies Imaging and Studies Study information below may be from another EMR and interpreted by another provider. Please see original notes in EMR for more complete details. EKG Summary: EKG PATIENT NAME: Davonte Garcia UNIT #: [id number] ORDERING PROVIDER: Katherine Lugo M.D. PRIMARY CARE PROVIDER: LM FRITZ APRN DATE/TIME OF SERVICE: : 1940 PERFORMING LOCATION: .CARD APPROVED REPORT Exam: Resting ECG Reason for Exam: palpitations Patient Location: O HR:75 bpm ECG Measurements Heart Rate 75 AXIS NV 184 P 63 QRSd 89 QRS -10 QT 382 T39 QTc 427 Conclusion Sinus rhythm...normal P axis, V-rate 50- 99 Multiform ventricular premature complexes...short R-R, variable morphology Borderline low voltage, extremity leads...all extremity leads <0.6mV LVH by voltage...R >2.60mV in V5 or V6 <Electronically signed by KATHERINE LUGO MD in OV> E-Sign Date: 07/01/22 E-Sign Time: 1355 Stress Test Summary: Patient Name: Davonte Garcia Unit #: [id number] Loc: Ordering Provider: Katherine Lugo M.D. Status: [facility] Primary Care Provider: Lm Fritz Date of Exam: 07/12/22 Sex: M Admission Date: 07/12/22 : 1940 Age: 82 APPROVED REPORT Exam: Pharmacologic paired w/ low level exercise Patient Location: Out-Patient Room/Bed: Stress Nurse: Rhonda Van RN Ordering Provider:KATHERINE LUGO, Contact Number: BMI: 23.12 Baseline Rhythm: Sinus Bradycardia, 1DHB, PVCs Indications: Evaluate Myocardial Perfusion, ASCVD Medical History Medical History: HTN, AAA, Embolic stroke w/ left middle cerebral artery, PVCs, MV prolapse Cardiac Medications: Amlodipine, Lisinopril, Atorvastatin, Clopidogrel, Famotidine Allergies: Lactose Cardiac Risk Factors: PVD, HTN, FHX of CAD Previous Cardiac Procedures: None Pretest Chest Pain Characteristics: No chest pain Exercise History: Stair climber use Physical Disabilities: Chronic ankle brace use, unsteady gait Lung Sounds: Clear to auscultation Heart Sounds: Regular Stress Test Details Test: Pharmacologic stress was paired with low level exercise. Nuclear Acquisition: Rest Tc-99m/Stress Tc-99m 1 day Rest Isotope: Tc-99m Sestamibi. Dose: 11.0 Date: 07/12/2022 Injection Time: 0930 Stress Isotope: Tc-99m Sestamibi. Dose: 33.0 Date: 07/12/2022 Injection Time: 1120 HR Resting HR Supine: 57 bpmMax Heart Rate (APMHR): 140.564147 bpm Resting HR Standin bpmTarget HR (85% APMHR): 119.484478 bpm Max HR Achieved: 104 bpm % of APMHR: 74.29 Recovery HR: 79 bpm BP Resting BP Supine: 162/88 mmHg Resting BP Standin/74 mmHg Max BP: 162/88 mmHg Recovery BP: 148/80 mmHg ECG Resting ECG: Sinus Bradycardia, 1st degree AV block Ectopy: PVCs Stress ECG: Sinus Tachycardia ST Change: No significant ST segment changes noted Arrhythmia: PACs, multifocal PVCs Recovery ECG: Sinus Rhythm Recovery ST Change: No significant ST segment changes noted Recovery Arrhythmia: PACs, multifocal PVCs, PVC couplet Clinical Stress Symptoms: Dyspnea Exercise duration: 0 min55 sec Rate Pressure Product: [id number] Stress ECG Conclusion 1. Resting electrocardiogram showed first-degree AV block 2. Patient underwent testing using combination of low-level exercise and regadenoson 3. Peak heart rate achieved was 79% of predicted for age 4. Electrocardiographic portion of the test was nondiagnostic due to inadequate heart rate 5. See MPI report Stress Test Summary STAGE Time (mins) Speed (mph) Grade (%) HR [id number]/88 [id number]/74 1 min post Lexiscan [id number]/80 3 min post Lexiscan [id number]/68 6 min post Lexiscan [id number]/80 Patient attempted Kuldip protocol. Treadmill was stopped after 55 seconds by staff due to unsteady gait and concern for patient safety. Lexiscan given while patient walked at a speed of 1.2 mph and 0% grade. MPI Conclusion Myocardial perfusion is normal. There is no ischemia or evidence of prior infarction EF 52%, normal wall motion Radiologist Interpretation Radiologist Interpretation by: Jose Xavier MD Interpretation Date/Time: 07/12/2022 16:59:19 Ordered By: Katherine Lugo M.D. CC: Dictated By: Katherine Lugo M.D. 07/12/22 1136 <Electronically signed by Katherine Lugo M.D. in OV> 07/14/22 0803 Transcribed By: Katherine Lugo MD This is privileged, confidential information intended only for the provider named. Any use or distribution by any person other than this provider is strictly prohibited. If you receive this report in error, please notify us immediately at [phone] and return the original report to us at the address above. Thank-you. Echocardiogram Summary: 02/02/22: LVEF 60%. moderate MR. trace - mild TR. RVSP 25mmhg. ascending Ao 4.04 mm Anesthesia Assessment and Plan Anesthesia History Personal History: No History of Anesthesia Complications Family History: No Family History of Anesthesia Complications Exercise Tolerance Exercise Tolerance: Metabolic Equivalents>4 Pertinent Negatives Pertinent Negatives: No Major Cardiovascular Symptoms or Complaints and No Major Pulmonary Symptoms or Complaints Cardiac & Pulmonary Exam Cardiac Exam: Normal S1/S2 Heart Sounds Pulmonary Exam: Clear Bilateral Breath Sounds Implantable Cardiac Device Does patient have a Pacemaker or an ICD?: No Airway Exam Known Difficult Airway: No Mallampati Class: 2 Mouth Opening: Normal (> 3cm) Thyromental Distance: Greater than 3 cm Neck Range of Motion: Limited ROM Neck Circumference: Normal Teeth Condition: Normal Dentition and Removable Dentures/Plates Upper (patient left at home ) ASA Classification ASA Score: ASA 3 Emergency Case?: No NPO Status NPO Status: NPO Clears >2 hours, Solids >8 hours Anesthesia Plan Resuscitation Status: Full Code Anesthesia Technique: General Anesthesia Airway Planned: Natural Airway Monitors Used: Standard Monitors Preoperative Comments:: From Past Preop: Sig PMHx: COVID + in november, HTN (amlodipine, lisinopril), barretts/gerd (omeprazole, famot), CVA (clopidogrel), expressive aphasia. ECHO: mod MR, EF 60%. Previous Anes: - KIM with topical lido, prop 50/gtt at 75.
[2024-04-30 09:26] VITALS: BMI 22.1
[2024-04-30] MEDS: Lactated Ringers 1,000 ML 80 ML IV (09:38)
--- NOTE | 2024-04-30 09:55 | STOM_PTH ---
PATIENT: Davonte Garcia LOC: [facility] U#:[id number] AGE/SX: 84/M ROOM: RE04/30/[address]: Cassidy Toscano : 1940 BED: DIS: 04/30/2024 SPEC #: [id number] RECD: 04/30/24 12:33 STATUS: ALYCIA VELARDE #: [id number] DARLINE: 04/30/24 09:[address]: Cassidy Toscano DEPT: Surgical Specimen RECD BY: Sherri Winter ENTERED: 04/30/24 12:35 SP TYPE: STOMACH OTHR DR: Lori Carey Tissues: 1 - BIOPSY BOWEL 2 - STOMACH BIOPSY 3 - STOMACH BIOPSY 4 - ESOPHAGUS BIOPSY 5 - ESOPHAGUS BIOPSY Procedures: GROSS AND MICRO LEVEL 4 IMMUNOPEROXIDASE STAIN SPECIAL STAIN 1 Comments: [id number]
[2024-04-30 10:10] VITALS: BP 129/77; PULSE 54; RESP 16; TEMP 36.4; O2SAT 96
[2024-04-30 11:03] VITALS: BP 147/79; PULSE 53; RESP 18; TEMP 36.6; O2SAT 97
--- NOTE | 2024-04-30 11:21 | W.ANESPOSTOP ---
Postoperative Evaluation Date, Time and Location Date Performed: 04/30/24 Time Performed: 11:21 Patient Location: Day Surgery Unit Vital Signs Most Recent Imported Vital Signs: Most Recent Vital Signs Temp Pulse Resp BP Pulse Ox 36.6 C 53 L 18 147/79 H 97 04/30/24 11:03 04/30/24 11:03 04/30/24 11:03 04/30/24 11:03 04/30/24 11:03 Assessment Mental Status: Awake (Alert & Oriented to Patient Baseline) Airway and Respiratory Function: Patent airway with normal (patient baseline) respiratory exam Cardiovascular Function: Hemodynamically Stable Hydration Status: Adequately Hydrated Nausea & Vomiting: No Nausea or Vomiting Pain: Pt. Denies Any Pain Peripheral Nerve Block: Patient did not receive a nerve block
== END 2024-04-30 11:34 | disposition home or self-care (01) ==
LOC: SUR 08:03
PROVIDERS: PCP Nurse Practitioner Family; Visit Provider Surgery
PROC: 0DJ68ZZ Inspection of Stomach, Via Natural or Artificial Opening Endoscopic (ICD-10-PCS; CPT 43235; principal; 2024-04-30 09:00)
DX: K21.00 Gastro-esophageal reflux disease with esophagitis, without bleeding (principal); K22.70 Barrett's esophagus without dysplasia; K22.89 Other specified disease of esophagus; K31.89 Other diseases of stomach and duodenum
CPT/HCPCS: 43239; 88305; 88312; 88361; J2001; J2704

== ENCOUNTER → 2024-06-10 12:52 | Outpatient (BNVA) | payer MEDICARE, OTHER, SELFPAY | PROVIDERS: PCP Nurse Practitioner Family; Referring Provider Nurse Practitioner Family; Visit Provider Surgery | DX: K22.70 Barrett's esophagus without dysplasia (principal); K44.9 Diaphragmatic hernia without obstruction or gangrene; K21.00 Gastro-esophageal reflux disease with esophagitis, without bleeding; R13.10 Dysphagia, unspecified | CPT/HCPCS: 99213 ==

== ENCOUNTER 2024-08-27 14:09 | Outpatient (REF) | payer MEDICARE, OTHER, SELFPAY ==
[2024-08-27 16:23] LABS: Abs Immature Grans 0.01 10^3/uL (0.0-0.06); Absolute Basophil Count 0.04 10^3/uL (0.0-0.2); Absolute Eosinophil Count 0.24 10^3/uL (0.0-0.7); Absolute Lymphocyte Count 1.24 10^3/uL (1.2-3.4); Absolute Monocyte Count 0.44 10^3/uL (0.1-0.8); Absolute Neutrophil Count 2.84 10^3/uL (1.2-6.7); Basophils % 0.8 %; HCT 44.9 % (40.0-50.0); HGB 14.7 g/dL (13.5-17.5); Immature Grans % 0.2 %; Lymphocytes % 25.8 %; MCHC 32.7 % (32.0-36.0); MCV 101 fL (80-95); MPV 10.1 fL (8.0-11.0); Monocytes % 9.1 %; Neutrophils % 59.1 %; Platelet Count 153 10^3/uL (130-400); RBC 4.46 10^6/uL (4.36-5.78); RDW 12.8 % (11.8-14.1); RDW-SD 47.8 fL; Reticulocyte 0.9 % (0.5-2.4); WBC 4.81 10^3/uL (4.4-10.8)
[2024-08-27 16:28] LABS: Iron 86 ug/dL (65-175); Total Iron Binding Capacity 255 ug/dL (250-450); Transferrin Sat 34 % (20-55)
[2024-08-27 16:48] LABS: ALT 20 U/L (16-63); AST 17 U/L (15-37); Albumin 3.6 g/dL (3.4-5.0); Alkaline Phosphatase 72 U/L (46-116); Anion Gap 7.9 mmol/L (3-11); BUN 30 mg/dL (7-18); CO2 29.1 mmol/L (21.0-32.0); CREATININE 1.3 mg/dL (0.70-1.30); Calcium 10.1 mg/dL (8.5-10.1); Chloride 109 mmol/L (98-107); Estimated GFR 54.85 (mL/min/1.73m2); Ferritin 35 ng/mL (26-388); Glucose 81 mg/dL (74-106); Potassium 4.5 mmol/L (3.5-5.1); Sodium 146 mmol/L (136-145); Total Protein 6.9 g/dL (6.4-8.2)
== END 2024-08-27 14:10 | disposition home or self-care (01) ==
LOC: NCHCN 14:09
PROVIDERS: PCP Nurse Practitioner Family; Visit Provider Nurse Practitioner Family
DX: D75.89 Other specified diseases of blood and blood-forming organs (principal)
CPT/HCPCS: 80053; 82728; 83540; 83550; 85025; 85045

== ENCOUNTER 2025-03-11 13:15 | Outpatient (REF) | payer MEDICARE, OTHER, SELFPAY ==
[2025-03-11 15:45] LABS: Abs Immature Grans 0.01 10^3/uL (0.0-0.06); HCT 42.3 % (40.0-50.0); HGB 13.9 g/dL (13.5-17.5); Immature Grans % 0.2 %; MCH 31.9 pg (27.0-33.0); MCHC 32.9 % (32.0-36.0); MCV 97 fL (80-95); MPV 10.2 fL (8.0-11.0); Platelet Count 161 10^3/uL (130-400); RBC 4.36 10^6/uL (4.36-5.78); RDW 12.7 % (11.8-14.1); RDW-SD 46.3 fL; WBC 4.80 10^3/uL (4.4-10.8)
[2025-03-11 16:22] LABS: Iron 83 ug/dL (65-175); Total Iron Binding Capacity 262 ug/dL (250-450); Transferrin Sat 32 % (20-55)
[2025-03-11 16:25] LABS: ALT 23 U/L (16-63); AST 18 U/L (15-37); Albumin 3.5 g/dL (3.4-5.0); Alkaline Phosphatase 89 U/L (46-116); Anion Gap 6.9 mmol/L (3-11); BUN 22 mg/dL (7-18); Bilirubin, Total 1.2 mg/dL (0.2-1.0); CO2 29.1 mmol/L (21.0-32.0); Calcium 9.9 mg/dL (8.5-10.1); Calculated LDL 57 mg/dL (<100); Chloride 106 mmol/L (98-107); Cholesterol 138 mg/dL (<200); Estimated GFR 60.38 (mL/min/1.73m2); Ferritin 38 ng/mL (26-388); Glucose 109 mg/dL (74-106); HDL Cholesterol 58 mg/dL (>or=40); Potassium 4.0 mmol/L (3.5-5.1); Sodium 142 mmol/L (136-145); Total Protein 6.7 g/dL (6.4-8.2); Triglyceride 115 mg/dL (<150)
[2025-03-12 10:24] LABS: Transferrin 207 mg/dL (201-352)
== END 2025-03-11 13:16 | disposition home or self-care (01) ==
LOC: NCHCN 13:15
PROVIDERS: PCP Nurse Practitioner Family; Visit Provider Nurse Practitioner Family
DX: D64.9 Anemia, unspecified (principal); N40.0 Benign prostatic hyperplasia without lower urinary tract symptoms; I10 Essential (primary) hypertension
CPT/HCPCS: 80053; 80061; 82728; 83540; 83550; 84154; 84466; 85025

== ENCOUNTER 2025-03-18 16:24 | Outpatient (REF) | payer MEDICARE, OTHER, SELFPAY ==
[2025-03-19 09:35] LABS: Lyme Ab w Rflx to Lyme Confirm Negative (Negative)
[2025-03-21 14:10] LABS: B. miyamotoi PCR Negative (Negative); Babesia divergens/MO-1 Negative (Negative); Ehrlichia muris eauclairensis Negative (Negative)
== END 2025-03-18 16:25 | disposition home or self-care (01) ==
LOC: NCHCN 16:24
PROVIDERS: PCP Nurse Practitioner Family; Visit Provider Nurse Practitioner Family
DX: R53.83 Other fatigue (principal)
CPT/HCPCS: 87798; 86618